=== PATIENT | female | born 1940 | race Caucasian/White ===

== ENCOUNTER → 2016-11-15 | Outpatient (CLI) | payer BC, OTHER ==
[~2016-11-15] VITALS: Ht 149.9 cm; Wt 76.4 kg
[~2016-11-15] MED LIST: ACET-1256 PO; AREDS PO; ASPI81TA28 PO; CHOL100010 PO; CLC100 PO; CRD4 PO; FAMO20TA11 PO; GUAISYP4 PO; HYDR25TA4 PO; LOSA1TAB38 PO; LVNIS30 SQ; METH-589 PO; METO1TAB69 PO; METO50TA7 PO; MULT-506 PO; MULT60CA PO; OXYC-57 PO; PRAM0.129 PO; PRAM0.5T10 PO; SIMV20TA2 PO; ULT50X PO; WATER PILL PO
[2016-11-15 11:21] VITALS: Ht 149.9 cm; Wt 76.4 kg
--- NOTE | 2016-11-15 11:40 | HISTORY & PHYSICAL EXAMINATION ---
DATE OF ADMISSION: 12/03/2016 CHIEF COMPLAINT: Right knee pain. HISTORY OF PRESENT ILLNESS: Suzette is a 75-year-old female patient of Dr. Barreto from [facility] with a long history of right knee pain that has failed conservative treatment such as behavior modification, physical therapy, injections, [id number] oral analgesics and anti-inflammatories, and rest. She admits to pain on a daily basis with activity and at rest. No new injuries or falls. She states it makes it difficult for her to perform certain activities of daily living and elective activities. She states the pain is more medial. Denies any numbness or tingling distally. No calf pain. PAST MEDICAL HISTORY: 1. Hypertension. 2. Hyperlipidemia. 3. History of thyroid dysfunction. 4. GERD. 5. Osteoarthritis. 6. Obesity. PAST SURGICAL HISTORY: 1. Hysterectomy. 2. Left bunion great toe. 3. Left elbow fracture. 4. Bilateral cataract surgery. SOCIAL HISTORY: The patient denies any alcohol, tobacco or illegal drug use. Lives at home in a safe environment. FAMILY HISTORY: Noncontributory. MEDICATIONS: 1. Vitamin D3 1000 international units twice daily. 2. Doxazosin 4 mg tab daily. 3. Losartan 100 mg tab daily. 4. Metoprolol 100 mg tab daily. 5. Multivitamin. 6. Pramipexole 0.25 mg tab at bedtime. 7. Simvastatin 20 mg tab at bedtime. ALLERGIES: No known drug allergies. REVIEW OF SYSTEMS: The patient denies headache, chest pain, shortness of breath, fevers, chills or night sweats. PHYSICAL EXAMINATION: GENERAL: The patient is alert and oriented x3 female. She is in no acute distress, pleasant, appears her currently stated age. HEAD, EYES, EARS, NOSE, AND THROAT: Head is atraumatic, normocephalic. Eyes are equal, round react to light and accommodation wearing glasses today. Her oral and nasal cavities are patent. No erythema or exudates. The patient has good dentition. No upper or lower dental plates. NECK: Supple. No JVD. No lymphadenopathy. CARDIAC: Regular rate and rhythm. S1 greater than S2. No murmurs, rubs or gallops appreciated. RESPIRATORY: Lungs are clear to auscultation bilaterally all lung schwab. No rales, rhonchi or wheezing. GASTROINTESTINAL: Abdomen is soft, nontender, nondistended. Normoactive bowel sounds all 4 quadrants. SKIN: Exam of the patient's right knee does not reveal any erythema, ecchymosis, abrasions, lacerations, skin breakdown or effusion. NEUROVASCULAR EXAMINATION: The right lower extremity distally reveals distal pulses +2. Capillary refill under 2 seconds. Good sensation with light touch. Toes freely mobile. +5 strength with dorsi and plantarflexion. Calf is supple, nontender. MUSCULOSKELETAL: Exam of the patient's right knee reveals range of motion 0, 3, 115 degrees with pain at endpoints. She has medial joint line tenderness. She has positive Elias's test with pain radiating medially. She has crepitation noted in the patellofemoral joint. Her extensor mechanism is intact. Ligaments are stable regarding cruciate and collateral ligaments. No obvious cystic changes or masses in the popliteal fossa. Mild antalgic gait appreciated. RADIOGRAPHS: The patient's right knee reveals periarticular osteophytosis, sclerotic bone change, joint space narrowing. There is no significant evidence of subchondral cyst formation, no fracture, dislocation, subluxation otherwise. IMPRESSION: Right knee osteoarthritis. PLAN: Suzette will undergo a right total knee arthroplasty by Dr. Lara from [facility] at the [facility] on 12/03/2016. She will require preoperative medical clearance through her PCP, Dr. Sabina Saleh on 11/18/2016. She already has an EKG and chest x-ray valid from February 2016 for her left knee surgery and that will be again utilized for her upcoming right knee replacement. She will obtain a preoperative CBC with diff, electrolytes, BUN, creatinine, PT/INR at the [facility] today after her visit with the preadmission testing. She will take her antihypertensive the morning of surgery with a sip of water. She is requesting to use [facility] home health services after discharge from the hospital, use Coumadin x6 weeks for DVT prophylaxis with a target INR of 2.0-3.0 and biweekly lab draws. Orders will be placed upon discharge for those along with physical therapy. Suzette will follow up with Dr. Lara 2 weeks after surgery at [facility] on 12/17/2016 for staple removal. Will discontinue any antiplatelets 1 week prior to surgery such as aspirin or [id number] oral anti-inflammatories. No other questions or concerns, if so notify [facility] at [phone].
--- NOTE | 2016-11-15 11:52 | PAT Medication Instructions ---
Service Date Nov 15, 2016. Current Home Medication List Acetaminophen (Tylenol), 1,000 MG PO Q6 PRN for Pain Cholecalciferol (Vitamin D), 2,000 INTER.UNIT PO QPM Doxazosin Mesylate (Doxazosin Mesylate), 1 TAB PO QPM Losartan Potassium (Cozaar), 100 MG PO QAM Methimazole (Methimazole ), 5 MG PO QAM Metoprolol Succ (Toprol Xl) (Toprol-Xl), 100 MG PO NOON Multiple Vitamins W/ Minerals (Preservision Areds 2), 2 CAP PO BID Pramipexole (Mirapex), 0.125 MG PO QPM Simvastatin (Zocor), 20 MG PO QPM Medication Instructions For Your Scheduled Surgery - Continue as usual: Metoprolol Succ (Toprol Xl) (Toprol-Xl), 100 MG PO NOON - Hold the following medications the morning of surgery: Multiple Vitamins W/ Minerals (Preservision Areds 2), 2 CAP PO BID Losartan Potassium (Cozaar), 100 MG PO QAM - Take the following medications the morning of surgery with a sip of water: Methimazole (Methimazole ), 5 MG PO QAM Acetaminophen (Tylenol), 1,000 MG PO Q6 PRN for Pain - Hold the following medications as scheduled the night before surgery: Pramipexole (Mirapex), 0.125 MG PO QPM - Take the following medications as scheduled the night before surgery: Simvastatin (Zocor), 20 MG PO QPM Multiple Vitamins W/ Minerals (Preservision Areds 2), 2 CAP PO BID\ Doxazosin Mesylate (Doxazosin Mesylate), 1 TAB PO QPM Cholecalciferol (Vitamin D), 2,000 INTER.UNIT PO QPM Acetaminophen (Tylenol), 1,000 MG PO Q6 PRN for Pain If you have any questions please call us at [phone] (Akosua Cruz PA-C) or [phone] or [phone]
[2016-11-15 12:22] LABS: BASO % 0.3 %; BASO ABS # 0.02 K/uL (0-0.2); COMPLETE YES; HEMATOCRIT 37.6 % (37-47); IG% 0.2 %; LYMPH % 22.8 %; LYMPH ABS # 1.47 K/uL (1.2-3.4); MEAN CELL VOLUME 87.4 fL (80-100); MEAN CORPUSCULAR HEMOGLOBIN 29.3 pg (25-34); MEAN CORPUSCULAR HGB CONC 33.5 g/dl (32-36); MEAN PLATELET VOLUME 9.3 fL (7.4-10.4); MONO % 7.6 %; NEUT % 65.1 %; PLATELET COUNT 197 K/uL (130-400); WHITE BLOOD COUNT 6.45 K/uL (4.8-10.8)
[2016-11-15 12:38] LABS: INR 1.1 (0.9-1.1); PROTHROMBIN TIME (PATIENT) 11.3 SECONDS (9.0-12.0)
[2016-11-15 13:06] LABS: BUN/CREATININE RATIO 22.7 (10-20); CALCIUM 8.3 mg/dl (8.5-10.1); CREATININE 0.69 mg/dl (0.60-1.20); POTASSIUM 3.5 mmol/L (3.5-5.1)
== END | disposition home or self-care (01) ==
LOC: C.LAB 08:00 → EDSTATUS 12-03 12:36
PROVIDERS: ATTEND Physical Medicine & Rehabilitation Sports Medicine
DX: M17.9 Osteoarthritis of knee, unspecified (principal)

== ENCOUNTER 2016-11-24 15:42 | Observation (INO) | payer BC, OTHER ==
[~2016-11-24] VITALS: Ht 149.9 cm; Wt 76.8 kg
[~2016-11-24 15:42] MED LIST changes: -AREDS PO; -ASPI81TA28 PO; -CLC100 PO; -FAMO20TA11 PO; -GUAISYP4 PO; -HYDR25TA4 PO; -LVNIS30 SQ; -METO1TAB69 PO; -MULT-506 PO; -OXYC-57 PO; -PRAM0.5T10 PO; -ULT50X PO; -WATER PILL PO
[2016-11-24] MEDS ORDERED: SODIUM CHLORIDE 0.9% 1000ML 1,000 ML IV STA (16:11)
[2016-11-24] MEDS ORDERED: ONDANSETRON INJ 2 MG/ML 2 ML VIAL IV STA (16:11)
[2016-11-24 16:21] LABS: BASO % 0.1 %; BASO ABS # 0.01 K/uL (0-0.2); COMPLETE YES; EOS % 1.6 %; HEMATOCRIT 39.3 % (37-47); IG% 0.1 %; LYMPH % 13.7 %; LYMPH ABS # 1.08 K/uL (1.2-3.4); MEAN CELL VOLUME 87.1 fL (80-100); MEAN CORPUSCULAR HEMOGLOBIN 30.6 pg (25-34); MEAN CORPUSCULAR HGB CONC 35.1 g/dl (32-36); MEAN PLATELET VOLUME 9.4 fL (7.4-10.4); MONO % 6.8 %; NEUT % 77.7 %; PLATELET COUNT 187 K/uL (130-400); RED BLOOD COUNT 4.51 M/uL (4.2-5.4); WHITE BLOOD COUNT 7.89 K/uL (4.8-10.8)
[2016-11-24] MEDS: MoRPHine SULFATE 4 MG/ML 1 ML CARP\\VIAL IV PRN ×3 (16:28→19:32)
[2016-11-24 16:29] LABS: PROTHROMBIN TIME (PATIENT) 11.1 SECONDS (9.0-12.0)
--- NOTE | 2016-11-24 16:32 | EMERGENCY ROOM VISIT NOTE ---
History Report prepared by Nawaf: Lala Hqaue Under the Supervision of: Dr. Roberth Bruce D.O. First contact with patient: 16:10 Chief Complaint: VOMITING Stated Complaint: VOMITING, TERRIBLE STOMACH Nursing Triage Summary: Vomiting since 1329. "I have a terrible stomach ache on my right side." Denies urinary symptoms. Pain with coughing. Denies SOB. History of Present Illness The patient is a 75 year old female who presents to the Emergency Room with complaints of constant vomiting beginning 2 and a half hours ago. She states that she had curly fries at [employer] and then she started vomiting consistently after that. She notes abdominal pain and chills. The patient denies any fever, back pain, and diarrhea. She notes that no one at home is sick. Source of History: patient Onset: 2.5 hours ago Position: other (global) Timing: constant Associated Symptoms: + abdominal pain, + chills, No back pain, No diarrhea, No fevers Review of Systems See HPI for pertinent positives & negatives. A total of 10 systems reviewed and were otherwise negative. Past Medical & Surgical Medical Problems: (1) High cholesterol (2) HTN (hypertension) (3) Left knee DJD Surgical Problems: (1) H/O: hysterectomy Family History No pertinent family history stated. Social History Smoking Status: Never Smoker Marital Status: Housing Status: lives with significant other Current/Historical Medications Scheduled Cholecalciferol (Vitamin D), 2,000 INTER.UNIT PO QPM Doxazosin Mesylate (Doxazosin Mesylate), 1 TAB PO QPM Losartan Potassium (Cozaar), 100 MG PO QAM Methimazole (Methimazole ), 5 MG PO QAM Metoprolol Succ (Toprol Xl) (Toprol-Xl ), 100 MG PO DAILY Pramipexole (Mirapex), 0.125 MG PO QPM Simvastatin (Zocor), 20 MG PO QPM [Water Pill], 1 TAB PO DAILY Scheduled PRN Acetaminophen (Tylenol), 1,000 MG PO Q6 PRN for Pain Allergies Coded Allergies: Latex1 -Allergic Contact Dermititis (Verified Allergy, Unknown, RASH, 11/24) NO KNOWN DRUG ALLERGIES (Verified Allergy, Unknown, NKDA, 11/24/16) Physical Exam Vital Signs Date Time Temp Pulse Resp B/P Pulse Ox O2 Delivery O2 Flow Rate FiO2 11/24/16 20:33 77 14 123/98 98 Nasal Cannula 2.0 11/24/16 19:33 76 20 151/96 93 Room Air 11/24/16 18:08 71 20 168/90 98 Room Air 11/24/16 17:10 68 20 186/94 96 Room Air 11/24/16 16:24 68 11/24/16 15:46 36.8 68 18 184/104 97 Room Air Physical Exam GENERAL: Patient is awake, alert, somewhat anxious appearing and uncomfortable. EYES: The conjunctivae are clear. The pupils are round and reactive. EARS, NOSE, MOUTH AND THROAT: The nose is without any evidence of any deformity. Mucous membranes are moist tongue is midline NECK: The neck is nontender and supple. RESPIRATORY: Normal respiratory effort is noted there is no evidence of wheezing rhonchi or rales CARDIOVASCULAR: Regular rate and rhythm noted there no murmurs rubs or gallops normal S1 normal S2 GASTROINTESTINAL: Moderately distended but soft RUQ tenderness to palpation but no definite guarding or rigidity. BACK: No midline tenderness or or step-off noted range of motion in flexion extension as well as rotation no signs of muscle spasm noted. No tenderness and no CVA tenderness to palpation. MUSCULOSKELETAL/EXTREMITIES: There is no evidence of gross deformity full range of motion is noted in the hips and shoulders SKIN: There is no obvious evidence of any rash. There are no petechiae, pallor or cyanosis noted. NEUROLOGIC: Patient is awake alert and oriented x3 Medical Decision & Procedures ER Provider Diagnostic Interpretation: X ray results and stated below per my interpretation and radiology interpretation. Other radiology results per my review and radiologist interpretation: SINGLE VIEW CHEST FINDINGS: An AP, portable, upright chest radiograph is compared to study dated 01/23/2016. The examination is degraded by portable technique and patient rotation. The heart is mildly enlarged and there is atherosclerotic calcification of the thoracic aorta. The pulmonary vasculature is noncongested. Chronic interstitial thickening is unchanged. Linear atelectasis versus scarring is again seen in the left lower lung. No airspace consolidation or large pleural effusion is identified. No pneumothorax is seen. The skeletal structures are osteopenic. There are healed right-sided rib fractures. IMPRESSION: Cardiomegaly and chronic changes as above. There is no acute cardiopulmonary abnormality. Electronically signed by: Oswald Cunningham M.D. 11/24/2016 4:39 PM Dictated Date/Time: 11/24/2016 4:37 PM KUB FINDINGS: 2 AP abdominal radiographs are obtained. No prior studies are available for comparison at the time of dictation. There is a nonobstructed abdominal bowel gas pattern noting moderate to severe colonic fecal retention. No evidence of intraperitoneal free air is seen. There are no abnormal abdominal calcifications. Numerous phleboliths are identified in the pelvis. The skeletal structures are osteopenic. There is mild to moderate lumbosacral spondylosis as well as scoliosis. The bony pelvis appears intact. Cardiac enlargement is observed. The lung bases are otherwise clear as imaged. IMPRESSION: Nonobstructed abdominal bowel gas pattern noting moderate to severe colonic fecal retention. Electronically signed by: Oswald Cunningham M.D. 11/24/2016 4:57 PM Dictated Date/Time: 11/24/2016 4:56 PM ULTRASOUND RIGHT UPPER QUADRANT ABDOMEN FINDINGS: Liver: The liver is normal in size and echotexture. There is no intrahepatic biliary ductal dilatation. The main portal vein is patent. Gallbladder: The gallbladder is normal in appearance. No gallstones are identified. There is no gallbladder wall thickening or pericholecystic fluid. A sonographic Vera's sign is reportedly absent. The common bile duct measures up to 0.6 cm in diameter. Pancreas: Visualized portions of the pancreatic head and body are normal in appearance. The splenic vein is patent. Right kidney: Survey images of the right kidney demonstrate cortical atrophy. There is no hydronephrosis. Ascites: None. IMPRESSION: Unremarkable sonographic assessment of the right upper quadrant. No gallstones are identified. Electronically signed by: Oswald Cunningham M.D. 11/24/2016 5:38 PM Dictated Date/Time: 11/24/2016 5:[address] SCAN OF THE ABDOMEN AND PELVIS WITHOUT IV CONTRAST FINDINGS: Lung bases: The heart is normal in size and there is trace pericardial effusion. The lung bases are clear. There is a small to moderate hiatal hernia. There is subareolar density in the left breast, best seen on axial image #30. Liver: The unenhanced liver is normal in size, contour, and attenuation. There is no intrahepatic biliary ductal dilatation. Gallbladder: Unremarkable. Spleen: Normal in size and attenuation. Pancreas: Unremarkable. Adrenal glands: Unremarkable. Kidneys: The unenhanced kidneys demonstrate cortical atrophy and are without hydronephrosis. There are no renal calculi identified. A 1.5 cm hyperdense lesion arising from the right lower pole likely represents a complex/hemorrhagic cyst. Abdominal vasculature: The abdominal aorta is normal in course and caliber noting mild to moderate atherosclerotic calcification. Bowel: The small bowel and colon are normal in course and caliber. There is moderate colonic fecal retention. The appendix is well-visualized and normal. Peritoneum: There is no intraperitoneal free air or abdominal ascites. There is a small fat-containing umbilical hernia. Lymphadenopathy: None. Pelvic viscera: The bladder is normal as visualized. The uterus is surgically absent. There is a complex solid and cystic mass lesion in the right adnexa, best seen on axial image #365 and likely related to right ovary. This measures 4.5 x 7.5 x 5.5 cm and demonstrates large foci of mural nodularity. There is mild prominence of the left ovary for age which measures up to 2 cm in axial length as seen on image #344. Numerous phleboliths are observed in the pelvis. Skeletal structures: The skeletal structures are osteopenic. There is moderate lumbosacral spondylosis. No lytic or blastic lesions are seen. There are healed right-sided rib fractures. IMPRESSION: 1. Suboptimal examination without oral and IV contrast. 2. There are no acute infectious or inflammatory findings in the abdomen or pelvis. 3. There is a 7.5 cm solid and cystic mass lesion in the right adnexa, likely related to the right ovary. The appearance is highly concerning for ovarian neoplasm. Gynecologic follow-up is recommended. 4. The left ovary also appears enlarged for age and may be involved. 5. Moderate constipation. 6. There is no evidence of metastatic disease in the abdomen or pelvis. 7. There is indeterminant subareolar density in the left breast which appears asymmetric to the right. If not recently performed follow-up with an outpatient mammogram is recommended. Electronically signed by: Oswald Cunningham M.D. 11/24/2016 6:50 PM Dictated Date/Time: 11/24/2016 6:40 PM Laboratory Results 11/24/16 16:05 Red Blood Count 4.51, Mean Corpuscular Volume 87.1, Mean Corpuscular Hemoglobin 30.6, Mean Corpuscular Hemoglobin Concent 35.1, Mean Platelet Volume 9.4, Neutrophils (%) (Auto) 77.7, Lymphocytes (%) (Auto) 13.7, Monocytes (%) (Auto) 6.8, Eosinophils (%) (Auto) 1.6, Basophils (%) (Auto) 0.1, Neutrophils # (Auto) 6.12, Lymphocytes # (Auto) 1.08, Monocytes # (Auto) 0.54, Eosinophils # (Auto) 0.13, Basophils # (Auto) 0.01 11/24/16 16:05 Test 11/24/16 16:00 11/24/16 16:05 Urine Color YELLOW Urine Appearance CLOUDY (CLEAR) Urine pH 8.0 (4.5-7.5) Urine Specific [place] 1.010 (1.000-1.030) Urine Protein NEG (NEG) Urine Glucose (UA) NEG (NEG) Urine Ketones NEG (NEG) Urine Occult Blood TRACE (NEG) Urine Nitrite NEG (NEG) Urine Bilirubin NEG (NEG) Urine Urobilinogen NEG (NEG) Urine Leukocyte Esterase TRACE (NEG) Urine WBC (Auto) 1-5 /hpf (0-5) Urine RBC (Auto) 5-10 /hpf (0-4) Urine Hyaline Casts (Auto) 1-5 /lpf (0-5) Urine Epithelial Cells (Auto) >30 /lpf (0-5) Urine Bacteria (Auto) 1+ (NEG) White Blood Count 7.89 K/uL (4.8-10.8) Red Blood Count 4.51 M/uL (4.2-5.4) Hemoglobin 13.8 g/dL (12.0-16.0) Hematocrit 39.3 % (37-47) Mean Corpuscular Volume 87.1 fL (80-100) Mean Corpuscular Hemoglobin 30.6 pg (25-34) Mean Corpuscular Hemoglobin Concent 35.1 g/dl (32-36) Platelet Count 187 K/uL (130-400) Mean Platelet Volume 9.4 fL (7.4-10.4) Neutrophils (%) (Auto) 77.7 % Lymphocytes (%) (Auto) 13.7 % Monocytes (%) (Auto) 6.8 % Eosinophils (%) (Auto) 1.6 % Basophils (%) (Auto) 0.1 % Neutrophils # (Auto) 6.12 K/uL (1.4-6.5) Lymphocytes # (Auto) 1.08 K/uL (1.2-3.4) Monocytes # (Auto) 0.54 K/uL (0.11-0.59) Eosinophils # (Auto) 0.13 K/uL (0-0.5) Basophils # (Auto) 0.01 K/uL (0-0.2) RDW Standard Deviation 41.6 fL (36.4-46.3) RDW Coefficient of Variation 13.0 % (11.5-14.5) Immature Granulocyte % (Auto) 0.1 % Immature Granulocyte # (Auto) 0.01 K/uL (0.00-0.02) Prothrombin Time 11.1 SECONDS (9.0-12.0) Prothromb Time International Ratio 1.0 (0.9-1.1) Activated Partial Thromboplast Time 25.5 SECONDS (21.0-31.0) Partial Thromboplastin Ratio 1.0 Anion Gap 10.0 mmol/L (3-11) Est Creatinine Clear Calc Drug Dose 53.2 ml/min Estimated GFR () 80.5 Estimated GFR (Non- 69.5 BUN/Creatinine Ratio 20.8 (10-20) Calcium Level 8.4 mg/dl (8.5-10.1) Total Bilirubin 0.9 mg/dl (0.2-1) Direct Bilirubin 0.2 mg/dl (0-0.2) Aspartate Amino Transf (AST/SGOT) 10 U/L (15-37) Alanine Aminotransferase (ALT/SGPT) 19 U/L (12-78) Alkaline Phosphatase 113 U/L (45-117) Total Creatine Kinase 53 U/L (26-192) Creatine Kinase MB < 0.5 ng/ml (0.5-3.6) Creatine Kinase MB Ratio (0-3.0) Troponin I < 0.015 ng/ml (0-0.045) Total Protein 7.5 gm/dl (6.4-8.2) Albumin 3.5 gm/dl (3.4-5.0) Lipase 149 U/L (73-393) Laboratory results per my review. Medications Administered Medications (Trade) Dose Ordered Sig/Vasile Route Start Time Stop Time Status Last Admin Dose Admin Sodium Chloride (Nss 1000ml) 1,000 ml @ 999 mls/hr Q1H1M STAT IV 11/24/16 16:11 11/24/16 17:11 DC 11/24/16 16:28 999 MLS/HR Morphine Sulfate (MoRPHine SULFATE INJ) 4 mg Q15M PRN IV 11/24/16 16:15 12/08/16 16:14 11/24/16 19:32 4 MG Ondansetron HCl (Zofran Inj) 4 mg NOW STAT IV 11/24/16 16:11 11/24/16 16:13 DC 11/24/16 16:28 4 MG Potassium Chloride (Kcl 10 Meq / Wtr) 10 meq NOW STAT IV 11/24/16 17:07 11/24/16 17:08 DC 11/24/16 18:06 10 MEQ ECG Indication: vomiting Rate (beats per minute): 64 Rhythm: normal sinus Findings: no ectopy, other (no st segment abnormalities) Comparison ECG Date: no prior available ED Course 1610: The patient was evaluated in room B9. A complete history and physical examination were performed. 1611: Zofran Inj 4mg IV, NSS 1,000 ml @ 999 mls/hr IV, Morphine Sulfate 4mg PRN IV pain. 1707: Potassium Chloride 10meq IV. 1830: I discussed the patient's case with Dr. Orozco. The patient will be evaluated for further management. 1835: Upon reevaluation, the patient is hemodynamically stable. I discussed results and treatment plan with the patient. She verbalizes agreement and understanding. I spoke with Dr. Orozco of the [facility]. The patient will be evaluated for further management and care. Medical Decision Differential diagnosis: Etiologies such as appendicitis, diverticulitis, PUD, biliary pathology, UTI, pancreatitis, obstruction, mesenteric ischemia, aortic pathology, infections, inflammatory bowel disease, renal colic, as well as others were entertained. Nursing notes reviewed. The patient is a 75-year-old female who presented to the emergency apartment for an evaluation of nausea vomiting. The patient ate a meal at a local restaurant and then started noticing severe nausea vomiting symptoms. She also had right-sided abdominal pain. Initially I thought the patient's condition was consistent with all bladder disorder. The patient did not appear to have any abnormality on ultrasound. I discussed the patient's laboratory radiographic studies with her. She was reevaluated multiple times. Because of her ongoing symptoms I did a noncontrast CT to see if there was any kidney stones. The patient was found have a pelvic mass as well as a possible breast mass. I discussed the patient's laboratory radiographic studies with her. I also discussed her case with the on-call [facility] hospitalist group because of her ongoing symptoms. She was treated with IV fluids IV pain medicine and IV antiemetics. She was also treated with potassium. Consults Time Called: 1932 Consulting Physician: Dr. Orozco Returned Call: [phone] I discussed the patient's case with Dr. Orozco. The patient will be evaluated for further management. Impression Primary Impression: Intractable abdominal pain Additional Impressions: Nausea & vomiting Hypokalemia Pelvic mass Breast mass Scribe Attestation The scribe's documentation has been prepared under my direction and personally reviewed by me in its entirety. I confirm that the note above accurately reflects all work, treatment, procedures, and medical decision making performed by me. Departure Information Dispostion Being Evaluated By Hospitalist Referrals Sabina Saleh M.D. (PCP) Patient Instructions My [facility] Problem Qualifiers
[2016-11-24 16:36] LABS: ALT/SGPT 19 U/L (12-78); AST/SGOT 10 U/L (15-37); BLOOD UREA NITROGEN 17 mg/dl (7-18); BUN/CREATININE RATIO 20.8 (10-20); CALCIUM 8.4 mg/dl (8.5-10.1); CARBON DIOXIDE 31 mmol/L (21-32); CHLORIDE 97 mmol/L (98-107); CREATININE 0.83 mg/dl (0.60-1.20); GLUCOSE 116 mg/dl (70-99); POTASSIUM 2.9 mmol/L (3.5-5.1); SODIUM 138 mmol/L (136-145)
[2016-11-24 16:41] LABS: ALKALINE PHOSPHATASE 113 U/L (45-117)
--- NOTE | 2016-11-24 16:41 | DIAGNOSTIC IMAGING REPORT ---
SINGLE VIEW CHEST CLINICAL HISTORY: Generalized abdominal pain. FINDINGS: An AP, portable, upright chest radiograph is compared to study dated 01/23/2016. The examination is degraded by portable technique and patient rotation. The heart is mildly enlarged and there is atherosclerotic calcification of the thoracic aorta. The pulmonary vasculature is noncongested. Chronic interstitial thickening is unchanged. Linear atelectasis versus scarring is again seen in the left lower lung. No airspace consolidation or large pleural effusion is identified. No pneumothorax is seen. The skeletal structures are osteopenic. There are healed right-sided rib fractures. IMPRESSION: Cardiomegaly and chronic changes as above. There is no acute cardiopulmonary abnormality. Electronically signed by: Oswald Cunningham M.D. 11/24/2016 4:39 PM Dictated Date/Time: 11/24/2016 4:37 PM
[2016-11-24] MEDS ORDERED: WATER PILL PO (16:49)
[2016-11-24] MEDS ORDERED: METO1TAB69 PO (16:50)
--- NOTE | 2016-11-24 16:59 | DIAGNOSTIC IMAGING REPORT ---
KUB CLINICAL HISTORY: Right-sided abdominal pain. FINDINGS: 2 AP abdominal radiographs are obtained. No prior studies are available for comparison at the time of dictation. There is a nonobstructed abdominal bowel gas pattern noting moderate to severe colonic fecal retention. No evidence of intraperitoneal free air is seen. There are no abnormal abdominal calcifications. Numerous phleboliths are identified in the pelvis. The skeletal structures are osteopenic. There is mild to moderate lumbosacral spondylosis as well as scoliosis. The bony pelvis appears intact. Cardiac enlargement is observed. The lung bases are otherwise clear as imaged. IMPRESSION: Nonobstructed abdominal bowel gas pattern noting moderate to severe colonic fecal retention. Electronically signed by: Oswald Cunningham M.D. 11/24/2016 4:57 PM Dictated Date/Time: 11/24/2016 4:56 PM
[2016-11-24 17:00] LABS: URINE APPEARANCE CLOUDY (CLEAR); URINE BILIRUBIN NEG (NEG); URINE COLOR YELLOW; URINE EPITHELIAL CELL AUTO >30 /lpf (0-5); URINE NITRITE NEG (NEG); UROBILINOGEN NEG (NEG)
[2016-11-24 17:04] LABS: MANUAL MICROSCOPIC REQUIRED? NO; REVIEW REQ? NO
[2016-11-24] MEDS ORDERED: POTASSIUM CHLORIDE 10 MEQ / 100ML WTR IV STA (17:07)
--- NOTE | 2016-11-24 17:40 | DIAGNOSTIC IMAGING REPORT ---
ULTRASOUND RIGHT UPPER QUADRANT ABDOMEN CLINICAL HISTORY: Right-sided abdominal pain. COMPARISON STUDY: KUB dated 11/24/2016. TECHNIQUE: Real-time, grayscale, and color flow sonography of the right upper quadrant of the abdomen was performed. Images are reviewed in the transverse and longitudinal planes. FINDINGS: Liver: The liver is normal in size and echotexture. There is no intrahepatic biliary ductal dilatation. The main portal vein is patent. Gallbladder: The gallbladder is normal in appearance. No gallstones are identified. There is no gallbladder wall thickening or pericholecystic fluid. A sonographic Vera's sign is reportedly absent. The common bile duct measures up to 0.6 cm in diameter. Pancreas: Visualized portions of the pancreatic head and body are normal in appearance. The splenic vein is patent. Right kidney: Survey images of the right kidney demonstrate cortical atrophy. There is no hydronephrosis. Ascites: None. IMPRESSION: Unremarkable sonographic assessment of the right upper quadrant. No gallstones are identified. Electronically signed by: Oswald Cunningham M.D. 11/24/2016 5:38 PM Dictated Date/Time: 11/24/2016 5:36 PM
--- NOTE | 2016-11-24 18:51 | DIAGNOSTIC IMAGING REPORT ---
CT SCAN OF THE ABDOMEN AND PELVIS WITHOUT IV CONTRAST CLINICAL HISTORY: Right-sided abdominal pain. COMPARISON STUDY: KUB and abdominal ultrasound dated 11/24/2016. TECHNIQUE: CT scan of the abdomen and pelvis is performed from the lung bases to the proximal femora. Images are reviewed in the axial, sagittal, and coronal planes. IV contrast was not administered for this examination as per the referring clinician. Note that the examination was performed and significant suboptimal fashion without oral and IV contrast. Automated dose control exposure was utilized. CT DOSE: 592.41 mGy.cm FINDINGS: Lung bases: The heart is normal in size and there is trace pericardial effusion. The lung bases are clear. There is a small to moderate hiatal hernia. There is subareolar density in the left breast, best seen on axial image #30. Liver: The unenhanced liver is normal in size, contour, and attenuation. There is no intrahepatic biliary ductal dilatation. Gallbladder: Unremarkable. Spleen: Normal in size and attenuation. Pancreas: Unremarkable. Adrenal glands: Unremarkable. Kidneys: The unenhanced kidneys demonstrate cortical atrophy and are without hydronephrosis. There are no renal calculi identified. A 1.5 cm hyperdense lesion arising from the right lower pole likely represents a complex/hemorrhagic cyst. Abdominal vasculature: The abdominal aorta is normal in course and caliber noting mild to moderate atherosclerotic calcification. Bowel: The small bowel and colon are normal in course and caliber. There is moderate colonic fecal retention. The appendix is well-visualized and normal. Peritoneum: There is no intraperitoneal free air or abdominal ascites. There is a small fat-containing umbilical hernia. Lymphadenopathy: None. Pelvic viscera: The bladder is normal as visualized. The uterus is surgically absent. There is a complex solid and cystic mass lesion in the right adnexa, best seen on axial image #365 and likely related to right ovary. This measures 4.5 x 7.5 x 5.5 cm and demonstrates large foci of mural nodularity. There is mild prominence of the left ovary for age which measures up to 2 cm in axial length as seen on image #344. Numerous phleboliths are observed in the pelvis. Skeletal structures: The skeletal structures are osteopenic. There is moderate lumbosacral spondylosis. No lytic or blastic lesions are seen. There are healed right-sided rib fractures. IMPRESSION: 1. Suboptimal examination without oral and IV contrast. 2. There are no acute infectious or inflammatory findings in the abdomen or pelvis. 3. There is a 7.5 cm solid and cystic mass lesion in the right adnexa, likely related to the right ovary. The appearance is highly concerning for ovarian neoplasm. Gynecologic follow-up is recommended. 4. The left ovary also appears enlarged for age and may be involved. 5. Moderate constipation. 6. There is no evidence of metastatic disease in the abdomen or pelvis. 7. There is indeterminant subareolar density in the left breast which appears asymmetric to the right. If not recently performed follow-up with an outpatient mammogram is recommended. Electronically signed by: Oswald Cunningham M.D. 11/24/2016 6:50 PM Dictated Date/Time: 11/24/2016 6:40 PM
[2016-11-24] MEDS ORDERED: ACETAMINOPHEN 325 MG TAB PO PRN (21:00)
[2016-11-24] MEDS ORDERED: MoRPHine SULFATE 4 MG/ML 1 ML CARP\\VIAL IV PRN (21:00)
[2016-11-24] MEDS ORDERED: ALUMINUM/MAGNESIUM/SIMETH (MAALOX MAX) 30 ML UDC PO PRN (21:00)
[2016-11-24] MEDS ORDERED: DiphenhydrAMINE HCL 50 MG/ML VIAL IV PRN (21:00)
[2016-11-24] MEDS ORDERED: PRAMIPEXOLE DIHYDROCHLORIDE 0.25MG TAB PO SCH (21:00)
[2016-11-24] MEDS ORDERED: MoRPHine SULFATE 2 MG/ML CARP IV PRN (21:00)
[2016-11-24] MEDS ORDERED: MAGNESIUM HYDROXIDE SUSP 30 ML UDC PO PRN (21:00)
[2016-11-24] MEDS ORDERED: BISACODYL 10 MG SUPP PR PRN (21:00)
[2016-11-24] MEDS ORDERED: LORAZEPAM 2 MG/ML 1 ML VIAL IV PRN (21:00)
[2016-11-24] MEDS ORDERED: ZOLPIDEM TARTRATE 5 MG TAB PO PRN ×2 (21:00)
[2016-11-24] MEDS ORDERED: IV FLUIDS COMPLETED PRN (21:00)
[2016-11-24] MEDS ORDERED: ONDANSETRON INJ 2 MG/ML 2 ML VIAL IV PRN ×2 (21:00)
[2016-11-24] MEDS ORDERED: PROMETHAZINE HCL INJ 12.5 MG in SODIUM CHLORIDE 0.9% 50ML 50 ML IV PRN (21:00)
[2016-11-24] MEDS ORDERED: DOXAZosin MESYLATE TAB 4 MG TAB PO SCH (21:00)
[2016-11-24 21:04] VITALS: Ht 149.9 cm; Wt 76.8 kg
[2016-11-24 22:10] VITALS: BP 130/88; PULSE 74; TEMP 36.8; O2SAT 96
[2016-11-24] MEDS ORDERED: LORAZEPAM INJ 0.5 MG in SYRINGE 0.75 ML IV PRN (22:30)
[2016-11-24] MEDS: NSS + 20MEQ KCL 1000ML 1,000 ML IV SCH (22:47)
[2016-11-24] MEDS: DOCUSATE SODIUM 100 MG CAP PO SCH (22:47)
--- NOTE | 2016-11-25 02:05 | History and Physical ---
History & Physical Date & Time of Service: Nov 25, 2016 at 01:51 Chief Complaint: Hypokalemia, Nausea, And Vomiting Primary Care Physician: Sabina Saleh M.D. History of Present Illness Source: patient The patient is a 75-year-old female who presents to the emergency department with complaint of constant abdominal pain, vomiting and chills that began about 2-1/2 hours prior to arrival. Her symptoms began shortly after eating curly fries at [employer]. Her whom is with her reports that he ate the same food and did not have any similar symptoms. She's had no recent travel, no sick exposures that she is aware. Past Medical/Surgical History Medical Problems: (1) High cholesterol Status: Chronic (2) HTN (hypertension) Status: Chronic Surgical Problems: (1) H/O: hysterectomy Status: Resolved Social History Smoking Status: Never Smoker Smokeless Tobacco Use: No Alcohol Use: none Drug Use: none Marital Status: Housing status: lives with family Multi-Drug Resistant Organisms History of MDRO: No Allergies Coded Allergies: Latex1 -Allergic Contact Dermititis (Verified Allergy, Unknown, RASH, 11/24) NO KNOWN DRUG ALLERGIES (Verified Allergy, Unknown, NKDA, 11/24/16) Home Medications Scheduled Cholecalciferol (Vitamin D), 2,000 INTER.UNIT PO QPM Doxazosin Mesylate (Doxazosin Mesylate), 1 TAB PO QPM Losartan Potassium (Cozaar), 100 MG PO QAM Methimazole (Methimazole ), 5 MG PO QAM Metoprolol Succ (Toprol Xl) (Toprol-Xl ), 100 MG PO DAILY Pramipexole (Mirapex), 0.125 MG PO QPM Simvastatin (Zocor), 20 MG PO QPM [Water Pill], 1 TAB PO DAILY Scheduled PRN Acetaminophen (Tylenol), 1,000 MG PO Q6 PRN for Pain Review of Systems The patient denies chest pain, palpitations, shortness of breath, cough, lower extremity swelling, vision change, hearing change, sore throat, fevers, chills, sweats, weight change, blood in urine or stool, dysuria, urinary frequency or urgency, headache, memory loss, rash, abnormal bruising or bleeding, imbalance , focal weakness, numbness or tingling in arms or legs, arthralgias or myalgias , back or neck pain, night sweats, or allergy symptoms. The review of systems is otherwise negative other than for that already noted above, and at least 10 systems have been reviewed. Physical Exam Vital Signs Date Time Temp Pulse Resp B/P Pulse Ox O2 Delivery O2 Flow Rate FiO2 11/25/16 00:21 Nasal Cannula 2.0 11/24/16 22:10 36.8 74 18 130/88 96 Nasal Cannula 2.0 11/24/16 21:04 Room Air 11/24/16 20:48 75 11/24/16 20:33 77 14 123/98 98 Nasal Cannula 2.0 11/24/16 19:33 76 20 151/96 93 Room Air 11/24/16 18:08 71 20 168/90 98 Room Air 11/24/16 17:10 68 20 186/94 96 Room Air 11/24/16 16:24 68 11/24/16 15:46 36.8 68 18 184/104 97 Room Air The patient is awake, well-developed and adequately nourished, alert and oriented 3, normocephalic and atraumatic, lying in bed and in no acute distress. HEENT--PERRL, EOMI, mucous membranes and oropharynx dry. Neck--supple, no JVD or bruits, thyroid normal, trachea midline, no adenopathy. Heart--normal S1 and S2, no extra beats, no murmurs, rubs or gallops. Lungs--clear bilaterally with good air movement, no respiratory distress, no accessory muscle use. Abdomen--normal bowel sounds and soft, nontender and nondistended, no hepatosplenomegaly. Extremities--no cyanosis, clubbing or edema. There are good distal pulses b/l. Dermatologic--normal skin turgor, normal color, warm and dry, no abnormal lymph nodes, no rash. Neurologic--cranial nerves II through XII grossly intact, motor and sensory examination normal. Rheumatologic--normal range of motion, nontender, muscles and joints. Psychiatric--normal affect. Diagnostics Laboratory Results Results Past 24 Hours Test 11/24/16 16:00 11/24/16 16:05 Range/Units Urine Color YELLOW Urine Appearance CLOUDY CLEAR Urine pH 8.0 4.5-7.5 Urine Specific [place] 1.010 1.000-1.030 Urine Protein NEG NEG Urine Glucose (UA) NEG NEG Urine Ketones NEG NEG Urine Occult Blood TRACE NEG Urine Nitrite NEG NEG Urine Bilirubin NEG NEG Urine Urobilinogen NEG NEG Urine Leukocyte Esterase TRACE NEG Urine WBC (Auto) 1-5 0-5 /hpf Urine RBC (Auto) 5-10 0-4 /hpf Urine Hyaline Casts (Auto) 1-5 0-5 /lpf Urine Epithelial Cells (Auto) >30 0-5 /lpf Urine Bacteria (Auto) 1+ NEG White Blood Count 7.89 4.8-10.8 K/uL Red Blood Count 4.51 4.2-5.4 M/uL Hemoglobin 13.8 12.0-16.0 g/dL Hematocrit 39.3 37-47 % Mean Corpuscular Volume 87.1 80-100 fL Mean Corpuscular Hemoglobin 30.6 25-34 pg Mean Corpuscular Hemoglobin Concent 35.1 32-36 g/dl Platelet Count 187 130-400 K/uL Mean Platelet Volume 9.4 7.4-10.4 fL Neutrophils (%) (Auto) 77.7 % Lymphocytes (%) (Auto) 13.7 % Monocytes (%) (Auto) 6.8 % Eosinophils (%) (Auto) 1.6 % Basophils (%) (Auto) 0.1 % Neutrophils # (Auto) 6.12 1.4-6.5 K/uL Lymphocytes # (Auto) 1.08 1.2-3.4 K/uL Monocytes # (Auto) 0.54 0.11-0.59 K/uL Eosinophils # (Auto) 0.13 0-0.5 K/uL Basophils # (Auto) 0.01 0-0.2 K/uL RDW Standard Deviation 41.6 36.4-46.3 fL RDW Coefficient of Variation 13.0 11.5-14.5 % Immature Granulocyte % (Auto) 0.1 % Immature Granulocyte # (Auto) 0.01 0.00-0.02 K/uL Prothrombin Time 11.1 9.0-12.0 SECONDS Prothromb Time International Ratio 1.0 0.9-1.1 Activated Partial Thromboplast Time 25.5 21.0-31.0 SECONDS Partial Thromboplastin Ratio 1.0 Sodium Level 138 136-145 mmol/L Potassium Level 2.9 3.5-5.1 mmol/L Chloride Level 97 98-107 mmol/L Carbon Dioxide Level 31 21-32 mmol/L Anion Gap 10.0 3-11 mmol/L Blood Urea Nitrogen 17 7-18 mg/dl Creatinine 0.83 0.60-1.20 mg/dl Est Creatinine Clear Calc Drug Dose 53.2 ml/min Estimated GFR () 80.5 Estimated GFR (Non- 69.5 BUN/Creatinine Ratio 20.8 10-20 Random Glucose 116 70-99 mg/dl Calcium Level 8.4 8.5-10.1 mg/dl Total Bilirubin 0.9 0.2-1 mg/dl Direct Bilirubin 0.2 0-0.2 mg/dl Aspartate Amino Transf (AST/SGOT) 10 15-37 U/L Alanine Aminotransferase (ALT/SGPT) 19 12-78 U/L Alkaline Phosphatase 113 45-117 U/L Total Creatine Kinase 53 26-192 U/L Creatine Kinase MB < 0.5 0.5-3.6 ng/ml Creatine Kinase MB Ratio 0-3.0 Troponin I < 0.015 0-0.045 ng/ml Total Protein 7.5 6.4-8.2 gm/dl Albumin 3.5 3.4-5.0 gm/dl Lipase 149 73-393 U/L Diagnostic Radiology Patient Name: TRUDI GONZALEZ Unit Number: [id number] Dictated: 11/24/161636 Transcribed: 11/24/161636 EV Printed Date/Time: [~ rep prt dt]/[~ rep prt tm] [~ rep ct labl] - [~ rep ct ivnm] [facility] [place] [place] [address] Dictated: 11/24/161636 Transcribed: 11/24/161636 EV Printed Date/Time: [~ rep prt dt]/[~ rep prt tm] [~ rep ct labl] - [~ rep ct ivnm] SINGLE VIEW CHEST CLINICAL HISTORY: Generalized abdominal pain. FINDINGS: An AP, portable, upright chest radiograph is compared to study dated 01/23/2016. The examination is degraded by portable technique and patient rotation. The heart is mildly enlarged and there is atherosclerotic calcification of the thoracic aorta. The pulmonary vasculature is noncongested. Chronic interstitial thickening is unchanged. Linear atelectasis versus scarring is again seen in the left lower lung. No airspace consolidation or large pleural effusion is identified. No pneumothorax is seen. The skeletal structures are osteopenic. There are healed right-sided rib fractures. IMPRESSION: Cardiomegaly and chronic changes as above. There is no acute cardiopulmonary abnormality. Electronically signed by: Oswald Cunningham M.D. 11/24/2016 4:39 PM Dictated Date/Time: 11/24/2016 4:37 PM The status of this report is Signed. Draft = Not yet reviewed or approved by Radiologist. Signed = Reviewed and approved by Radiologist. <AttendingPhy></AttendingPhy> <FamilyPhy>Sabina Saleh M.D.</FamilyPhy> < PrimaryPhy>Sabina Saleh M.D.</PrimaryPhy> <UnitNumber>[id number]</UnitNumber> < VisitNumber>[id number]</VisitNumber> <PatientName>TRUDI GONZALEZ</ PatientName> <DateOfBirth>1940</DateOfBirth> <Location>[facility]</Location> < ServiceDate>11/24/16</ServiceDate> <MNE>ESINDI</MNE> <OrderingPhy>Roberth Bruce D.O.</OrderingPhy> <OrderingPhyMNE>f rep ord dr bullock</OrderingPhyMNE> <DictatingPhyMNE>f rep dict dr bullock</DictatingPhyMNE> <CCListMNE>f rep ct kobe</ CCListMNE> <AdmittingPhyMNE>f pt admit dr bullock</AdmittingPhyMNE> <AttendingPhyMNE >f pt attend dr bullock</AttendingPhyMNE> <ConsultingPhyMNE>f pt consult dr bullock</ConsultingPhyMNE> <FamilyPhyMNE>f pt fam dr bullock</FamilyPhyMNE> <OtherPhyMNE>f pt other dr bullock</OtherPhyMNE> < PrimaryPhyMNE>f pt prim care dr bullock</PrimaryPhyMNE> <ReferringPhyMNE>f pt referring dr bullock</ReferringPhyMNE> Patient Name: TRUDI GONZALEZ Unit Number: [id number] Dictated: 11/24/161655 Transcribed: 11/24/161655 EV Printed Date/Time: [~ rep prt dt]/[~ rep prt tm] [~ rep ct labl] - [~ rep ct ivnm] [facility] Radiology Department [place] [id number] Dictated: 11/24/161655 Transcribed: 11/24/161655 EV Printed Date/Time: [~ rep prt dt]/[~ rep prt tm] [~ rep ct labl] - [~ rep ct ivnm] CLINICAL HISTORY: Right-sided abdominal pain. FINDINGS: 2 AP abdominal radiographs are obtained. No prior studies are available for comparison at the time of dictation. There is a nonobstructed abdominal bowel gas pattern noting moderate to severe colonic fecal retention. No evidence of intraperitoneal free air is seen. There are no abnormal abdominal calcifications. Numerous phleboliths are identified in the pelvis. The skeletal structures are osteopenic. There is mild to moderate lumbosacral spondylosis as well as scoliosis. The bony pelvis appears intact. Cardiac enlargement is observed. The lung bases are otherwise clear as imaged. IMPRESSION: Nonobstructed abdominal bowel gas pattern noting moderate to severe colonic fecal retention. Electronically signed by: Oswald Cunningham M.D. 11/24/2016 4:57 PM Dictated Date/Time: 11/24/2016 4:56 PM The status of this report is Signed. Draft = Not yet reviewed or approved by Radiologist. Signed = Reviewed and approved by Radiologist. <AttendingPhy></AttendingPhy> <FamilyPhy>Sabina Saleh M.D.</FamilyPhy> < PrimaryPhy>Sabina Saleh M.D.</PrimaryPhy> <UnitNumber>[id number]</UnitNumber> < VisitNumber>[id number]</VisitNumber> <PatientName>TRUDI GONZALEZ</ PatientName> <DateOfBirth>1940</DateOfBirth> <Location>[facility]</Location> < ServiceDate>11/24/16</ServiceDate> <MNE>ESINDI</MNE> <OrderingPhy>Roberth Bruce D.O.</OrderingPhy> <OrderingPhyMNE>f rep ord dr bullock</OrderingPhyMNE> <DictatingPhyMNE>f rep dict dr bullock</DictatingPhyMNE> <CCListMNE>f rep ct mne</ CCListMNE> <AdmittingPhyMNE>f pt admit dr bullock</AdmittingPhyMNE> <AttendingPhyMNE >f pt attend dr bullock</AttendingPhyMNE> <ConsultingPhyMNE>f pt consult dr bullock</ConsultingPhyMNE> <FamilyPhyMNE>f pt fam dr bullock</FamilyPhyMNE> <OtherPhyMNE>f pt other dr bullock</OtherPhyMNE> < PrimaryPhyMNE>f pt prim care dr bullock</PrimaryPhyMNE> <ReferringPhyMNE>f pt referring dr bullock</ReferringPhyMNE> Patient Name: TRUDI GONZALEZ Unit Number: [id number] Dictated: 11/24/161735 Transcribed: 11/24/161735 EV Printed Date/Time: [~ rep prt dt]/[~ rep prt tm] [~ rep ct labl] - [~ rep ct ivnm] [facility] [place] [place] [address] Dictated: 11/24/161735 Transcribed: 11/24/161735 EV Printed Date/Time: [~ rep prt dt]/[~ rep prt tm] [~ rep ct labl] - [~ rep ct ivnm] ULTRASOUND RIGHT UPPER QUADRANT ABDOMEN CLINICAL HISTORY: Right-sided abdominal pain. COMPARISON STUDY: KUB dated 11/24/2016. TECHNIQUE: Real-time, grayscale, and color flow sonography of the right upper quadrant of the abdomen was performed. Images are reviewed in the transverse and longitudinal planes. FINDINGS: Liver: The liver is normal in size and echotexture. There is no intrahepatic biliary ductal dilatation. The main portal vein is patent. Gallbladder: The gallbladder is normal in appearance. No gallstones are identified. There is no gallbladder wall thickening or pericholecystic fluid. A sonographic Vera's sign is reportedly absent. The common bile duct measures up to 0.6 cm in diameter. Pancreas: Visualized portions of the pancreatic head and body are normal in appearance. The splenic vein is patent. Right kidney: Survey images of the right kidney demonstrate cortical atrophy. There is no hydronephrosis. Ascites: None. IMPRESSION: Unremarkable sonographic assessment of the right upper quadrant. No gallstones are identified. Electronically signed by: Oswald Cunningham M.D. 11/24/2016 5:38 PM Dictated Date/Time: 11/24/2016 5:36 PM The status of this report is Signed. Draft = Not yet reviewed or approved by Radiologist. Signed = Reviewed and approved by Radiologist. <AttendingPhy></AttendingPhy> <FamilyPhy>Sabina Saleh M.D.</FamilyPhy> < PrimaryPhy>Sabina Saleh M.D.</PrimaryPhy> <UnitNumber>[id number]</UnitNumber> < VisitNumber>[id number]</VisitNumber> <PatientName>LISATRUDI J</ PatientName> <DateOfBirth>1940</DateOfBirth> <Location>[facility]</Location> < ServiceDate>11/24/16</ServiceDate> <MNE>ESINDI</MNE> <OrderingPhy>Roberth Bruce D.O.</OrderingPhy> <OrderingPhyMNE>f rep ord dr bullock</OrderingPhyMNE> <DictatingPhyMNE>f rep dict dr bullock</DictatingPhyMNE> <CCListMNE>f rep ct kobe</ CCListMNE> <AdmittingPhyMNE>f pt admit dr bullock</AdmittingPhyMNE> <AttendingPhyMNE >f pt attend dr bullock</AttendingPhyMNE> <ConsultingPhyMNE>f pt consult dr bullock</ConsultingPhyMNE> <FamilyPhyMNE>f pt fam dr bullock</FamilyPhyMNE> <OtherPhyMNE>f pt other dr bullock</OtherPhyMNE> < PrimaryPhyMNE>f pt prim care dr bullock</PrimaryPhyMNE> <ReferringPhyMNE>f pt referring dr bullock</ReferringPhyMNE> Patient Name: TRUDI GONZALEZ Unit Number: [id number] Dictated: 11/24/161839 Transcribed: 11/24/161839 EV Printed Date/Time: [~ rep prt dt]/[~ rep prt tm] [~ rep ct labl] - [~ rep ct ivnm] [facility] [place] [place] [address] Dictated: 11/24/161839 Transcribed: 11/24/161839 EV Printed Date/Time: [~ rep prt dt]/[~ rep prt tm] [~ rep ct labl] - [~ rep ct ivnm] CT SCAN OF THE ABDOMEN AND PELVIS WITHOUT IV CONTRAST CLINICAL HISTORY: Right-sided abdominal pain. COMPARISON STUDY: KUB and abdominal ultrasound dated 11/24/2016. TECHNIQUE: CT scan of the abdomen and pelvis is performed from the lung bases to the proximal femora. Images are reviewed in the axial, sagittal, and coronal planes. IV contrast was not administered for this examination as per the referring clinician. Note that the examination was performed and significant suboptimal fashion without oral and IV contrast. Automated dose control exposure was utilized. CT DOSE: 592.41 mGy.cm FINDINGS: Lung bases: The heart is normal in size and there is trace pericardial effusion. The lung bases are clear. There is a small to moderate hiatal hernia. There is subareolar density in the left breast, best seen on axial image #30. Liver: The unenhanced liver is normal in size, contour, and attenuation. There is no intrahepatic biliary ductal dilatation. Gallbladder: Unremarkable. Spleen: Normal in size and attenuation. Pancreas: Unremarkable. Adrenal glands: Unremarkable. Kidneys: The unenhanced kidneys demonstrate cortical atrophy and are without hydronephrosis. There are no renal calculi identified. A 1.5 cm hyperdense lesion arising from the right lower pole likely represents a complex/hemorrhagic cyst. Abdominal vasculature: The abdominal aorta is normal in course and caliber noting mild to moderate atherosclerotic calcification. Bowel: The small bowel and colon are normal in course and caliber. There is moderate colonic fecal retention. The appendix is well-visualized and normal. Peritoneum: There is no intraperitoneal free air or abdominal ascites. There is a small fat-containing umbilical hernia. Lymphadenopathy: None. Pelvic viscera: The bladder is normal as visualized. The uterus is surgically absent. There is a complex solid and cystic mass lesion in the right adnexa, best seen on axial image #365 and likely related to right ovary. This measures 4.5 x 7.5 x 5.5 cm and demonstrates large foci of mural nodularity. There is mild prominence of the left ovary for age which measures up to 2 cm in axial length as seen on image #344. Numerous phleboliths are observed in the pelvis. Skeletal structures: The skeletal structures are osteopenic. There is moderate lumbosacral spondylosis. No lytic or blastic lesions are seen. There are healed right-sided rib fractures. IMPRESSION: 1. Suboptimal examination without oral and IV contrast. 2. There are no acute infectious or inflammatory findings in the abdomen or pelvis. 3. There is a 7.5 cm solid and cystic mass lesion in the right adnexa, likely related to the right ovary. The appearance is highly concerning for ovarian neoplasm. Gynecologic follow-up is recommended. 4. The left ovary also appears enlarged for age and may be involved. 5. Moderate constipation. 6. There is no evidence of metastatic disease in the abdomen or pelvis. 7. There is indeterminant subareolar density in the left breast which appears asymmetric to the right. If not recently performed follow-up with an outpatient mammogram is recommended. Electronically signed by: Oswald Cunningham M.D. 11/24/2016 6:50 PM Dictated Date/Time: 11/24/2016 6:40 PM The status of this report is Signed. Draft = Not yet reviewed or approved by Radiologist. Signed = Reviewed and approved by Radiologist. <AttendingPhy></AttendingPhy> <FamilyPhy>Sabina Saleh M.D.</FamilyPhy> < PrimaryPhy>Sabina Saleh M.D.</PrimaryPhy> <UnitNumber>[id number]</UnitNumber> < VisitNumber>[id number]</VisitNumber> <PatientName>KHANH GONZALEZSIMONE Bell</ PatientName> <DateOfBirth>1940</DateOfBirth> <Location>[facility]</Location> < ServiceDate>11/24/16</ServiceDate> <MNE>ESINDI</MNE> <OrderingPhy>Roberth Bruce D.O.</OrderingPhy> <OrderingPhyMNE>f rep ord dr bullock</OrderingPhyMNE> <DictatingPhyMNE>f rep dict dr bullock</DictatingPhyMNE> <CCListMNE>f rep ct [place]</ CCListMNE> <AdmittingPhyMNE>f pt admit dr bullock</AdmittingPhyMNE> <AttendingPhyMNE >f pt attend dr bullock</AttendingPhyMNE> <ConsultingPhyMNE>f pt consult dr bullock</ConsultingPhyMNE> <FamilyPhyMNE>f pt fam dr bullock</FamilyPhyMNE> <OtherPhyMNE>f pt other dr bullock</OtherPhyMNE> < PrimaryPhyMNE>f pt prim care dr bullock</PrimaryPhyMNE> <ReferringPhyMNE>f pt referring dr bullock</ReferringPhyMNE> EKG EKG shows normal sinus rhythm at 64 bpm, there are no acute ST-T changes. Impression Assessment and Plan Nausea and vomiting--patient will be admitted to the medical floor, she will be made nothing by mouth except medications. She'll be placed on normal saline with potassium chloride 20 mEq at 100 mils per hour, Zofran 4 mg IV every 6 hours when necessary, pantoprazole 40 mg IV daily, and we'll repeat laboratories in the a.m. Differential includes food intolerance, viral gastroenteritis, toxin associated food poisoning among others. She will be primarily supportive at this time. Hypokalemia/dehydration--we'll place on normal saline with potassium chloride 20 mEq at 100 mils per hour, and hold her diuretic pill which was recently started. Hypertension--continue metoprolol succinate but change 100 mg by mouth daily 50 mg by mouth twice a day with hold parameters, doxazosin 1 mg by mouth every afternoon. Will hold losartan potassium 100 mg by mouth every morning, and unknown water pill daily. Hyperthyroidism--continue methimazole 5 mg by mouth every morning. Restless leg syndrome--continue Mirapex 0.125 mg by mouth every afternoon. Hypercholesterolemia--for now hold simvastatin 20 mg by mouth every evening. Level of Care Med/Surg Advanced Directives Existing Advance Directive: Yes Existing Living Will: Yes Existing Power of Stringing Machine Tender: Yes Resuscitation Status FULL RESUSCITATION VTE Prophylaxis VTE Risk Assessment Done? Y/N: Yes Risk Level: Moderate Given or contraindicated: SCD's Social Service Consult None Apply
[2016-11-25 06:21] LABS: BASO % 0.3 %; BASO ABS # 0.02 K/uL (0-0.2); COMPLETE YES; EOS % 0.6 %; HEMATOCRIT 33.2 % (37-47); IG% 0.1 %; LYMPH % 19.5 %; LYMPH ABS # 1.55 K/uL (1.2-3.4); MEAN CELL VOLUME 85.8 fL (80-100); MEAN CORPUSCULAR HEMOGLOBIN 29.7 pg (25-34); MEAN CORPUSCULAR HGB CONC 34.6 g/dl (32-36); MEAN PLATELET VOLUME 9.2 fL (7.4-10.4); MONO % 8.8 %; NEUT % 70.7 %; PLATELET COUNT 190 K/uL (130-400); RED BLOOD COUNT 3.87 M/uL (4.2-5.4); WHITE BLOOD COUNT 7.94 K/uL (4.8-10.8)
[2016-11-25 06:51] LABS: BUN/CREATININE RATIO 19.2 (10-20); CALCIUM 7.5 mg/dl (8.5-10.1); CREATININE 0.65 mg/dl (0.60-1.20); POTASSIUM 3.1 mmol/L (3.5-5.1)
[2016-11-25 07:22] VITALS: BP 122/72; PULSE 61; TEMP 36.7; O2SAT 99
[2016-11-25] MEDS: DOCUSATE SODIUM 100 MG CAP PO SCH (07:36)
[2016-11-25] MEDS: NSS + 20MEQ KCL 1000ML 1,000 ML IV SCH (07:37)
[2016-11-25 07:57] VITALS: O2SAT 97
[2016-11-25 08:00] VITALS: O2SAT 97
[2016-11-25] MEDS ORDERED: METOPROLOL SUCC 50MG EXT REL TAB PO SCH (08:00)
[2016-11-25] MEDS ORDERED: METHIMAZOLE 5 MG TAB PO SCH (08:00)
--- NOTE | 2016-11-25 13:47 | Discharge Instructions ---
Discharge Instructions Admission Admission Date: Nov 24, 2016 at 20:50 Admission Diagnosis: Hypokalemia, Nausea, And Vomiting. Discharge Care Plan - Problem: Medical Problems: (1) Breast mass (2) Hypokalemia (3) Intractable abdominal pain (4) Nausea & vomiting (5) Pelvic mass Care Plan - Goal(s): Improve function Care Plan - Instructions: Activity Recommendations: no limitations Recommended Home Diet: 1800 Bruce Wt Reduction, NPO Except Meds Provider Instructions: There is a 7.5 cm solid and cystic mass lesion in the right adnexa, likely related to the right ovary. The appearance is highly concerning for ovarian neoplasm. Gynecologic follow-up is recommended. VTE Core Measure Inpt VTE Proph given/why not?: Enoxaparin (Lovenox)SQ, SCD's Follow Up Follow-Up: Follow up with primary care physician for repeat potassium level in one week Follow up with Gynacologist for7.5 cm solid and cystic mass lesion in the right adnexa Work Instructions Return To Work: 5 days Lifting Limitations: none [place] Recommendations: Call your doctor if: * Temperature above 101 degrees * Pain not relieved by pain medicine ordered * There is increased drainage or redness from any incision * You have any unanswered questions or concerns. Your Doctors Instructions noted above were prepared by provider Sebastien Encinas.
[2016-11-25] MEDS ORDERED: FAMO20TA11 PO (14:00)
[2016-11-25] MEDS ORDERED: POTASSIUM CHLORIDE 20 MEQ TABCR PO ONE (14:00)
--- NOTE | 2016-11-25 14:11 | Discharge Summary ---
Discharge Summary Admission Date: Nov 24, 2016 at 20:50 Discharge Date: Nov 25, 2016 Discharge Disposition: Home Problems/Secondary Diagnoses: Nausea / vomiting likely gastritis hypokalemia Accidental discovery of right adnexal mass HTN Obesity Immunizations: Have You Had Influenza Vaccine: Unknown History of Tetanus Vaccine?: Unknown History of Pneumococcal: Unknown Medication Reconciliation New Medications: Famotidine (Pepcid) 20 Mg Tab 20 MG PO BID for 14 Days, #28 TAB Continued Medications: Acetaminophen (Tylenol) 500 Mg Tab 1000 MG PO Q6 PRN for Pain, TAB Cholecalciferol (Vitamin D) 1,000 Inter.unit Tab 2000 INTER.UNIT PO QPM, TAB Doxazosin Mesylate (Doxazosin Mesylate) 4 Mg Tab 1 TAB PO QPM for 90 Days, TAB 3 Refills Losartan Potassium (Cozaar) 100 Mg Tab 100 MG PO QAM, TAB Methimazole (Methimazole ) 5 Mg Tab 5 MG PO QAM Metoprolol Succ (Toprol Xl) (Toprol-Xl ) 100 Mg Tabcr 100 MG PO DAILY Pramipexole (Mirapex) 0.125 Mg Tab 0.125 MG PO QPM, TAB Simvastatin (Zocor) 20 Mg Tab 20 MG PO QPM, TAB [Water Pill] () Unknown Strength 1 TAB PO DAILY PATIENT UNAWARE OF MEDICAITON NAME. SHE JUST STARTED IT AND IT IS A DIRUETIC. IT IS NOT IN SURE SCRIPTS EITHER. Discharge Exam Review of Systems: Constitutional: No fever Eyes: No worsening of vision ENT: No hearing loss Respiratory: No cough, No shortness of breath, No sputum Cardiovascular: No chest pain Abdomen: No nausea, No vomiting Musculoskeletal: No joint pain, No muscle pain Physical Exam: General Appearance: WD/WN, no apparent distress Eyes: normal inspection, PERRL, EOMI ENT: normal ENT inspection, hearing grossly normal Neck: supple Respiratory/Chest: chest non-tender, lungs clear, normal breath sounds, no respiratory distress Cardiovascular: regular rate, rhythm, no edema, no gallop, no JVD, no murmur , normal peripheral pulses Abdomen / GI: non tender, soft, no organomegaly, no pulsatile mass Extremities: normal inspection Neurologic/Psychiatric: technical support coordinator II-XII nml as tested, no motor/sensory deficits , alert, normal mood/affect, oriented x 3 Skin: normal color, warm/dry, no rash Hospital Course [facility] started on IVF hydration and potassium supplement Vomiting resolved she was given oral potassium 40 mEq in the day of discharge also started on pepcid BID CT scan finding of 7.5 cm solid and cystic mass lesion in the right adnexa, likely related to the right ovary. The appearance is highly concerning for ovarian neoplasm. Gynecologic follow-up is recommended. The left ovary also appears enlarged for age and may be involved. There is indeterminant subareolar density in the left breast which appears asymmetric to the right. If not recently performed follow-up with an outpatient mammogram is recommended. she was instructed to follow up with PCP and [facility] as an out patient This includes examination of the patient, discharge planning, medication reconciliation, and communication with other providers. Discharge Instructions Please refer to the electronic Patient Visit Report (Discharge Instructions) for additional information.
[2016-11-25 14:35] VITALS: BP 122/72; PULSE 61; TEMP 36.7; O2SAT 97
[2017-02-17] MEDS ORDERED: HYDR25TA4 PO (16:42)
[2017-02-17] MEDS ORDERED: PRAM0.5T10 PO (16:42)
[2017-02-17] MEDS ORDERED: AREDS PO (16:42)
== END 2016-11-25 15:53 | disposition home or self-care (01) ==
LOC: ENRESERVTM → ENRESERVDT → C.EDB 15:43 → C.MS4W 20:50
PROVIDERS: ADMIT Hospitalist; ATTEND Hospitalist
DX: R11.2 Nausea with vomiting, unspecified (principal); E87.6 Hypokalemia; D49.59 Neoplasm of unspecified behavior of other genitourinary organ; I10 Essential (primary) hypertension; E66.9 Obesity, unspecified; E78.00 Pure hypercholesterolemia, unspecified; M17.12 Unilateral primary osteoarthritis, left knee; N63 Unspecified lump in breast; K44.9 Diaphragmatic hernia without obstruction or gangrene; G25.81 Restless legs syndrome; E05.90 Thyrotoxicosis, unspecified without thyrotoxic crisis or storm; M47.817 Spondylosis without myelopathy or radiculopathy, lumbosacral region; M41.9 Scoliosis, unspecified; Z91.040 Latex allergy status; Z90.710 Acquired absence of both cervix and uterus

== ENCOUNTER → 2016-11-27 | Outpatient (CLI) | payer BC ==
[~2016-11-27] MED LIST changes: +AREDS PO; +CLC100 PO; +FAMO20TA11 PO; +HYDR25TA4 PO; +LVNIS30 SQ; +METO1TAB69 PO; -METO50TA7 PO; -MULT60CA PO; +OXYC-57 PO; +PRAM0.5T10 PO; +ULT50X PO; +WATER PILL PO
--- NOTE | 2016-11-27 10:44 | DIAGNOSTIC IMAGING REPORT ---
PELVIC ULTRASOUND CLINICAL HISTORY: Ovarian cyst. COMPARISON STUDY: CT of the abdomen and pelvis November 24, 2016. TECHNIQUE: Transabdominal and transvaginal sonography of the pelvis was performed. FINDINGS: The patient is status post partial hysterectomy. The right ovary measures 8.2 x 5.5 x 5.7 cm and contains a complex cystic lesion that measures 7.4 x 4 x 3.9 cm. This lesion demonstrates wall irregularity with a peripheral nodular component that does not contain color flow. A few smaller cystic lesions within the right ovary measuring up to 2.4 cm. The left ovary measures 3.1 x 2.7 x 2.6 cm and contains a 1.7 cm hypoechoic lesion. Trace free fluid was noted within the left adnexa. Color flow is identified within each ovary. IMPRESSION: 1. Complex 7.4 cm cystic lesion arising from the right ovary. This is indeterminate and differential considerations include benign and malignant etiologies. This is pathologic in a postmenopausal patient and gynecologic consultation for consideration for resection is recommended. 2. Indeterminate 1.7 cm hypoechoic left ovarian lesion. 3. Trace fluid within the left adnexa. Electronically signed by: Rian Barrett M.D. 11/27/2016 10:42 AM Dictated Date/Time: 11/27/2016 10:36 AM
== END | disposition home or self-care (01) ==
LOC: C.ULTRBC 09:36
PROVIDERS: ATTEND Family Medicine
DX: N83.209 Unspecified ovarian cyst, unspecified side (principal)

== ENCOUNTER 2017-03-04 05:11 | Inpatient (IN) | payer BC, OTHER ==
[2017-02-12 14:38] LABS: BASO % 0.4 %; BASO ABS # 0.03 K/uL (0-0.2); COMPLETE YES; EOS % 2.9 %; HEMATOCRIT 37.8 % (37-47); IG% 0.1 %; LYMPH % 23.8 %; LYMPH ABS # 1.73 K/uL (1.2-3.4); MEAN CELL VOLUME 88.9 fL (80-100); MEAN CORPUSCULAR HEMOGLOBIN 29.9 pg (25-34); MEAN CORPUSCULAR HGB CONC 33.6 g/dl (32-36); MEAN PLATELET VOLUME 9.7 fL (7.4-10.4); MONO % 9.9 %; NEUT % 62.9 %; PLATELET COUNT 206 K/uL (130-400); RED BLOOD COUNT 4.25 M/uL (4.2-5.4); WHITE BLOOD COUNT 7.27 K/uL (4.8-10.8)
[2017-02-12 14:50] LABS: BLOOD UREA NITROGEN 17 mg/dl (7-18); BUN/CREATININE RATIO 20.2 (10-20); CALCIUM 8.5 mg/dl (8.5-10.1); CARBON DIOXIDE 35 mmol/L (21-32); CHLORIDE 104 mmol/L (98-107); CREATININE 0.83 mg/dl (0.60-1.20); GLUCOSE 89 mg/dl (70-99); POTASSIUM 3.5 mmol/L (3.5-5.1); SODIUM 142 mmol/L (136-145)
[2017-02-17 16:35] VITALS: Ht 149.9 cm; Wt 75.9 kg
--- NOTE | 2017-02-26 12:32 | HISTORY & PHYSICAL EXAMINATION ---
DATE OF ADMISSION: 03/04/2017 FAMILY PHYISICIAN: Dr. Sabina Saleh. CHIEF COMPLAINT: Right knee pain times many years. HISTORY OF PRESENT ILLNESS: The patient is a pleasant 76-year-old female with a past medical history of osteoarthritis of her knees, benign positional vertigo, bilateral cataracts, gastroesophageal reflux disease, hyperlipidemia, hypertension, hyperthyroidism, hypokalemia, macular degeneration, osteoporosis, restless legs syndrome, and vitamin D deficiency, presents to our office with complaints of right knee pain. We have been seeing her for quite some time. She recently underwent a left total knee arthroplasty in 02/2016, she is doing well from that. Her right knee pain becomes unbearable at times. She does have some radiation down into her lower leg. Most of her pain is on the inside aspect of her knee and pain is increased with activity and weightbearing. She has decreased activities of daily living due to pain in her right knee. She has decreased range of motion due to pain and stiffness. She denies any joint effusion that she knows of. Aggravating activities include walking, going up and down stairs. She also has pain at rest and pain at night. Prior treatments include nonsteroidal anti-inflammatory drugs such as Advil. She has also taken Tylenol in the past with minimal relief. She has tried physical therapy for both of her knees approximately 2-3 years ago with no significant change. She has not tried viscosupplementation in the past. She states that this was offered to her but she did not feel that it was necessary, and with the amount of pain that she was having, she wanted to just proceed with surgery. She does use a cane when she is outside of the house. She does not use one inside of her house as she has obando and furniture to hold onto. She was recently seen by Dr. Lara. She has elected to proceed with an elective right total knee arthroplasty which is scheduled for 03/04/2017. PAST MEDICAL HISTORY: 1. Osteoarthritis, right knee. 2. Benign positional vertigo. 3. Status post left total knee arthroplasty. 4. Bilateral hearing loss. 5. Bilateral cataracts. 6. Dermatochalasis of eyelid. 7. Dry eye syndrome. 8. GERD. 9. Hyperlipidemia. 10. Hypertension. 11. Hyperthyroidism. 12. Hypokalemia. 13. Dry macular degeneration. 14. Myopia with presbyopia. 15. Osteoporosis. 16. History of pilonidal cyst. 17. Pseudophakia. 18. Restless legs syndrome. 19. Tubular adenoma. 20. Uterine fibroids. 21. Vitamin D deficiency. CURRENT MEDICATIONS: Include: 1. Cheratussin AC 10% 100 mg/5 mL as needed for cough. 2. Losartan 100 mg daily. 3. Metoprolol 50 mg daily. 4. Simvastatin 20 mg p.o. at bedtime. 5. Multivitamin daily. 6. Tylenol 500 mg 2 tabs p.o. q. 6 hours as needed for pain. 7. Aspirin 81 mg daily. 8. Vitamin D3 1000 International Units p.o. b.i.d. 9. Doxazosin 4 mg 1 tab p.o. daily. 10. Methimazole 5 mg p.o. daily. ALLERGIES: She has no known drug allergies. She states that she does get sick to her stomach with strong pain medications. PAST SURGICAL HISTORY: 1. Hysterectomy. 2. Elbow surgery. 3. Incision and drainage of a pilonidal cyst. 4. Bladder tuck. 5. Cataract surgery. 6. Bunionectomy. 7. Bilateral cataract surgery 11/2008. 8. Anterior colporrhaphy for repair of cystocele without repair of urethrocele. 9. Left total knee arthroplasty 02/20/[address] Lara. 10. Hysterectomy and oophorectomy in 11/2016 for an ovarian mass. FAMILY HISTORY: Two maternal aunts have history of breast cancer. Mother has a history of cardiovascular disease as well as diabetes and a history of heart attack. Father had a history of high blood pressure and a TIA. Her paternal grandmother has a history of glaucoma. SOCIAL HISTORY: Denies any alcohol, tobacco or drug use. She does live with her . She has 2 steps into her house which is a single-level home. She does drink caffeine on a regular basis. She does use a cane and walker in her home and outside as needed. REVIEW OF SYSTEMS: She had blood transfusion in 1982 but no issues with that that she can recall. She does have some dry skin, but otherwise no skin conditions or rashes recently. She denies any history of DVT, pulmonary embolus, or phlebitis. She denies any history of headaches, migraines, seizures, or syncopal episodes. She does have some mild blurry vision. She wears glasses which corrects that. She denies any chest pain. She did have some heart palpitations in 12/2015, which they thought was from potassium supplement. She is not on anything since she has been on metoprolol. She denies any shortness of breath. She does have some mild heartburn which she takes Tums for, which relieves her discomfort. Denies any abdominal pain. She does get some mild constipation for which she takes prune juice. Otherwise, no history of ulcers, nausea or vomiting. No recent fevers or chills. No recent weight loss or gain. She denies any issues with diarrhea, urinary frequency, burning or foul smelling urine or incontinence. PHYSICAL EXAMINATION: GENERAL: She is alert and oriented x3. She is in no acute distress. She is a well-dressed, well-nourished female, normal mood and affect. VITAL SIGNS: She is 5 feet tall, 165 pounds, BMI is 32.2. HEENT: Head is normocephalic, atraumatic. EYES: Extraocular movements intact. Pupils are equal, round and reactive to light. Sclerae are normal. EARS: Hearing is grossly normal. TMs are normal with normal light reflex. No cerumen. NOSE: Normal turbinates. No erythema or significant drainage. THROAT: Oropharynx clear. Mucous membranes are moist. Good dentition. Uvula is midline. NECK: Supple, no lymphadenopathy. Trachea is midline. No carotid bruits. LUNGS: Clear to auscultation bilaterally. No accessory muscle use. Nontender. CHEST: No rales, wheezing or rhonchi appreciated. HEART: Regular rate and rhythm. Normal S1, S2. No murmurs appreciated. ABDOMEN: Soft, nontender, nondistended. Bowel sounds heard in all 4 quadrants. EXTREMITIES: There is no distal edema. Strength is 5/5. She ambulates with a slight antalgic gait with no assistive device today in clinic. Peripheral pulses are equal bilaterally and 1+ dorsalis pedis pulse. Range of motion of her left knee is 0/125. Range of motion of her right knee is 0/3/125. No effusion. She does have medial joint line tenderness. Mild varus deformity. Painless range of motion of the hip and the ankle. Right knee is stable ligamentously bilaterally. No joint effusion bilaterally. Her left knee has healed nicely. No crepitation with range of motion. RADIOLOGY IMAGES: AP standing, lateral, and Merchant views were taken of bilateral knees and show moderate degenerative change in her right knee. Her left total knee replacement is stable and in excellent alignment. Most of her arthritis is in the medial compartment. She also has some osteophyte formation and subchondral sclerosis, again, in the medial compartment. There are also some osteoarthritic changes in the patellofemoral joint as well. ASSESSMENT: Degenerative joint disease of her right knee. PLAN: The patient will be admitted for an elective right total knee arthroplasty with Dr. Lara on 03/04/2017, which will be done at the [facility]. Risks and complications of surgery were explained to the patient and include but are not limited to infection, pain, bleeding, scarring, nerve and blood vessel damage, wound problems, weakness, stiffness, incomplete relief of symptoms, blood clots, embolisms, hardware failure, loosening, wear, need for manipulation, heart attack, stroke and were all explained to the patient. She understands and agrees and wishes to proceed with surgery. All questions were answered and informed consent was obtained. We will have her seen and cleared by her family physician prior surgery, who is Dr. Sabina Saleh. She is scheduled for preadmission testing to obtain a chest x-ray, EKG, CBC, PT, PTT, PRP, and type and screen. For DVT prophylaxis, we will use Lovenox postoperatively. She would be managed medically postoperatively in the hospital by the hospitalist service as necessary. Her discharge plans are home after surgery with her as she had previously done. All questions were answered. She knows to call with any further problems or questions. LYNN
[2017-03-04] VITALS (11 sets, daily range): BP systolic 102–155; BP diastolic 68–99; PULSE 55–66; TEMP 36.1–36.7; O2SAT 94–99
[~2017-03-04] VITALS: Ht 149.9 cm; Wt 75.9 kg
[~2017-03-04 05:11] MED LIST changes: -ACET-1256 PO; -CLC100 PO; -FAMO20TA11 PO; -LVNIS30 SQ; +METO100T44 PO; -METO1TAB69 PO; -OXYC-57 PO; -PRAM0.129 PO; -ULT50X PO; -WATER PILL PO
[2017-03-04] MEDS ORDERED: DEXAMETHASONE 4 MG TAB PO SCH (06:00)
[2017-03-04] MEDS ORDERED: OXYCODONE HCL 10 MG TABCR (OXYCONTIN) PO SCH (06:00)
[2017-03-04] MEDS ORDERED: GABAPENTIN 300 MG CAP PO SCH (06:00)
[2017-03-04] MEDS ORDERED: BUPIVACAINE LIPOSOME 266 MG, BUPIVACAINE/EPINEPHRINE INJ 50 ML, SODIUM CHLORIDE 0.9% PF... INFIL SCH ×3 (06:00)
[2017-03-04] MEDS ORDERED: LACTATED RINGER'S 1000ML 500 ML IV ONE (06:00)
[2017-03-04] MEDS ORDERED: CEFAZOLIN 1000MG/55 ML D5W 55 ML IV SCH (06:00)
[2017-03-04] MEDS ORDERED: CLONIDINE HCL 0.1 MG/24 HR TRANSDERM SYS TD SCH (06:00)
[2017-03-04] MEDS ORDERED: TRAMADOL HCL 50 MG TAB PO SCH (06:00)
[2017-03-04] MEDS ORDERED: FAMOTIDINE 20 MG TAB PO SCH (06:00)
[2017-03-04] MEDS ORDERED: LACTATED RINGER'S 1000ML 1,000 ML IV SCH (06:00)
[2017-03-04] MEDS ORDERED: ACETAMINOPHEN 500 MG TAB PO SCH (06:00)
[2017-03-04] MEDS ORDERED: LACTATED RINGER'S 1000ML IV SCH (06:00)
[2017-03-04] MEDS ORDERED: TRANEXAMIC ACID INJ 1,000 MG in SODIUM CHLORIDE 0.9% 100ML 100 ML IV SCH ×2 (06:00→16:00)
[2017-03-04] MEDS ORDERED: METOCLOPRAMIDE HCL 10 MG TAB PO SCH (06:00)
[2017-03-04] MEDS ORDERED: ROPIVACAINE 5MG/ML 30 ML 100 MG, MoRPHine SULFATE 4 MG, EpINEphrine INJ 1MG/ML AMP 0.2 ... INFIL SCH ×4 (06:00)
[2017-03-04] MEDS ORDERED: CeleBREX 200 MG CAP PO SCH (06:00)
[2017-03-04] MEDS ORDERED: MIDAZOLAM HCL 1 MG/ML 2ML VIAL ONE (06:27)
[2017-03-04] MEDS ORDERED: PROPOFOL IV EMULSION 10 MG/ML 20 ML VIAL IV ONE ×2 (06:27→07:42)
[2017-03-04] MEDS ORDERED: BUPIVACAINE 0.25% 30 ML VIAL ONE (06:33)
[2017-03-04] MEDS ORDERED: BUPIVACAINE 0.5 % 5 MG/1 ML PF 10ML VIAL ONE (06:33)
[2017-03-04] MEDS ORDERED: FENTANYL CITRATE INJ 50 MCG/1 ML 2 ML VIAL ONE ×2 (06:40→07:39)
[2017-03-04] MEDS ORDERED: BUPIVACAINE/EPINEPHRINE 0.25% 1:200,000 30 ML VIAL ONE (06:40)
--- NOTE | 2017-03-04 06:40 | History & Physical Bridge Note ---
H&P Re-Evaluation Bridge Note: I have examined the patient, reviewed the History & Physical and in the interval since the performance of the History & Physical I have noted the following changes of clinical significance: No changes noted
[2017-03-04] MEDS ORDERED: SODIUM CHLORIDE 0.9% PF 50 ML VIAL ONE (06:41)
[2017-03-04] MEDS ORDERED: BACITRACIN 50000 UNIT VIAL ONE (06:41)
[2017-03-04] MEDS ORDERED: BUPIVACAINE LIPOSOME 1/3% 266 MG/20 ML VIAL INFIL ONE (06:41)
[2017-03-04] MEDS ORDERED: SCOPOLAMINE 1.5 MG TDSY TD ONE (06:47)
[2017-03-04] MEDS ORDERED: POVIDONE-IODINE OP SOLN 30 ML BTL ONE (07:04)
[2017-03-04] MEDS ORDERED: ORTHO JOINT ANESTHETIC ONE (07:07)
[2017-03-04] MEDS ORDERED: ONDANSETRON INJ 2 MG/ML 2 ML VIAL ONE (07:42)
[2017-03-04] MEDS ORDERED: DiphenhydrAMINE HCL 50 MG/ML VIAL ONE (07:42)
[2017-03-04] MEDS ORDERED: DEXAMETHASONE SOD INJ 4 MG/ML VIAL ONE (07:42)
[2017-03-04] MEDS ORDERED: SUCCINYLCHOLINE CHLORIDE 20 MG/ML 10 ML VIAL IV ONE (07:42)
[2017-03-04] MEDS ORDERED: LIDOCAINE HCL 2% 2 ML VIAL (20MG/ML) ONE (07:42)
[2017-03-04] MEDS ORDERED: METOCLOPRAMIDE HCL INJ 5 MG/ML 2 ML VIAL ONE (07:42)
[2017-03-04] MEDS ORDERED: ROCURONIUM BROMIDE 10 MG/ML 5 ML VIAL ONE (07:42)
[2017-03-04] MEDS ORDERED: EpHEDrine SULFATE 50MG/5ML SYR ONE (07:42)
[2017-03-04] MEDS ORDERED: HYDROmorphone INJ 2 MG/ML SYR/VIAL ONE (08:06)
[2017-03-04] MEDS ORDERED: GLYCOPYRROLATE INJ 0.2 MG/ML VIAL ONE (08:57)
[2017-03-04] MEDS ORDERED: NEOSTIGMINE METHYLSULFATE 5 MG/5 ML SYR ONE (08:57)
--- NOTE | 2017-03-04 09:21 | [facility] Post Operative Brief Note ---
Immediate Operative Summary Operative Date Mar 04, 2017. Pre-Operative Diagnosis Degenerative joint disease, right knee Post-Operative Diagnosis Same as preop Procedure(s) Performed Right total knee arthroplasty Surgeon Dr. Lara Stem Maker Surgeon(s) Halile Hernández PA-C Estimated Blood Loss 20 cc Findings medial OA Specimens A: right knee bone and tissue Drains 0 Anesthesia general with block Complication(s) None Disposition Recovery Room / PACU
[2017-03-04] MEDS ORDERED: MoRPHine SULFATE 2 MG/ML CARP IV PRN (09:30)
[2017-03-04] MEDS ORDERED: ONDANSETRON INJ 2 MG/ML 2 ML VIAL IV PRN ×2 (09:30→10:00)
[2017-03-04] MEDS ORDERED: BISACODYL 10 MG SUPP PR PRN (09:30)
[2017-03-04] MEDS ORDERED: ACETAMINOPHEN 325 MG TAB PO PRN (09:30)
[2017-03-04] MEDS ORDERED: ALUMINUM/MAGNESIUM/SIMETH (MAALOX MAX) 30 ML UDC PO PRN (09:30)
[2017-03-04] MEDS ORDERED: SOD PHOSPHATE/SOD BIPHOSPHATE ENEMA 132 ML BTL PR PRN (09:30)
[2017-03-04] MEDS ORDERED: MAGNESIUM HYDROXIDE SUSP 30 ML UDC PO PRN (09:30)
--- NOTE | 2017-03-04 09:37 | [facility] Operative Report ---
Operative Report Operative Date Mar 04, 2017. Pre-Operative Diagnosis Degenerative joint disease, right knee Post-Operative Diagnosis DJD right knee Procedure(s) Performed Right total knee arthroplasty Surgeon Dr. Lara Job Coach/Job Developer Surgeon(s) Hallie Hernández PA-C Estimated Blood Loss 20 cc Findings DJD right knee Specimens A: right knee bone and tissue Drains 0 Anesthesia general with block Complication(s) None Disposition Recovery Room / PACU Indications Patient is a 76 year old female with progressively worsening right knee pain, failed conservative treatment. Surgical intervention recommended, she agreed to proceed. X-rays confirmed end state degenerative joint disease right knee, especially in the medial compartment. Risks/complications discussed, informed consent obtained. Description of Procedure Patient was taken to the recovery room, placed under general anesthesia with peripheral nerve block. She was given IV Ancef 2gm for surgical prophylaxis. Time out performed, prepped and draped in routine sterile fashion. I was present the entire case, please see Dr. Lara's operative report for further detail. Patient was awakened and taken to the recovery room in stable condition. I attest to the content of the Intraoperative Record and any orders documented therein. Any exceptions are noted below.
[2017-03-04] MEDS ORDERED: EpHEDrine SULFATE INJ 50 MG/ML AMP IV PRN (10:00)
[2017-03-04] MEDS ORDERED: PROMETHAZINE HCL INJ 12.5 MG in SODIUM CHLORIDE 0.9% 50ML 50 ML IV PRN (10:00)
[2017-03-04] MEDS ORDERED: HYDROmorphone INJ 0.5 MG/0.5 ML SYR IV PRN (10:00)
[2017-03-04] MEDS ORDERED: ATROPINE SULFATE 0.1 MG/ML 5ML SYR IV PRN (10:00)
[2017-03-04] MEDS ORDERED: LABETALOL HCL IV 5 MG/ML 20ML IV PRN (10:00)
[2017-03-04] MEDS ORDERED: NALOXONE HCL 0.4 MG/1 ML VIAL/CARP IV PRN (10:00)
--- NOTE | 2017-03-04 10:07 | OPERATIVE REPORT ---
DATE OF OPERATION: 03/04/2017 PREOPERATIVE DIAGNOSIS: Right knee arthritis. POSTOPERATIVE DIAGNOSIS: Same. PROCEDURE: Cemented right total knee arthroplasty. SURGEON: Dr. Joe Lara. DIRECTOR OF CAMPUS RECREATION: Tammy Hernández. No resident or fellow available. ANESTHESIA: General with a femoral nerve block. INDICATIONS OF PROCEDURE: The patient is a 76-year-old female who is status post a successful left knee arthroplasty 1 year ago. She has failed conservative management and has symptomatic arthritis of her right knee refractory to nonsurgical methods of management, impacting her activities of daily living and she wishes to have an operative procedure done. PROCEDURE IN DETAIL: Informed consent was obtained. The patient was identified as Suzette Quarles. She identified the operative site as the right knee. I marked it with my initials. A preop surgical timeout was performed. A preop dose of IV antibiotics was given. She was taken to the operating room and positioned supine on the operating room table. The anesthetic was administered. A tourniquet was applied to the right thigh. The examination showed full extension and flexion to 130. No pathological laxity or effusion. Minimal varus alignment. The entire right lower extremity was prepped and draped in the usual sterile fashion. She received a preop dose of tranexamic acid. A bump was placed under her right hip. A padded post was used under the leg for positioning the foot. DVT prophylaxis intraoperatively with foot pumps and postoperatively with Coumadin. The limb was exsanguinated with the Esmarch and tourniquet inflated to 225 mmHg. A midline longitudinal incision was made about 20 cm in length. A medial skin flap was elevated followed by a medial parapatellar arthrotomy. The synovial reflection in the lateral gutter was divided. The retropatellar fat pad was resected. A medial release was performed back around to the semimembranosus tendon. The soft tissue on the anterior aspect of the distal femur was removed. The medial meniscus was deficient and there was grade 4 change person an area about the size of a nickel to a quarter, anterior medial tibia and central femur. There was an area about the size of a dime, grade 4 chondrosis of the medial patella. The lateral compartment was normal in appearance. The cruciates were intact. There was otherwise grade 2 and 3 chondrosis in the patellofemoral articulation, particularly in the trochlea, medial condyle and medial tibial plateau. Marginal osteophytes were resected. The cruciates were removed. The knee was subluxated and the meniscal remnants were removed. [employer] Scout hole was drilled into the tibia just anterior to the tibial spines. Intramedullary alignment terri was inserted. The guide was applied and set to take 10 off of the lateral side corresponding to 4 medially. This was pinned into place and the alignment was checked with an extramedullary alignment terri. [place] and mechanical axis were acceptable. The tibial cut was then made and sized to 2.5. Posteromedial marginal osteophytes were removed. A aircraft pilot hole was drilled in the distal femur followed by insertion of the cutting guide, set to resect 6 degrees right knee valgus, 12-mm thick cut. This cut was made in the extension gap with symmetric 10. The transepicondylar axis and [place]ites[place] lines were marked out. The sizing guide was applied and sized to a 3. The external rotation drill holes were made, which matched the epicondylar axis. The size 3 anterior down cutting block was applied and the appropriate cuts were then made, protecting the collateral ligaments. The box cutting guide was aligned, lateralized and the box was cut. The flexion gap was asymmetric 10, perhaps 1-2 mm of laxity laterally. The trial femur was inserted. The tibia was applied and the keel was drilled and punched. The trial poly was inserted with the tibial tray, which showed good stability in full extension, trace MCL and LCL laxity in mid position and trace LCL laxity at 90 degrees flexion. Attention was turned to the patella, which measured 20 mm in thickness. The guide was set to preserve 13 mm of bone. This cut was made. The residual patellar thickness was 12. The 35-mm paddle was aligned and the lug holes were drilled. The alignment was done with the knee in slight flexion. The patella was distalized and lateralized. The patellar tracking was fine with the no hands technique. The trial components were removed from the knee. A mixture of morphine, epinephrine and ropivacaine were injected 10 mL each into the posterior capsule, medial and lateral gutters and skin and subcutaneous tissues for total volume of 30 mL. The bony surfaces were meticulously prepared with pulse lavage. The canals were plugged. Two bags of Simplex P were mixed and while in a doughy state, the femur, tibia and patella were cemented in place and held in full extension with patellar clamp and trial poly until the cement hardened. The tourniquet was let down at 75 minutes of inflation. There was minimal bleeding, which was controlled with electrocautery. Patellar tracking was fine with the no hands technique. Patellar thickness was 20 mm. Extraneous cement was removed. Betadine lavage for 3 minutes was performed while the cement was hardening. The back of the knee was inspected for cement and there were several small flakes medially. It was noted that there was a small avulsion at the insertion of the PCL likely due to the blunt Hohmann retractor. This was about 1 cm x 0.5 cm, was structurally insignificant. It was left in situ. The back of the knee was irrigated, trialing was again performed and then a final 10-mm thick polyethylene insert was applied. Composite flexion with the knee extensor mechanism closed was 120 degrees. The extensor mechanism was closed with interrupted #2 FiberWire above the equator of the patellar, running #1 Vicryl below. The skin was closed in layers with 0 and 2-0 Vicryl and cecile on the skin. A full length Evangelist wrap and soft sterile dressing was applied. The patient was awakened from anesthesia without difficulty and taken to recovery in stable condition. There were no complications. Resected bone was sent for specimen. Counts were correct at the end of case. Blood loss was 20 mL. At the conclusion of the operation, I spoke to the patient's family and informed them of my findings. Postoperative instructions were given. She will be started on Coumadin postoperatively and will be rehabilitated according to our standard total joint protocol. She will receive Decadron and tranexamic acid. No Exparel was used. The anticoagulation plan is to use Lovenox 30 mg b.i.d. for at least 4 weeks rather than Coumadin. Components inserted were the J\T\J PFC sigma rotating platform knee, a 35-mm 3-peg oval dome patella, a size 3 10-mm thick rotating platform polyethylene insert, a size 2.5 healed mobile bearing tibial tray and a posterior stabilized size 3 right femoral component. I attest to the content of the Intraoperative Record and any orders documented therein. Any exceptio ns are noted below.
--- NOTE | 2017-03-04 10:12 | DIAGNOSTIC IMAGING REPORT ---
TWO VIEWS RIGHT KNEE CLINICAL HISTORY: Postoperative examination. FINDINGS: AP and crosstable lateral portable views of the right knee are obtained. A right knee arthroplasty is in near anatomic alignment. There has been undersurface remodeling of the patella. No acute fracture is seen. There are expected postoperative changes around the knee including skin clips soft tissue edema, and subcutaneous gas. IMPRESSION: Expected postoperative changes status post right knee arthroplasty. No acute fracture is seen. Electronically signed by: Oswald Cunningham M.D. 03/04/2017 10:09 AM Dictated Date/Time: 03/04/2017 10:03 AM
--- NOTE | 2017-03-04 10:21 | Anesthesiology Progress Note ---
Anesthesia Post Op Note Date & Time Mar 04, 2017 at 10:20 Vital Signs Pain Intensity: 2 Vital Signs Past 12 Hours Date Time Temp Pulse Resp B/P Pulse Ox O2 Delivery O2 Flow Rate FiO2 03/04/17 09:41 112/72 03/04/17 09:40 66 16 03/04/17 09:40 66 16 97 03/04/17 09:35 72 12 03/04/17 09:35 72 12 119/75 97 03/04/17 09:30 72 9 115/74 97 03/04/17 09:30 72 9 03/04/17 09:25 75 18 121/73 96 03/04/17 09:25 36.1 77 16 121/73 96 Mask 10 03/04/17 09:25 76 18 03/04/17 06:07 95 Room Air 03/04/17 06:02 36.7 64 18 155/99 Notes Mental Status: alert / awake / arousable, participated in evaluation Pt Amnestic to Procedure: Yes Nausea / Vomiting: adequately controlled Pain: adequately controlled Airway Patency, RR, SpO2: stable & adequate BP & HR: stable & adequate Hydration State: stable & adequate Anesthetic Complications: no major complications apparent
[2017-03-04] MEDS ORDERED: HydrALAZINE HCL 20 MG/ML VIAL IV. PRN (12:00)
--- NOTE | 2017-03-04 12:06 | Medical Consult ---
Consultation Date of Consultation: Mar 04, 2017. Attending Physician: Joe Lara M.D. Reason for Consultation: Medical management History of Present Illness This is a 76 y/o female with a history of hypertension, hyperlipidemia, hyperthyroidism, and restless leg syndrome who presents s/p right total knee arthroplasty with Dr. Lara on 03/04 for medical management. The patient reports feeling well postoperatively but is very fatigued. She denies any pain currently. She has not eaten, passed gas or had a bowel movement yet. She. She was able to void without difficulties postoperatively. The patient denies fevers, chills, sweats, chest pain, palpitations, claudication, cough, wheezing , shortness of breath, nausea, vomiting, abdominal pain, dysuria, hematuria, urinary retention, paralysis, weakness, numbness and tingling. Past Medical/Surgical History Medical Problems: (1) Breast mass Status: Acute (2) Hypokalemia Status: Acute (3) Intractable abdominal pain Status: Acute (4) Nausea & vomiting Status: Acute (5) Pelvic mass Status: Acute Family History Breast cancer Coronary artery disease Diabetes mellitus Myocardial infarction Stroke Social History Smoking Status: Never Smoker Smokeless Tobacco Use: No Alcohol Use: none Drug Use: none Marital Status: Housing Status: lives with significant other Occupation Status: retired Allergies Coded Allergies: Latex1 -Allergic Contact Dermititis (Verified Allergy, Unknown, RASH, 03/04) NO KNOWN DRUG ALLERGIES (Verified Allergy, Unknown, NKDA, 03/04/17) Current Inpatient Medications Current Inpatient Medications Medications (Trade) Dose Ordered Sig/Vasile Route Start Time Stop Time Status Last Admin Dose Admin Ropivacaine 100 mg/Morphine Sulfate 4 mg/ Epinephrine HCl 0.2 mg/Sodium Chloride 10 ml/ Syringe 30.4667 ml @ 0 mls/hr PREOP INFIL 03/04/17 06:00 03/04/17 17:00 03/04/17 08:41 1 MLS/HR Lactated Ringer's 1,000 ml @ 60 mls/hr [id number] IV 03/04/17 06:00 03/04/17 22:39 Cefazolin Sodium (Ancef 1000mg/55 ml D5W) 55 ml @ 100 mls/hr PREOP IV 03/04/17 06:00 03/04/17 18:00 Acetaminophen (Tylenol Tab) 1,000 mg PREOP PO 03/04/17 06:00 03/04/17 18:00 03/04/17 06:25 1,000 MG Celecoxib (CeleBREX CAP) 200 mg PREOP PO 03/04/17 06:00 03/04/17 18:00 03/04/17 06:25 200 MG Dexamethasone (Decadron Tab) 8 mg PREOP PO 03/04/17 06:00 03/04/17 18:00 03/04/17 06:26 8 MG Famotidine (Pepcid Tab) 20 mg PREOP PO 03/04/17 06:00 03/04/17 18:00 03/04/17 06:27 20 MG Gabapentin (Neurontin Cap) 300 mg PREOP PO 03/04/17 06:00 03/04/17 18:00 03/04/17 06:24 300 MG Metoclopramide HCl (Reglan Tab) 10 mg PREOP PO 03/04/17 06:00 03/04/17 18:00 03/04/17 06:27 10 MG Oxycodone HCl (Oxycontin Tab) 10 mg PREOP PO 03/04/17 06:00 03/04/17 18:00 03/04/17 06:27 10 MG Clonidine HCl ([id number] 0.1mg/24hr Patch) 1 patch PREOP TD 03/04/17 06:00 03/04/17 18:00 03/04/17 06:29 1 PATCH Miscellaneous 1 ea 1 ea Q72H N/A 03/06/17 06:00 03/06/17 06:01 Tranexamic Acid/ Sodium Chloride (Cyklokapron Inj/ Nss 100ml) 110 ml @ 660 mls/hr TODAY@0600 IV 03/04/17 06:00 03/04/17 18:00 03/04/17 06:40 660 MLS/HR Tramadol HCl 50 mg 50 mg PREOP PO 03/04/17 06:00 03/04/17 18:00 03/04/17 06:26 50 MG Lactated Ringer's (Lr 1000ml) 1,000 ml @ 15 mls/hr Q24H IV 03/04/17 06:00 03/05/17 05:59 Enoxaparin Sodium 30 mg 30 mg Q12H SQ 03/05/17 09:00 04/02/17 08:59 UNV Potassium Chloride/Dextrose/ Sod Cl 1,000 ml @ 100 mls/hr Q10H IV 03/04/17 12:00 03/05/17 11:59 Cefazolin Sodium/ Dextrose (Ancef Iv/D5 50ml) 55 ml @ 100 mls/hr Q8H IV 03/04/17 18:00 03/05/17 02:32 Ketorolac Tromethamine (Toradol Inj) 15 mg Q6H IV. 03/04/17 09:30 03/05/17 09:29 UNV Celecoxib (CeleBREX CAP) 200 mg BID PO 03/04/17 21:00 04/03/17 20:59 UNV Oxycodone HCl (Roxicodone Immediate Rel Tab) 1 TABLET FOR PAIN RATING... Q4H PRN PO 03/04/17 09:30 03/18/17 09:29 Morphine Sulfate (MoRPHine SULFATE INJ) 2mg for pain 1-5 4mg ... Q2H PRN IV 03/04/17 09:30 03/18/17 09:29 UNV Acetaminophen (Tylenol Tab) 650 mg Q6H PRN PO 03/04/17 09:30 04/03/17 09:29 Magnesium Hydroxide (Milk Of Magnesia Susp) 30 ml Q6H PRN PO 03/04/17 09:30 04/03/17 09:29 Bisacodyl (Dulcolax Supp) 10 mg DAILY PRN LA 03/04/17 09:30 04/03/17 09:29 Sodium Biphosphate/ Sodium Phosphate (Fleet Enema) 132 ml DAILY PRN LA 03/04/17 09:30 04/03/17 09:29 Docusate Sodium (coLACE CAP) 100 mg BID PO 03/04/17 21:00 04/03/17 20:59 Al Hydrox/Mg Hydrox/Simethicone (Maalox Max Susp) 15 ml Q4H PRN PO 03/04/17 09:30 04/03/17 09:29 Multivitamins (Multivitamin Tab) 1 tab QAM PO 03/05/17 09:00 04/04/17 08:59 Ondansetron HCl (Zofran Inj) 4 mg Q6H PRN IV 03/04/17 09:30 04/03/17 09:29 Pantoprazole Sodium (Protonix Tab) 40 mg QAM PO 03/05/17 09:00 04/04/17 08:59 Tramadol HCl 1 tablet for pain rating... Q4H PRN PO 03/04/17 09:30 04/03/17 09:29 Tranexamic Acid/ Sodium Chloride (Cyklokapron Inj/ Nss 100ml) 110 ml @ 660 mls/hr Q6H IV 03/04/17 09:30 03/04/17 09:39 UNV Dexamethasone (Decadron Tab) 8 mg 0730 PO 03/05/17 07:30 03/05/17 07:31 Cholecalciferol (Vitamin D Tab) 2,000 inter.unit BID PO 03/04/17 21:00 04/03/17 20:59 Doxazosin Mesylate (Cardura Tab) 4 mg QPM PO 03/04/17 21:00 04/03/17 20:59 Hydrochlorothiazide (Hydrochlorothiazide Tab) 25 mg QAM PO 03/05/17 09:00 04/04/17 08:59 Losartan Potassium (coZAAR TAB) 100 mg QAM PO 03/05/17 09:00 04/04/17 08:59 Methimazole (Methimazole Tab) 5 mg QAM PO 03/05/17 09:00 04/04/17 08:59 Metoprolol Succinate (Toprol Xl Tab) 100 mg DAILY PO 03/05/17 09:00 04/04/17 08:59 Simvastatin (Zocor Tab) 20 mg HS PO 03/04/17 21:00 04/03/17 20:59 Hydromorphone HCl (Dilaudid Inj) 0.25 mg Q5M PRN IV 03/04/17 10:00 03/04/17 15:00 Naloxone HCl (Narcan Inj) 0.2 mg Q2M PRN IV 03/04/17 10:00 03/04/17 15:00 Ondansetron HCl 4 mg 4 mg ONE PRN IV 03/04/17 10:00 03/04/17 15:00 Promethazine HCl/ Sodium Chloride (Phenergan Inj/ Nss 50ml) 50.5 ml @ 202 mls/hr ONE PRN IV 03/04/17 10:00 4/25/17 15:00 Labetalol HCl (Normodyne IV) 5 mg Q5M PRN IV 03/04/17 10:00 03/04/17 15:00 Ephedrine Sulfate (EpHEDrine SULFATE INJ) 5 mg Q5M PRN IV 03/04/17 10:00 03/04/17 15:00 Atropine Sulfate (Atropine Sulfate 0.1MG/Ml Inj) 0.5 mg Q1M PRN IV 03/04/17 10:00 03/04/17 15:00 Review of Systems See HPI for pertinent positives and negatives. All other systems reviewed and negative. Physical Exam Date Time Temp Pulse Resp B/P Pulse Ox O2 Delivery O2 Flow Rate FiO2 03/04/17 11:50 36.2 57 17 104/71 99 Nasal Cannula 2.0 03/04/17 11:19 36.2 65 16 102/68 96 Nasal Cannula 2.0 03/04/17 10:50 Nasal Cannula 2.0 03/04/17 10:50 36.1 66 16 118/78 96 Nasal Cannula 2.0 03/04/17 10:50 Nasal Cannula 2.0 03/04/17 10:21 36.6 62 16 115/66 95 Nasal Cannula 2 03/04/17 10:17 61 16 94 03/04/17 10:17 61 16 03/04/17 10:15 105/64 03/04/17 10:12 58 19 95 03/04/17 10:12 58 19 03/04/17 10:10 111/67 03/04/17 10:07 61 18 03/04/17 10:07 61 18 96 03/04/17 10:05 99/69 03/04/17 10:02 60 17 03/04/17 10:02 59 17 94 03/04/17 10:00 108/68 03/04/17 09:57 63 11 03/04/17 09:57 63 11 97 03/04/17 09:55 119/84 03/04/17 09:55 115/67 03/04/17 09:52 59 17 98 03/04/17 09:52 59 17 03/04/17 09:50 119/84 03/04/17 09:47 67 18 97 03/04/17 09:47 65 18 03/04/17 09:45 116/66 03/04/17 09:42 69 16 03/04/17 09:42 69 16 96 03/04/17 09:41 112/72 03/04/17 09:40 66 16 03/04/17 09:40 66 16 97 03/04/17 09:35 72 12 03/04/17 09:35 72 12 119/75 97 03/04/17 09:30 72 9 115/74 97 03/04/17 09:30 72 9 03/04/17 09:25 75 18 121/73 96 03/04/17 09:25 36.1 77 16 121/73 96 Mask 10 03/04/17 09:25 76 18 03/04/17 06:07 95 Room Air 03/04/17 06:02 36.7 64 18 155/99 General Appearance: WD/WN, no apparent distress, + obese Head: normocephalic, atraumatic Eyes: normal inspection, PERRL, EOMI ENT: normal ENT inspection, hearing grossly normal, pharynx normal Neck: supple, no JVD, trachea midline Respiratory/Chest: lungs clear, normal breath sounds, no respiratory distress Cardiovascular: regular rate, rhythm, no gallop, no murmur Abdomen/GI: normal bowel sounds, non tender, soft Extremities/Musculoskelatal: normal inspection, no calf tenderness, no pedal edema Neurologic/Psych: alert, normal mood/affect, oriented x 3, + pertinent finding (drowsy) Skin: normal color, warm/dry, no rash Laboratory Results Last 24 Hours Test 03/04/17 11:48 Assessment & Plan 76 y/o female with a history of hypertension, hyperlipidemia, hyperthyroidism, and restless leg syndrome who presents s/p right total knee arthroplasty with Dr. Lara on 03/04 for medical management. -Pain management, DVT prophylaxis, and PT/OT as per primary team -POD #0 HTN--stable -Hold hydrochlorothiazide while on IVF -Hold losartan until renal function checked/stable -Continue doxazosin 4 mg PO qd and metoprolol tartrate 100 mg PO qd -Cover with hydralazine 10 mg IV q6h prn SBP >180 HLD -Continue simvastatin 20 mg PO qd Hyperthyroidism -Continue methimazole 5 mg PO qd Restless leg syndrome -Continue Mirapex 0.25 mg PO qhs Code Status -Level I, FULL RESUSCITATION STATUS Thank you for this consultation. We will continue to follow. This chart was completed in part utilizing [employer] Speech Voice Recognition software. Attempts were made to minimize the grammatical errors, random word insertions, pronoun errors and incomplete sentences. Any formal questions or concerns about the content, text or information contained within the body of this dictation should be directly addressed to the provider for clarification. Attending Consult Note & Attestation: Pt seen/examined, chart reviewed, and care plan d/w ADAIR Madrigal. I agree w/ the johnston components of her consult documentation. 76yo female with HTN & hyperthyroidism who underwent elective right TKR earlier today by Dr. Lara. During my assessment she was sleeping. She only woke up with a sternal rub. Once awake she was quite groggy. She did affirm that her has told her that she snores at home. Denied any pain in any location. She quickly fell back asleep. PMH, PSH, allergies, meds, sochx, famhx, ros - reviewed VSS o2 sats normal on O2 NC gen - sleeping, difficult to arouse face - no droop neck - no JVD mouth - dry MM heart - RRR, s1, s2 lungs - CTA b/l abd - soft, mildly distended, BS+, NT ext - no edema musculo - right knee in large dressing; ice pack in place preop labs - noted to have high HCO3 of 35 A/P: 1. s/p right TKR 2. HTN 3. hyperthyroidism 4. lethargy post-op -- r/o hypercarbia (HCO3 on preop labs would suggest chronic CO2 retention) check VBG now other labs - cbc, bmp - pending (ordered by primary team) agree with recommendations made by Ms. Rohan Huerta MD
[2017-03-04] MEDS ORDERED: MoRPHine SULFATE 4 MG/ML 1 ML CARP\\VIAL IV PRN (12:15)
[2017-03-04 13:00] LABS: BASO % 0.1 %; BASO ABS # 0.01 K/uL (0-0.2); COMPLETE YES; EOS % 0.2 %; HEMATOCRIT 36.8 % (37-47); IG% 0.2 %; LYMPH % 7.5 %; LYMPH ABS # 0.66 K/uL (1.2-3.4); MEAN CELL VOLUME 89.8 fL (80-100); MEAN CORPUSCULAR HGB CONC 33.4 g/dl (32-36); MEAN PLATELET VOLUME 9.1 fL (7.4-10.4); MONO % 0.9 %; NEUT % 91.1 %; PLATELET COUNT 172 K/uL (130-400); WHITE BLOOD COUNT 8.76 K/uL (4.8-10.8)
[2017-03-04 13:27] LABS: CALCIUM 8.5 mg/dl (8.5-10.1)
[2017-03-04 13:34] LABS: BUN/CREATININE RATIO 16.5 (10-20); CREATININE 0.79 mg/dl (0.60-1.20); POTASSIUM 3.5 mmol/L (3.5-5.1)
[2017-03-04 13:44] LABS: VEN BLD GAS O2 SATURATION 74.3 %
[2017-03-04] MEDS: D5W AND 1/2NSS + 20MEQ KCL 1,000 ML IV SCH ×2 (13:56→22:13)
[2017-03-04] MEDS: KETOROLAC TROMETHAMINE 15 MG/ML VIAL IV. SCH ×2 (13:57→19:48)
--- NOTE | 2017-03-04 16:46 | Orthopedic Progress Note ---
Orthopedic Progress Note Date of Service Mar 04, 2017. Subjective Post OP Day: POD 0 Denies: SOB, calf pain, chest pain, complaints, light headedness, nausea / vomiting Additional Notes: Pain controlled. States still feels a little "groggy", but much better than this morning. Wearing Bi-pap. Denies pain, ate lunch today. Objective calves soft nontender, N/V intact, capillary refill less than 2 sec., dressing C /D/I, A&O x3, toes mobile Distal pulses 1+, able to do ankle pumps right lower extremity, awake and alert. Date Time Temp Pulse Resp B/P Pulse Ox O2 Delivery O2 Flow Rate FiO2 03/04/17 15:18 36.2 56 16 116/75 99 Room Air 03/04/17 13:51 55 19 114/82 99 Nasal Cannula 2.0 03/04/17 12:50 55 18 117/79 99 Nasal Cannula 2.0 03/04/17 11:50 36.2 57 17 104/71 99 Nasal Cannula 2.0 03/04/17 11:19 36.2 65 16 102/68 96 Nasal Cannula 2.0 03/04/17 10:50 Nasal Cannula 2.0 03/04/17 10:50 36.1 66 16 118/78 96 Nasal Cannula 2.0 03/04/17 10:50 Nasal Cannula 2.0 03/04/17 10:21 36.6 62 16 115/66 95 Nasal Cannula 2 03/04/17 10:17 61 16 94 03/04/17 10:17 61 16 03/04/17 10:15 105/64 03/04/17 10:12 58 19 95 03/04/17 10:12 58 19 03/04/17 10:10 111/67 03/04/17 10:07 61 18 03/04/17 10:07 61 18 96 03/04/17 10:05 99/69 03/04/17 10:02 60 17 03/04/17 10:02 59 17 94 03/04/17 10:00 108/68 03/04/17 09:57 63 11 03/04/17 09:57 63 11 97 03/04/17 09:55 119/84 03/04/17 09:55 115/67 03/04/17 09:52 59 17 98 03/04/17 09:52 59 17 4/25/17 09:50 119/84 03/04/17 09:47 67 18 97 03/04/17 09:47 65 18 03/04/17 09:45 116/66 03/04/17 09:42 69 16 03/04/17 09:42 69 16 96 03/04/17 09:41 112/72 03/04/17 09:40 66 16 03/04/17 09:40 66 16 97 03/04/17 09:35 72 12 03/04/17 09:35 72 12 119/75 97 03/04/17 09:30 72 9 115/74 97 03/04/17 09:30 72 9 03/04/17 09:25 75 18 121/73 96 03/04/17 09:25 36.1 77 16 121/73 96 Mask 10 03/04/17 09:25 76 18 03/04/17 06:07 95 Room Air 03/04/17 06:02 36.7 64 18 155/99 Laboratory Results 24 Hours: Test 03/04/17 12:39 White Blood Count 8.76 K/uL Red Blood Count 4.10 M/uL Hemoglobin 12.3 g/dL Hematocrit 36.8 % Mean Corpuscular Volume 89.8 fL Mean Corpuscular Hemoglobin 30.0 pg Mean Corpuscular Hemoglobin Concent 33.4 g/dl Platelet Count 172 K/uL Mean Platelet Volume 9.1 fL Neutrophils (%) (Auto) 91.1 % Lymphocytes (%) (Auto) 7.5 % Monocytes (%) (Auto) 0.9 % Eosinophils (%) (Auto) 0.2 % Basophils (%) (Auto) 0.1 % Neutrophils # (Auto) 7.97 K/uL Lymphocytes # (Auto) 0.66 K/uL Monocytes # (Auto) 0.08 K/uL Eosinophils # (Auto) 0.02 K/uL Basophils # (Auto) 0.01 K/uL Assessment & Plan Assessment: POD 0 - Right TKA Plan: OOB/PT - WBAT RLE with immobilizer/walker Ice and elevate right lower extremity as needed for pain/swelling. Appreciate medicine input/assistance Continue CPAP as ordered Pain medication as prescribed. Regular diet as ordered. Teds/Foot pumps and Lovenox ordered to start in AM 30mg BID x 4 weeks. Labs noted, repeat in AM Xrays reviewed - stable prosthesis. Will discuss findings with Dr. Lara. Discussed plan with nursing. Recheck in AM.
[2017-03-04] MEDS: CEFAZOLIN IV 1,000 MG in DEXTROSE 5% 50ML 50 ML IV SCH (19:39)
[2017-03-04] MEDS: CHOLECALCIFEROL 1000 INTER.UNIT TAB PO SCH (21:08)
[2017-03-04] MEDS: DOXAZosin MESYLATE TAB 4 MG TAB PO SCH (21:08)
[2017-03-04] MEDS: DOCUSATE SODIUM 100 MG CAP PO SCH (21:09)
[2017-03-04] MEDS: SIMVASTATIN 20 MG TAB PO SCH (21:09)
[2017-03-04] MEDS: PRAMIPEXOLE DIHYDROCHLORIDE 0.5 MG TAB PO SCH (21:09)
[2017-03-05] VITALS (7 sets, daily range): BP systolic 100–137; BP diastolic 64–87; PULSE 59–66; TEMP 36.4–36.7; O2SAT 86–97
[2017-03-05] MEDS: CEFAZOLIN IV 1,000 MG in DEXTROSE 5% 50ML 50 ML IV SCH (01:36)
[2017-03-05] MEDS: KETOROLAC TROMETHAMINE 15 MG/ML VIAL IV. SCH ×2 (01:36→08:28)
[2017-03-05 05:33] LABS: MEAN CELL VOLUME 89.6 fL (80-100); MEAN CORPUSCULAR HEMOGLOBIN 29.2 pg (25-34); MEAN CORPUSCULAR HGB CONC 32.6 g/dl (32-36); MEAN PLATELET VOLUME 9.4 fL (7.4-10.4); PLATELET COUNT 175 K/uL (130-400); RED BLOOD COUNT 3.46 M/uL (4.2-5.4); WHITE BLOOD COUNT 11.54 K/uL (4.8-10.8)
[2017-03-05 06:38] LABS: BUN/CREATININE RATIO 16.4 (10-20); CALCIUM 7.5 mg/dl (8.5-10.1); CREATININE 0.92 mg/dl (0.60-1.20); POTASSIUM 4.2 mmol/L (3.5-5.1)
[2017-03-05] MEDS ORDERED: DEXAMETHASONE 4 MG TAB PO SCH (07:30)
[2017-03-05] MEDS: CHOLECALCIFEROL 1000 INTER.UNIT TAB PO SCH ×2 (08:25→20:54)
[2017-03-05] MEDS: TRAMADOL HCL 50 MG TAB PO PRN (08:25)
[2017-03-05] MEDS: D5W AND 1/2NSS + 20MEQ KCL 1,000 ML IV SCH (08:25)
[2017-03-05] MEDS: DOCUSATE SODIUM 100 MG CAP PO SCH ×2 (08:26→20:54)
[2017-03-05] MEDS: MULTIVITAMIN TAB PO SCH (08:26)
[2017-03-05] MEDS: METHIMAZOLE 5 MG TAB PO SCH (08:27)
[2017-03-05] MEDS: METOPROLOL SUCC 50MG EXT REL TAB PO SCH (08:27)
[2017-03-05] MEDS: PANTOprazole SOD 40 MG TAB PO SCH (08:28)
[2017-03-05] MEDS: ENOXAPARIN 30 MG/0.3 ML SYR SQ SCH ×2 (08:29→20:53)
[2017-03-05] MEDS ORDERED: HYDROCHLOROTHIAZIDE 25 MG TAB PO SCH (09:00)
--- NOTE | 2017-03-05 10:28 | Orthopedic Progress Note ---
Orthopedic Progress Note Date of Service Mar 05, 2017. Subjective Post OP Day: 1 Reports: feeling well, pain controlled w PO medications, Denies: SOB, calf pain , chest pain, complaints, light headedness, nausea / vomiting Objective calves soft nontender, N/V intact, capillary refill less than 2 sec., dressing C /D/I, A&O x3, toes mobile Date Time Temp Pulse Resp B/P Pulse Ox O2 Delivery O2 Flow Rate FiO2 03/05/17 08:22 93 Room Air BiPAP 03/05/17 06:58 36.4 59 17 100/64 95 Room Air 03/05/17 03:45 36.4 62 16 114/79 97 CPAP 03/05/17 00:03 60 94 2.0 03/04/17 23:03 36.3 62 16 107/71 94 CPAP 03/04/17 20:22 58 99 2.0 03/04/17 19:35 BiPAP 03/04/17 18:16 56 122/78 95 Room Air 03/04/17 15:18 36.2 56 16 116/75 99 Room Air 03/04/17 13:51 55 19 114/82 99 Nasal Cannula 2.0 03/04/17 12:50 55 18 117/79 99 Nasal Cannula 2.0 03/04/17 11:50 36.2 57 17 104/71 99 Nasal Cannula 2.0 03/04/17 11:19 36.2 65 16 102/68 96 Nasal Cannula 2.0 03/04/17 10:50 Nasal Cannula 2.0 03/04/17 10:50 36.1 66 16 118/78 96 Nasal Cannula 2.0 03/04/17 10:50 Nasal Cannula 2.0 Laboratory Results 24 Hours: Test 03/04/17 12:39 03/05/17 05:20 White Blood Count 8.76 K/uL Red Blood Count 4.10 M/uL Hemoglobin 12.3 g/dL 10.1 g/dL Hematocrit 36.8 % 31.0 % Mean Corpuscular Volume 89.8 fL Mean Corpuscular Hemoglobin 30.0 pg Mean Corpuscular Hemoglobin Concent 33.4 g/dl Platelet Count 172 K/uL Mean Platelet Volume 9.1 fL Neutrophils (%) (Auto) 91.1 % Lymphocytes (%) (Auto) 7.5 % Monocytes (%) (Auto) 0.9 % Eosinophils (%) (Auto) 0.2 % Basophils (%) (Auto) 0.1 % Neutrophils # (Auto) 7.97 K/uL Lymphocytes # (Auto) 0.66 K/uL Monocytes # (Auto) 0.08 K/uL Eosinophils # (Auto) 0.02 K/uL Basophils # (Auto) 0.01 K/uL Assessment & Plan Assessment: POD 1 - Right TKA Plan: OOB/PT - WBAT RLE with immobilizer/walker Ice and elevate right lower extremity as needed for pain/swelling. Appreciate medicine input/assistance Continue CPAP as ordered Pain medication as prescribed. Regular diet as ordered. Teds/Foot pumps and Lovenox ordered to start in AM 30mg BID x 4 weeks. Plan for discharge to her home with home health on . All questions answered. Discharge Planning Discharge Planning: home with home health Pain Management: Percocet, Ultram DVT Prophylaxis: TEDs, Lovenox (30 mg BID x 4 weeks; then ASA daily) Therapy: Physical Therapy
[2017-03-05] MEDS ORDERED: CLC100 PO (10:57)
[2017-03-05] MEDS ORDERED: OXYC-57 PO (10:57)
[2017-03-05] MEDS ORDERED: LVNIS30 SQ (10:57)
[2017-03-05] MEDS ORDERED: ULT50X PO (10:57)
--- NOTE | 2017-03-05 11:07 | Discharge Instructions ---
Discharge Instructions Date of Service Mar 05, 2017. Admission Reason for Admission: Right Knee Osteoarthritis Discharge Discharge Diagnosis / Problem: DJD right knee Discharge Goals Goal(s): Decrease discomfort, Improve function, Increase independence Activity Recommendations Activity Limitations: per Instructions/Follow-up section Weightbearing Status: Left weightbearing (as tolerated), Right weightbearing ( as tolerated) . Instructions / Follow-Up Instructions / Follow-Up New Medicine: * You will likely be taking one or more of these medications: 1. Lovenox - One injection every 12 hours x 4 weeks; after completion of the Lovenox you will be placed on Aspirin. 2. Percocet - Take, as directed, when you need it, every four to six hours to control your pain. 3. Tramadol - take, as directed, when you need it, every 4-6 hours to control your pain. 4. Colace & Senokot - Take to prevent constipation which can be caused by narcotics. These can be bought [id number] at the pharmacy * The most common side effects of pain medicine and iron are nausea and constipation. If nausea or constipation is too much of a problem or if you have any questions about your new medicines or doses, call [facility] at . We will try to help you manage these issues. VERY IMPORTANT TO READ AND REVIEW" Blood Clots and Blood Thinning Medicine: * You are given Lovenox during the immediate post-operative period to lessen the risk of blood clots forming in your legs and/or lungs. Physical Therapy: * Do your physical therapy at home. These are the exercises you learned while in the hospital (quad sets, leg raises, calf pumps, gluteal squeezes, knee bending, and heel props.) You should do these exercises 3-4 times per day. * You will either go to inpatient rehab ([facility]), home with Home Therapy and nursing or home with outpatient rehab. You should do rehab with the therapist 2-3 times per week. You should do therapy on your own daily. * You may bear full weight on your leg with crutches or walker unless otherwise advised. Home Exercise: * You were shown a series of exercises (heel props, heel slides, etc.) in the hospital. Do these exercises three to four times each day including the exercises you were shown in physical therapy. Walking: * You may be up for short periods of time. Standing and walking for 1-2 hours at a time is usually okay. You should not stand or walk for excessive periods of time as this may cause increased pain and swelling. SELF CARE INSTRUCTIONS AFTER TOTAL KNEE REPLACEMENT A. You may need to continue a physical therapy program after discharge from the hospital. There are several options available to you. Your doctor will assist you in selecting the best one for you. 1. An out-patient facility 2 to 3 times a week for therapy or home therapy. 2. Continue working on all exercises taught to you in the hospital. Your goals should be to increase bending of your knee to 90 degrees and beyond and to fully straighten your knee. B. Your therapist will notify you when you are able to progress from a walker to a cane. C. Wear TEDS as much as possible.~ They may be removed at night for laundering. D. Do not place a pillow behind your knee when resting. A pillow at your ankle is okay. E. Ice your knee 15-20 minutes every 2-3 hours and elevate it above the level of your heart. F. You may shower on the fourth day after surgery using regular soap and water. Do not submerge until the wound is completely healed (approximately 2 weeks ). Until the fourth day after surgery, cover the incision/bandage with a bag or plastic wrap. G. Anyone who is touching your surgical incision area should wash their hands and wear gloves. H. Keep your incision covered with gauze pads under the ZENA hose until it is dry. VERY IMPORTANT TO READ AND REVIEW A. YOU WILL BE GIVEN AN ORDER AT DISCHARGE FOR PT/INR (BLOOD WORK). PLEASE HAVE THIS DONE INSTRUCTED. PLEASE CALL OUR OFFICE AFTER YOUR BLOODWORK IS COMPLETE SO WE CAN TRACK YOUR RESULTS. IF YOU ARE GOING TO OUTPATIENT PHYSICAL THERAPY, YOU WILL NEED TO GO TO OUTPATIENT TESTING TO HAVE IT DRAWN. B. There are a few signs you need to watch for after you are home. Call [facility] if you notice any of the followin. Increased severe knee pain. Some pain is expected especially when you exercise. 2. Increased swelling in your leg or knee; pain or swelling of the calf muscle in either lower leg. 3. Any fluid drainage from the incision. 4. Shortness of breath or chest pain. 5. Numbness and tingling in the surgical extremity C. Please call [facility] at if you have any concerns or questions about your operation or recovery. The doctor or his nurse will return your call promptly. D. Do not have any elective dental work or other elective procedures done for 6 weeks after your knee replacement. When you have any invasive procedure (dental cleaning, extraction, colonoscopy etc) performed, you will need to take antibiotics to prevent infection from developing in your artificial joint. Tell your other health care providers you have an artificial joint. My office will supply you with further information and the antibiotics. Call your doctor if: * Temperature above 101 degrees F. * Pain not relieved by pain medicine ordered. * Increased drainage or redness from incision. * Notify your doctor with any questions or concerns. Follow-up Visit: You will follow-up with Dr. Lara 10-14 days after surgery. The office number is . You have a follow up appointment with Dr. Lara on 03/18/17 at 2:45 p.m. You have an outpatient physical therapy appointment on 03/24/17 at 10:30 a.m. Avoid all tobacco products. If you need help to stop smoking, call [place] FREE QUITLINE at . This is a free call. Current Hospital Diet Patient's current hospital diet: Regular Diet Discharge Diet Recommended Diet: Regular Diet Procedures Procedures Performed: Right total knee arthroplasty Pending Studies Studies pending at discharge: no Medical Emergencies . Who to Call and When: Medical Emergencies: If at any time you feel your situation is an emergency, please call 911 immediately. . Non-Emergent Contact Non-Emergency issues call your: Surgeon Call Non-Emergent contact if: temperature is above 101, your pain is not controlled, your pain is worsening, your pain is concerning you, wound has increased drainage, you have any medication questions . "Provider Documentation" section prepared by Tammy Hernández. . VTE Core Measure Inpt VTE Proph given/why not?: Enoxaparin (Lovenox)SQ (30mg twice daily x 4 weeks), T.EMode Aguilar [place] Drug Monitoring Program Search Results: patient reviewed within database, no issues identified
--- NOTE | 2017-03-05 12:43 | Hospitalist Progress Note ---
Hospitalist Progress Note Date of Service Mar 05, 2017. (Prema Waddell PA-C) Subjective Pt evaluation today including: conversation w/ patient, conversation w/ family , physical exam, chart review, lab review, conversation w/ lifestyle consultant, review of inpatient medication list pt reports minimal pain at rest. She denies any nausea. Tolerating a diet. Passing gas but no bowel movements yet. No abdominal pain. Denies any dizziness, chest pain or pressure. Additional Comments: 6 system review negative. Please see pertinent positives in the history of present illness section. (Prema Waddell PA-C) Objective Vital Signs Date Time Temp Pulse Resp B/P Pulse Ox O2 Delivery O2 Flow Rate FiO2 03/05/17 08:22 93 Room Air BiPAP 03/05/17 06:58 36.4 59 17 100/64 95 Room Air 03/05/17 03:45 36.4 62 16 114/79 97 CPAP 03/05/17 00:03 60 94 2.0 03/04/17 23:03 36.3 62 16 107/71 94 CPAP 03/04/17 20:22 58 99 2.0 03/04/17 19:35 BiPAP 03/04/17 18:16 56 122/78 95 Room Air 03/04/17 15:18 36.2 56 16 116/75 99 Room Air 03/04/17 13:51 55 19 114/82 99 Nasal Cannula 2.0 03/04/17 12:50 55 18 117/79 99 Nasal Cannula 2.0 03/04/17 11:50 36.2 57 17 104/71 99 Nasal Cannula 2.0 03/04/17 11:19 36.2 65 16 102/68 96 Nasal Cannula 2.0 03/04/17 10:50 Nasal Cannula 2.0 03/04/17 10:50 36.1 66 16 118/78 96 Nasal Cannula 2.0 03/04/17 10:50 Nasal Cannula 2.0 (Prema Waddell PA-C) Physical Exam General Appearance: no apparent distress Eyes: EOMI Neck: no JVD Respiratory/Chest: lungs clear Cardiovascular: regular rate, rhythm Abdomen: normal bowel sounds, non tender, soft Extremities: non-tender, no pedal edema Neurologic/Psychiatric: no motor/sensory deficits, oriented x 3 Skin: warm/dry (Prema Waddell PA-C) Laboratory Results 03/05/17 05:20 03/05/17 05:20 Test 03/04/17 13:25 03/05/17 05:20 Venous Blood pH 7.32 (7.36-7.41) Venous Blood Partial Pressure CO2 58 mmHg (38.0-50.0) Venous Blood Partial Pressure O2 45 mmHg Venous Blood HCO3 29 mmol/L Venous Blood Oxygen Saturation 74.3 % Venous Blood Base Excess 2.0 mmol/L Red Blood Count 3.46 M/uL (4.2-5.4) Mean Corpuscular Volume 89.6 fL (80-100) Mean Corpuscular Hemoglobin 29.2 pg (25-34) Mean Corpuscular Hemoglobin Concent 32.6 g/dl (32-36) RDW Standard Deviation 42.6 fL (36.4-46.3) RDW Coefficient of Variation 13.1 % (11.5-14.5) Mean Platelet Volume 9.4 fL (7.4-10.4) Anion Gap 6.0 mmol/L (3-11) Est Creatinine Clear Calc Drug Dose 47.0 ml/min Estimated GFR () 70.6 Estimated GFR (Non- 60.9 BUN/Creatinine Ratio 16.4 (10-20) Calcium Level 7.5 mg/dl (8.5-10.1) Last 24 Hours Test 03/04/17 12:39 03/04/17 13:25 03/05/17 05:20 White Blood Count 8.76 K/uL 11.54 K/uL Red Blood Count 4.10 M/uL 3.46 M/uL Hemoglobin 12.3 g/dL 10.1 g/dL Hematocrit 36.8 % 31.0 % Mean Corpuscular Volume 89.8 fL 89.6 fL Mean Corpuscular Hemoglobin 30.0 pg 29.2 pg Mean Corpuscular Hemoglobin Concent 33.4 g/dl 32.6 g/dl Platelet Count 172 K/uL 175 K/uL Mean Platelet Volume 9.1 fL 9.4 fL Neutrophils (%) (Auto) 91.1 % Lymphocytes (%) (Auto) 7.5 % Monocytes (%) (Auto) 0.9 % Eosinophils (%) (Auto) 0.2 % Basophils (%) (Auto) 0.1 % Neutrophils # (Auto) 7.97 K/uL Lymphocytes # (Auto) 0.66 K/uL Monocytes # (Auto) 0.08 K/uL Eosinophils # (Auto) 0.02 K/uL Basophils # (Auto) 0.01 K/uL RDW Standard Deviation 43.2 fL 42.6 fL RDW Coefficient of Variation 13.0 % 13.1 % Immature Granulocyte % (Auto) 0.2 % Immature Granulocyte # (Auto) 0.02 K/uL Sodium Level 140 mmol/L 138 mmol/L Potassium Level 3.5 mmol/L 4.2 mmol/L Chloride Level 104 mmol/L 104 mmol/L Carbon Dioxide Level 29 mmol/L 28 mmol/L Anion Gap 7.0 mmol/L 6.0 mmol/L Blood Urea Nitrogen 13 mg/dl 15 mg/dl Creatinine 0.79 mg/dl 0.92 mg/dl Est Creatinine Clear Calc Drug Dose 54.7 ml/min 47.0 ml/min Estimated GFR () 84.9 70.6 Estimated GFR (Non- 73.2 60.9 BUN/Creatinine Ratio 16.5 16.4 Random Glucose 126 mg/dl 111 mg/dl Calcium Level 8.5 mg/dl 7.5 mg/dl Venous Blood pH 7.32 Venous Blood Partial Pressure CO2 58 mmHg Venous Blood Partial Pressure O2 45 mmHg Venous Blood HCO3 29 mmol/L Venous Blood Oxygen Saturation 74.3 % Venous Blood Base Excess 2.0 mmol/L (Prema Waddell, PAJasonC) Assessment and Plan 76 y/o female s/p right total knee arthroplasty with Dr. Lara on 03/04 for medical management. -Pain management, DVT prophylaxis, and PT/OT as per primary team HTN--BP borderline. -continue to hold HCTZ and losartan today. -Reasonable to continue IVF @ 100 cc/hr today -Ok to give metoprolol XL 100 mg daily this AM -Ok to give doxazosin 4 mg tonight if SBP > 100 Acute blood loss anemia-Hgb stable at 10.1 HLD -Continue simvastatin 20 mg PO qd Hyperthyroidism -Continue methimazole 5 mg PO qd Restless leg syndrome -Continue Mirapex 0.25 mg PO qhs ?AMS with CO2 retention yesterday-Completely alert and oriented today -unsure why pt was on CPAP last night--??? hypoxia vs AMS -nocturnal oximetry study for eval NANI Code Status -Level I, FULL RESUSCITATION STATUS Thank you for this consultation. We will continue to follow. This chart was completed in part utilizing [employer] Voice Recognition software. Attempts were made to minimize the grammatical errors, random word insertions, pronoun errors and incomplete sentences. Any formal questions or concerns about the content, text or information contained within the body of this dictation should be directly addressed to the provider for clarification. (Prema Waddell, CHIO) Reviewed: Pt Seen/Exam by Me (Ana Wnin MD) History Physician Airline Captain Supervision Note: I interviewed and examined the patient. Discussed with ADAIR Waddell and agree with findings and plan as documented in the note. Any exceptions or clarifications are listed here: Patient feeling well. RN reports that patient was on BiPAP postoperatively and all last night as she was having hypoxia although this is not documented in the vital signs. Nurse reports that when the mask was off and the patient was drowsy from anesthesia and pain medication, she was desaturating. reports patient has been snoring and has witnessed apneas while she is sleeping for years. She has never had a sleep study VSS Morbidly obese, NAD RRR normal S1 and S2 Clear to auscultation bilaterally, breathing unlabored, no wheezes crackles or rhonchi Abdomen soft nontender positive bowel sounds, morbidly obese Extremities-right knee in brace, no edema 76-year-old female here status post right TKA with history of hypertension, hyperthyroidism, restless leg syndrome, hyperlipidemia. Required BiPAP nocturnally but is now doing well on room air. Likely has undiagnosed NANI. -Overnight oximetry test and will need nocturnal O2 or nocturnal CPAP if qualifies -Postoperative management as per orthopedics, pain control, DVT prophylaxis -Continue home meds except holding BP meds for low normal blood pressure Documented By: Ana Winn (Ana Winn MD)
--- NOTE | 2017-03-05 13:07 | Anesthesiology Progress Note ---
Anesthesia Post Op Note Date & Time Mar 05, 2017 at 13:05 Vital Signs Pain Intensity: 2.0 Vital Signs Past 12 Hours Date Time Temp Pulse Resp B/P Pulse Ox O2 Delivery O2 Flow Rate FiO2 03/05/17 08:22 93 Room Air BiPAP 03/05/17 06:58 36.4 59 17 100/64 95 Room Air 03/05/17 03:45 36.4 62 16 114/79 97 CPAP Notes Mental Status: alert / awake / arousable, participated in evaluation Pt Amnestic to Procedure: Yes Nausea / Vomiting: adequately controlled Pain: adequately controlled Airway Patency, RR, SpO2: stable & adequate BP & HR: stable & adequate Hydration State: stable & adequate Neuraxial Anesthesia: sensory block resolved Anesthetic Complications: no major complications apparent
[2017-03-05] MEDS ORDERED: SODIUM CHLORIDE 0.9% 500ML 500 ML IV ONE (15:15)
[2017-03-05] MEDS ORDERED: NURSING VERBAL MED ORDER ONE (15:15)
[2017-03-05] MEDS: OXYCODONE HCL IR 5 MG TAB (IMMEDIATE RELEASE) PO PRN ×2 (18:28→19:59)
--- NOTE | 2017-03-05 19:38 | PROGRESS NOTE ---
DATE: 03/05/2017 Sitting up, resting comfortably. Pain is well controlled. Afebrile. Vital signs stable. She did well with PT. Continue routine postop orthopedic care. We will plan on changing her dressing tomorrow. Use knee immobilizer when ambulating.
[2017-03-05] MEDS: DOXAZosin MESYLATE TAB 4 MG TAB PO SCH (20:54)
[2017-03-05] MEDS: PRAMIPEXOLE DIHYDROCHLORIDE 0.5 MG TAB PO SCH (20:54)
[2017-03-05] MEDS: SIMVASTATIN 20 MG TAB PO SCH (20:54)
[2017-03-05] MEDS: CeleBREX 200 MG CAP PO SCH (20:55)
[2017-03-06] MEDS: OXYCODONE HCL IR 5 MG TAB (IMMEDIATE RELEASE) PO PRN (05:29)
[2017-03-06 06:29] LABS: BASO % 0.1 %; BASO ABS # 0.01 K/uL (0-0.2); COMPLETE YES; EOS % 0.5 %; HEMATOCRIT 28.4 % (37-47); IG% 0.1 %; LYMPH % 15.6 %; LYMPH ABS # 1.22 K/uL (1.2-3.4); MEAN CELL VOLUME 88.5 fL (80-100); MEAN CORPUSCULAR HEMOGLOBIN 31.5 pg (25-34); MEAN CORPUSCULAR HGB CONC 35.6 g/dl (32-36); MEAN PLATELET VOLUME 9.7 fL (7.4-10.4); NEUT % 75.7 %; PLATELET COUNT 153 K/uL (130-400); RED BLOOD COUNT 3.21 M/uL (4.2-5.4); WHITE BLOOD COUNT 7.83 K/uL (4.8-10.8)
[2017-03-06 06:37] LABS: PARTIAL THROMBOPLASTIN RATIO 1.1
[2017-03-06 06:54] LABS: BUN/CREATININE RATIO 16.7 (10-20); CALCIUM 7.9 mg/dl (8.5-10.1); CREATININE 0.84 mg/dl (0.60-1.20); POTASSIUM 3.8 mmol/L (3.5-5.1)
[2017-03-06 06:57] VITALS: BP 125/79; PULSE 71; TEMP 36.8; O2SAT 92
[2017-03-06] MEDS: DOCUSATE SODIUM 100 MG CAP PO SCH ×2 (08:46→21:30)
[2017-03-06] MEDS: CeleBREX 200 MG CAP PO SCH ×2 (08:46→21:34)
[2017-03-06] MEDS: PANTOprazole SOD 40 MG TAB PO SCH (08:47)
[2017-03-06] MEDS: METHIMAZOLE 5 MG TAB PO SCH (08:47)
[2017-03-06] MEDS: MULTIVITAMIN TAB PO SCH (08:47)
[2017-03-06] MEDS: CHOLECALCIFEROL 1000 INTER.UNIT TAB PO SCH ×2 (08:48→21:30)
[2017-03-06] MEDS: METOPROLOL SUCC 50MG EXT REL TAB PO SCH (08:48)
[2017-03-06] MEDS: ENOXAPARIN 30 MG/0.3 ML SYR SQ SCH ×2 (08:49→21:33)
--- NOTE | 2017-03-06 09:35 | Orthopedic Progress Note ---
Orthopedic Progress Note Date of Service Mar 06, 2017. Subjective Post OP Day: 2 Reports: complaints (more pain in right knee today), feeling well, pain controlled w PO medications, Denies: SOB, calf pain, chest pain, light headedness, nausea / vomiting Additional Notes: States belching, not passing gas, no BM yet. She states that she had a "rough" night due to CPAP machine and foot pumps Objective calves soft nontender, N/V intact, capillary refill less than 2 sec., incision C /D/I, A&O x3, toes mobile Lety retained. ZENA stocking in place. Distal pulses 1+, Strength nml. Date Time Temp Pulse Resp B/P Pulse Ox O2 Delivery O2 Flow Rate FiO2 03/06/17 08:04 Room Air 03/06/17 06:57 36.8 71 16 125/79 92 Room Air 03/05/17 23:28 96 BiPAP 03/05/17 23:25 36.7 66 18 137/87 86 Room Air 03/05/17 19:55 Room Air 03/05/17 15:53 36.7 63 17 134/85 91 Room Air Laboratory Results 24 Hours: Test 03/06/17 05:26 White Blood Count 7.83 K/uL Red Blood Count 3.21 M/uL Hemoglobin 10.1 g/dL Hematocrit 28.4 % Mean Corpuscular Volume 88.5 fL Mean Corpuscular Hemoglobin 31.5 pg Mean Corpuscular Hemoglobin Concent 35.6 g/dl Platelet Count 153 K/uL Mean Platelet Volume 9.7 fL Neutrophils (%) (Auto) 75.7 % Lymphocytes (%) (Auto) 15.6 % Monocytes (%) (Auto) 8.0 % Eosinophils (%) (Auto) 0.5 % Basophils (%) (Auto) 0.1 % Neutrophils # (Auto) 5.92 K/uL Lymphocytes # (Auto) 1.22 K/uL Monocytes # (Auto) 0.63 K/uL Eosinophils # (Auto) 0.04 K/uL Basophils # (Auto) 0.01 K/uL Assessment & Plan Assessment: POD 2 - Right TKA Plan: OOB/PT - WBAT RLE with walker Ice and elevate right lower extremity as needed for pain/swelling. Appreciate medicine input/assistance Continue CPAP as ordered - Discussed with medicine, she desaturates at night, she needs to go home with CPAP. director of therapy services looking into it. Pain medication as prescribed. Regular diet as ordered. Teds/Foot pumps and Lovenox ordered to start in AM 30mg BID x 4 weeks. Plan for discharge to her home with home health today if cleared by medicine regarding O2 needs. D/C immobiliizer today. All questions answered. Discharge Planning Discharge Planning: home with home health Pain Management: Percocet, Ultram DVT Prophylaxis: TEDs, Lovenox (30 mg BID x 4 weeks; then ASA daily) Therapy: Physical Therapy
--- NOTE | 2017-03-06 10:08 | Clinical Documentation Query ---
BECKI Rogers : CLINICAL DOCUMENTATION QUERY Patient is a 76 year old female who underwent right TKA on 03/04 who postoperatively was described to have an "altered mental status". This was noted in the context of CO2 retention as documented by ABG. Patient had been ordered Bi-PAP therapy by float physician the afternoon of surgery. Per attending addendum, patient "likely has undiagnosed NANI". Patient noted to be alert and oriented the following a.m. In your clinical opinion is this patient being managed for: ( x ) Metabolic encephalopathy secondary to hypercarbia, resolved with NIPPV ( ) Other explanation of clinical findings (Please Explain) ( ) Unable to determine (Please Define) ( ) Need to Discuss ( ) Not Agree The medical record reflects the following clinical findings, treatment, and risk factors. Clinical Indicators: AMS in the setting of hypercarbia in the setting of general anesthesia and analgesia Treatment: Bi-PAP/NIPPV Risk Factors: General anesthesia, analgesia Please clarify and document your clinical opinion in the progress notes and discharge summary. Terms such as "probable", "suspected", "likely", "questionable", "possible", or "still to be ruled out" are acceptable. IF IN AGREEMENT, YOU MUST DOCUMENT ABOVE DIAGNOSTIC STATEMENT IN DAILY PROGRESS NOTES AND DISCHARGE SUMMARY. This document is not part of the patient's record. Thank You, Baldemar George, NICHOLAS [phone]
[2017-03-06] MEDS: TRAMADOL HCL 50 MG TAB PO PRN (12:42)
--- NOTE | 2017-03-06 13:46 | Hospitalist Progress Note ---
Hospitalist Progress Note Date of Service Mar 06, 2017. (Prema Waddell PA-C) Subjective Pt evaluation today including: conversation w/ patient, physical exam, chart review, lab review, review of inpatient medication list Patient reports mild right knee pain. Worse with exercise. She was able to participate with physical therapy without difficulty today. Denies any chest pain or pressure. Denies any shortness of breath. She reports no known history of obstructive sleep apnea. She denies any nausea or vomiting tolerating a diet. No bowel movement yet. She is however passing gas. Additional Comments: 6 system review negative. Please see pertinent positives in the history of present illness section. (Prema Waddell PA-C) Objective Vital Signs Date Time Temp Pulse Resp B/P Pulse Ox O2 Delivery O2 Flow Rate FiO2 03/06/17 08:04 Room Air 03/06/17 06:57 36.8 71 16 125/79 92 Room Air 03/05/17 23:28 96 BiPAP 03/05/17 23:25 36.7 66 18 137/87 86 Room Air 03/05/17 19:55 Room Air 03/05/17 15:53 36.7 63 17 134/85 91 Room Air (Prema Waddell PA-C) Physical Exam General Appearance: no apparent distress Eyes: EOMI Neck: no JVD Respiratory/Chest: lungs clear Cardiovascular: regular rate, rhythm Abdomen: normal bowel sounds, non tender, soft Extremities: non-tender, no pedal edema Neurologic/Psychiatric: no motor/sensory deficits, oriented x 3 Skin: warm/dry (Prema Waddell PA-C) Laboratory Results 03/06/17 05:26 Red Blood Count 3.21, Mean Corpuscular Volume 88.5, Mean Corpuscular Hemoglobin 31.5, Mean Corpuscular Hemoglobin Concent 35.6, Mean Platelet Volume 9.7, Neutrophils (%) (Auto) 75.7, Lymphocytes (%) (Auto) 15.6, Monocytes (%) (Auto) 8.0, Eosinophils (%) (Auto) 0.5, Basophils (%) (Auto) 0.1, Neutrophils # (Auto) 5.92, Lymphocytes # (Auto) 1.22, Monocytes # (Auto) 0.63, Eosinophils # (Auto) 0.04, Basophils # (Auto) 0.01 03/06/17 05:26 Test 03/06/17 05:26 White Blood Count 7.83 K/uL (4.8-10.8) Red Blood Count 3.21 M/uL (4.2-5.4) Hemoglobin 10.1 g/dL (12.0-16.0) Hematocrit 28.4 % (37-47) Mean Corpuscular Volume 88.5 fL (80-100) Mean Corpuscular Hemoglobin 31.5 pg (25-34) Mean Corpuscular Hemoglobin Concent 35.6 g/dl (32-36) Platelet Count 153 K/uL (130-400) Mean Platelet Volume 9.7 fL (7.4-10.4) Neutrophils (%) (Auto) 75.7 % Lymphocytes (%) (Auto) 15.6 % Monocytes (%) (Auto) 8.0 % Eosinophils (%) (Auto) 0.5 % Basophils (%) (Auto) 0.1 % Neutrophils # (Auto) 5.92 K/uL (1.4-6.5) Lymphocytes # (Auto) 1.22 K/uL (1.2-3.4) Monocytes # (Auto) 0.63 K/uL (0.11-0.59) Eosinophils # (Auto) 0.04 K/uL (0-0.5) Basophils # (Auto) 0.01 K/uL (0-0.2) RDW Standard Deviation 42.3 fL (36.4-46.3) RDW Coefficient of Variation 13.1 % (11.5-14.5) Immature Granulocyte % (Auto) 0.1 % Immature Granulocyte # (Auto) 0.01 K/uL (0.00-0.02) Activated Partial Thromboplast Time 28.9 SECONDS (21.0-31.0) Partial Thromboplastin Ratio 1.1 Anion Gap 6.0 mmol/L (3-11) Est Creatinine Clear Calc Drug Dose 51.4 ml/min Estimated GFR () 78.8 Estimated GFR (Non- 68.0 BUN/Creatinine Ratio 16.7 (10-20) Calcium Level 7.9 mg/dl (8.5-10.1) Last 24 Hours Test 03/06/17 05:26 White Blood Count 7.83 K/uL Red Blood Count 3.21 M/uL Hemoglobin 10.1 g/dL Hematocrit 28.4 % Mean Corpuscular Volume 88.5 fL Mean Corpuscular Hemoglobin 31.5 pg Mean Corpuscular Hemoglobin Concent 35.6 g/dl Platelet Count 153 K/uL Mean Platelet Volume 9.7 fL Neutrophils (%) (Auto) 75.7 % Lymphocytes (%) (Auto) 15.6 % Monocytes (%) (Auto) 8.0 % Eosinophils (%) (Auto) 0.5 % Basophils (%) (Auto) 0.1 % Neutrophils # (Auto) 5.92 K/uL Lymphocytes # (Auto) 1.22 K/uL Monocytes # (Auto) 0.63 K/uL Eosinophils # (Auto) 0.04 K/uL Basophils # (Auto) 0.01 K/uL RDW Standard Deviation 42.3 fL RDW Coefficient of Variation 13.1 % Immature Granulocyte % (Auto) 0.1 % Immature Granulocyte # (Auto) 0.01 K/uL Activated Partial Thromboplast Time 28.9 SECONDS Partial Thromboplastin Ratio 1.1 Sodium Level 136 mmol/L Potassium Level 3.8 mmol/L Chloride Level 103 mmol/L Carbon Dioxide Level 27 mmol/L Anion Gap 6.0 mmol/L Blood Urea Nitrogen 14 mg/dl Creatinine 0.84 mg/dl Est Creatinine Clear Calc Drug Dose 51.4 ml/min Estimated GFR () 78.8 Estimated GFR (Non- 68.0 BUN/Creatinine Ratio 16.7 Random Glucose 76 mg/dl Calcium Level 7.9 mg/dl (Prema Waddell, PA-C) Assessment and Plan 76 y/o female s/p right total knee arthroplasty with Dr. Lara on 03/04 for medical management. -Pain management, DVT prophylaxis, and PT/OT as per primary team Metabolic encephalopathy secondary to hypercarbia Acute respiratory failure ? secondary to NANI -Needs nocturnal oximetry with ABG at 0500 tonight -NO O2, BIPAP OR CPAP TONIGHT -likely will need home CPAP HTN--BP better -Continue metoprolol XL 100 mg daily, doxazosin 4 mg HS -Restart Losartan 100 mg tomorrow morning -Resume HCTZ upon d/c Acute blood loss anemia-Hgb stable at 10.1 HLD -Continue simvastatin 20 mg PO qd Hyperthyroidism -Continue methimazole 5 mg PO qd Restless leg syndrome -Continue Mirapex 0.25 mg PO qhs Code Status -Level I, FULL RESUSCITATION STATUS Thank you for this consultation. We will continue to follow. This chart was completed in part utilizing [employer] Speech Voice Recognition software. Attempts were made to minimize the grammatical errors, random word insertions, pronoun errors and incomplete sentences. Any formal questions or concerns about the content, text or information contained within the body of this dictation should be directly addressed to the provider for clarification. (Prema Waddell PA-C) Reviewed: Pt Seen/Exam by Me (Ana Winn MD) History Physician Radiosonde Specialist Supervision Note: I interviewed and examined the patient. Discussed with ADAIR Waddell and agree with findings and plan as documented in the note. Any exceptions or clarifications are listed here: Patient feeling well. Was wearing BiPAP last night so overnight oximetry not done. VSS Morbidly obese, NAD RRR normal S1 and S2 Clear to auscultation bilaterally, breathing unlabored, no wheezes crackles or rhonchi Abdomen soft nontender positive bowel sounds, morbidly obese Extremities-right knee in brace, no edema 76-year-old female here status post right TKA with history of hypertension, hyperthyroidism, restless leg syndrome, hyperlipidemia. Required BiPAP nocturnally but is now doing well on room air while awake. Likely has undiagnosed NANI. -Overnight oximetry test needs to be done tonight and will need nocturnal O2 or nocturnal CPAP if qualifies, will need outpt sleep study -Postoperative management as per orthopedics, pain control, DVT prophylaxis -Continue home meds except holding BP meds for low normal blood pressure Documented By: Ana Winn (Ana Winn MD)
--- NOTE | 2017-03-06 14:38 | Progress Note ---
Progress Note Date of Service Mar 06, 2017. Progress Note Spoke to patient, she's disappointed that she's not going home today, but understands why. She is agreeable to stay. She states she's "feels worn out and tired" this afternoon. Recommended resting, pain meds as prescribed. For nocturnal pulse ox study tonight and morning ABG's. Will plan home tomorrow with home health and social work professor is working on home CPAP machine. Will reassess in the AM.
[2017-03-06] MEDS: LOSARTAN POTASSIUM 50 MG TAB PO SCH (15:16)
[2017-03-06 16:07] VITALS: BP 97/68; PULSE 70; TEMP 37.1; O2SAT 92
[2017-03-06] MEDS: SIMVASTATIN 20 MG TAB PO SCH (21:30)
[2017-03-06] MEDS: DOXAZosin MESYLATE TAB 4 MG TAB PO SCH (21:31)
[2017-03-06] MEDS: PRAMIPEXOLE DIHYDROCHLORIDE 0.5 MG TAB PO SCH (21:31)
[2017-03-06 23:23] VITALS: BP 129/79; PULSE 82; TEMP 37.3; O2SAT 80
[2017-03-07 00:49] VITALS: O2SAT 90
[2017-03-07 05:46] LABS: ALLEN TEST POS (POS); ARTERIAL BLD GAS O2 SATURATION 91.1 % (90-95); ARTERIAL BLOOD GAS BASE EXCESS 0.5 mEq/L (-9-1.8); ARTERIAL BLOOD GAS HCO3 24 mmol/L (19-24); ARTERIAL BLOOD GAS PO2 63 mm/Hg (80-95); ARTERIAL BLOOD GAS pH 7.48 (7.35-7.45); O2 ADMINISTRATION 2 L
[2017-03-07 06:06] LABS: BASO % 0.1 %; BASO ABS # 0.01 K/uL (0-0.2); COMPLETE YES; EOS % 3.3 %; HEMATOCRIT 27.3 % (37-47); IG% 0.1 %; LYMPH % 11.8 %; LYMPH ABS # 0.88 K/uL (1.2-3.4); MEAN CELL VOLUME 89.5 fL (80-100); MEAN CORPUSCULAR HEMOGLOBIN 29.8 pg (25-34); MEAN CORPUSCULAR HGB CONC 33.3 g/dl (32-36); MEAN PLATELET VOLUME 9.4 fL (7.4-10.4); MONO % 8.4 %; NEUT % 76.3 %; PLATELET COUNT 140 K/uL (130-400); RED BLOOD COUNT 3.05 M/uL (4.2-5.4); WHITE BLOOD COUNT 7.48 K/uL (4.8-10.8)
[2017-03-07 06:42] LABS: BUN/CREATININE RATIO 17.6 (10-20); CALCIUM 7.8 mg/dl (8.5-10.1); CREATININE 0.72 mg/dl (0.60-1.20); POTASSIUM 3.7 mmol/L (3.5-5.1)
[2017-03-07 07:36] VITALS: BP_SYST 153; BP_SYST 169; BP_DIAS 82; BP_DIAS 99; PULSE 75; TEMP 37; O2SAT 94
--- NOTE | 2017-03-07 08:02 | Orthopedic Progress Note ---
Orthopedic Progress Note Date of Service Mar 07, 2017. Subjective Post OP Day: 3 Reports: complaints (states feeling very tired, but slept better last night without the CPAP on.), feeling well, pain controlled w PO medications, Denies: SOB, calf pain, chest pain, light headedness, nausea / vomiting Objective calves soft nontender, N/V intact, capillary refill less than 2 sec., incision C /D/I, A&O x3, toes mobile Date Time Temp Pulse Resp B/P Pulse Ox O2 Delivery O2 Flow Rate FiO2 03/07/17 07:36 37.0 75 14 153/82 94 Nasal Cannula 2.0 169/99 03/07/17 00:49 90 Nasal Cannula 2.0 03/07/17 00:30 Room Air 03/06/17 23:23 37.3 82 16 129/79 80 Room Air 03/06/17 16:07 37.1 70 18 97/68 92 Room Air 03/06/17 15:45 Room Air 03/06/17 08:04 Room Air Laboratory Results 24 Hours: Test 03/07/17 05:20 White Blood Count 7.48 K/uL Red Blood Count 3.05 M/uL Hemoglobin 9.1 g/dL Hematocrit 27.3 % Mean Corpuscular Volume 89.5 fL Mean Corpuscular Hemoglobin 29.8 pg Mean Corpuscular Hemoglobin Concent 33.3 g/dl Platelet Count 140 K/uL Mean Platelet Volume 9.4 fL Neutrophils (%) (Auto) 76.3 % Lymphocytes (%) (Auto) 11.8 % Monocytes (%) (Auto) 8.4 % Eosinophils (%) (Auto) 3.3 % Basophils (%) (Auto) 0.1 % Neutrophils # (Auto) 5.70 K/uL Lymphocytes # (Auto) 0.88 K/uL Monocytes # (Auto) 0.63 K/uL Eosinophils # (Auto) 0.25 K/uL Basophils # (Auto) 0.01 K/uL Assessment & Plan Assessment: POD 3 - Right TKA Plan: OOB/PT - WBAT RLE with walker Ice and elevate right lower extremity as needed for pain/swelling. Appreciate medicine input/assistance Pulse ox study/ABG done this morning. [employer] services supervisor contacted [facility] for at home needs. Pain medication as prescribed. Regular diet as ordered. Teds/Foot pumps and Lovenox ordered to start in AM 30mg BID x 4 weeks. Will discuss findings with Dr. Lara All questions answered. Plan for discharge to her home with home health today. Discharge Planning Discharge Planning: home with home health Pain Management: Percocet, Ultram DVT Prophylaxis: TEDs, Lovenox (30 mg BID x 4 weeks; then ASA daily) Therapy: Physical Therapy
[2017-03-07] MEDS: PANTOprazole SOD 40 MG TAB PO SCH (09:02)
[2017-03-07] MEDS: CeleBREX 200 MG CAP PO SCH (09:02)
[2017-03-07] MEDS: METHIMAZOLE 5 MG TAB PO SCH (09:03)
[2017-03-07] MEDS: CHOLECALCIFEROL 1000 INTER.UNIT TAB PO SCH (09:03)
[2017-03-07] MEDS: LOSARTAN POTASSIUM 50 MG TAB PO SCH (09:03)
[2017-03-07] MEDS: METOPROLOL SUCC 50MG EXT REL TAB PO SCH (09:04)
[2017-03-07] MEDS: ENOXAPARIN 30 MG/0.3 ML SYR SQ SCH (09:04)
[2017-03-07] MEDS: MULTIVITAMIN TAB PO SCH (09:04)
[2017-03-07] MEDS: DOCUSATE SODIUM 100 MG CAP PO SCH (09:04)
--- NOTE | 2017-03-07 11:03 | Hospitalist Progress Note ---
Hospitalist Progress Note Date of Service Mar 07, 2017. (Prema Waddell PA-C) Subjective Pt evaluation today including: conversation w/ patient, conversation w/ family , physical exam, chart review, lab review, review of studies, conversation w/ supervisor home energy consultant, review of inpatient medication list Patient reports mild to moderate pain with ambulation. It is tolerable. Pain medication is helping. She hasn't needed any narcotics for approximately 12 hours. Admits to feeling winded with ambulation. Denies any chest pain. She is passing gas. No bowel movements yet. No nausea. Additional Comments: 6 system review negative. Please see pertinent positives in the history of present illness section. (Prema Waddell PA-C) Objective Vital Signs Date Time Temp Pulse Resp B/P Pulse Ox O2 Delivery O2 Flow Rate FiO2 03/07/17 07:36 37.0 75 14 153/82 94 Nasal Cannula 2.0 169/99 03/07/17 07:00 Nasal Cannula 2.0 03/07/17 00:49 90 Nasal Cannula 2.0 03/07/17 00:30 Room Air 03/06/17 23:23 37.3 82 16 129/79 80 Room Air 03/06/17 16:07 37.1 70 18 97/68 92 Room Air 03/06/17 15:45 Room Air (Prema Waddell PA-C) Physical Exam General Appearance: no apparent distress Eyes: EOMI ENT: + pertinent finding (oral mucosa slightly dry) Neck: no JVD Respiratory/Chest: + pertinent finding (faint crackles left base) Cardiovascular: regular rate, rhythm Abdomen: normal bowel sounds, non tender, soft Extremities: + pertinent finding (trace pitting edema in the lower extremity bilaterally) Neurologic/Psychiatric: oriented x 3, + pertinent finding (cerebellar function intact. Strength equal throughout. Her most finger to nose. No pronator drift. Slightly slurred speech noted. Alert and oriented 3.) Skin: warm/dry (Prema Waddell PA-C) Laboratory Results 03/07/17 05:20 Red Blood Count 3.05, Mean Corpuscular Volume 89.5, Mean Corpuscular Hemoglobin 29.8, Mean Corpuscular Hemoglobin Concent 33.3, Mean Platelet Volume 9.4, Neutrophils (%) (Auto) 76.3, Lymphocytes (%) (Auto) 11.8, Monocytes (%) (Auto) 8.4, Eosinophils (%) (Auto) 3.3, Basophils (%) (Auto) 0.1, Neutrophils # (Auto) 5.70, Lymphocytes # (Auto) 0.88, Monocytes # (Auto) 0.63, Eosinophils # (Auto) 0.25, Basophils # (Auto) 0.01 03/07/17 05:20 Test 03/07/17 05:20 03/07/17 05:27 White Blood Count 7.48 K/uL (4.8-10.8) Red Blood Count 3.05 M/uL (4.2-5.4) Hemoglobin 9.1 g/dL (12.0-16.0) Hematocrit 27.3 % (37-47) Mean Corpuscular Volume 89.5 fL (80-100) Mean Corpuscular Hemoglobin 29.8 pg (25-34) Mean Corpuscular Hemoglobin Concent 33.3 g/dl (32-36) Platelet Count 140 K/uL (130-400) Mean Platelet Volume 9.4 fL (7.4-10.4) Neutrophils (%) (Auto) 76.3 % Lymphocytes (%) (Auto) 11.8 % Monocytes (%) (Auto) 8.4 % Eosinophils (%) (Auto) 3.3 % Basophils (%) (Auto) 0.1 % Neutrophils # (Auto) 5.70 K/uL (1.4-6.5) Lymphocytes # (Auto) 0.88 K/uL (1.2-3.4) Monocytes # (Auto) 0.63 K/uL (0.11-0.59) Eosinophils # (Auto) 0.25 K/uL (0-0.5) Basophils # (Auto) 0.01 K/uL (0-0.2) RDW Standard Deviation 43.3 fL (36.4-46.3) RDW Coefficient of Variation 13.3 % (11.5-14.5) Immature Granulocyte % (Auto) 0.1 % Immature Granulocyte # (Auto) 0.01 K/uL (0.00-0.02) Anion Gap 6.0 mmol/L (3-11) Est Creatinine Clear Calc Drug Dose 60.0 ml/min Estimated GFR () 94.9 Estimated GFR (Non- 81.9 BUN/Creatinine Ratio 17.6 (10-20) Calcium Level 7.8 mg/dl (8.5-10.1) Arterial Blood pH 7.48 (7.35-7.45) Arterial Blood Partial Pressure CO2 33 mmHg (35-46) Arterial Blood Partial Pressure O2 63 mm/Hg (80-95) Arterial Blood HCO3 24 mmol/L (19-24) Arterial Blood Oxygen Saturation 91.1 % (90-95) Arterial Blood Base Excess 0.5 mEq/L (-9-1.8) Arterial Blood Gas Delivery 2 L Alonzo Test POS (POS) Last 24 Hours Test 03/07/17 05:20 03/07/17 05:27 White Blood Count 7.48 K/uL Red Blood Count 3.05 M/uL Hemoglobin 9.1 g/dL Hematocrit 27.3 % Mean Corpuscular Volume 89.5 fL Mean Corpuscular Hemoglobin 29.8 pg Mean Corpuscular Hemoglobin Concent 33.3 g/dl Platelet Count 140 K/uL Mean Platelet Volume 9.4 fL Neutrophils (%) (Auto) 76.3 % Lymphocytes (%) (Auto) 11.8 % Monocytes (%) (Auto) 8.4 % Eosinophils (%) (Auto) 3.3 % Basophils (%) (Auto) 0.1 % Neutrophils # (Auto) 5.70 K/uL Lymphocytes # (Auto) 0.88 K/uL Monocytes # (Auto) 0.63 K/uL Eosinophils # (Auto) 0.25 K/uL Basophils # (Auto) 0.01 K/uL RDW Standard Deviation 43.3 fL RDW Coefficient of Variation 13.3 % Immature Granulocyte % (Auto) 0.1 % Immature Granulocyte # (Auto) 0.01 K/uL Sodium Level 133 mmol/L Potassium Level 3.7 mmol/L Chloride Level 99 mmol/L Carbon Dioxide Level 28 mmol/L Anion Gap 6.0 mmol/L Blood Urea Nitrogen 13 mg/dl Creatinine 0.72 mg/dl Est Creatinine Clear Calc Drug Dose 60.0 ml/min Estimated GFR () 94.9 Estimated GFR (Non- 81.9 BUN/Creatinine Ratio 17.6 Random Glucose 91 mg/dl Calcium Level 7.8 mg/dl Arterial Blood pH 7.48 Arterial Blood Partial Pressure CO2 33 mmHg Arterial Blood Partial Pressure O2 63 mm/Hg Arterial Blood HCO3 24 mmol/L Arterial Blood Oxygen Saturation 91.1 % Arterial Blood Base Excess 0.5 mEq/L Arterial Blood Gas Delivery 2 L Aolnzo Test POS (Prema Waddell PA-C) Assessment and Plan 76 y/o female s/p right total knee arthroplasty with Dr. Lara on 03/04 for medical management. -Pain management, DVT prophylaxis, and PT/OT as per primary team Metabolic encephalopathy secondary to hypercarbia Acute hypoxic respiratory failure likely secondary to severe NANI -pt failed 2 step--> needs 2 liters of O2 continuous -appointment made for a follow up sleep study with pulmonary for sleep study HTN--BP stable -Continue metoprolol XL 100 mg daily, doxazosin 4 mg HS -Continue Losartan 100 mg daily -Resume HCTZ Acute blood loss anemia-Hgb stable at 9.1 HLD -Continue simvastatin 20 mg PO qd Hyperthyroidism -Continue methimazole 5 mg PO qd Restless leg syndrome -Continue Mirapex 0.25 mg PO qhs Code Status -Level I, FULL RESUSCITATION STATUS Stable for d/c with oxygen from a medical standpoint thank you This chart was completed in part utilizing [id number] Speech Voice Recognition software. Attempts were made to minimize the grammatical errors, random word insertions, pronoun errors and incomplete sentences. Any formal questions or concerns about the content, text or information contained within the body of this dictation should be directly addressed to the provider for clarification. (Prema Waddell PA-C) History Physician Middle School Coach Supervision Note: I interviewed and examined the patient. Discussed with ADAIR Waddell and agree with findings and plan as documented in the note. Any exceptions or clarifications are listed here: Patient feeling well but is tired. Her overnight oximetry results were reviewed with her and shows severe sleep apnea with a manjit pulse ox of 64%. Her longest continuous desaturation event less than 88% was for 23 minutes. She also failed her oximetry with exercise, she desaturated to 82% with ambulation. VSS Morbidly obese, NAD RRR normal S1 and S2 Clear to auscultation bilaterally, breathing unlabored, no wheezes crackles or rhonchi Abdomen soft nontender positive bowel sounds, morbidly obese Extremities-right knee in brace, no edema 76-year-old female here status post right TKA with history of hypertension, hyperthyroidism, restless leg syndrome, hyperlipidemia. Required BiPAP nocturnally for newly diagnosed NANI. Is also having acute hypoxemic respiratory failure well awake. This likely secondary to atelectasis and may be some component of restrictive lung disease due to body habitus. She will need formal outpatient pulmonary function tests and sleep study. -Follow up with pulmonology/sleep medicine as scheduled -Continue this O2 via nasal cannula and follow up with primary care physician as well as -Postoperative management as per orthopedics, pain control, DVT prophylaxis, recommend no opioids at all and this was stressed with the patient has this could worsen her hypoxia -Restart all antihypertensives -Stable for discharge Documented By: Ana Winn (Ana Winn MD)
--- NOTE | 2017-03-07 11:07 | Discharge Summary ---
Discharge Summary Date of Service Mar 06, 2017. Discharge Summary Admission Date: Mar 04, 2017 at 06:30 Discharge Date: Mar 06, 2017 Discharge Disposition: Home with services Principal Diagnosis: DJD right knee Procedures: Right Total Knee Arthroplasty Consultations: Medicine consultation Pending Studies/Follow-Up: Follow up with Dr. Lara as scheduled approximately 2 weeks after surgery. Medication Reconciliation New Medications: Oxycodone/Acetaminophen 5MG/325MG (Percocet 5MG/325MG) Tab 1-2 TABLETS PO Q4H PRN for Pain, #30 TAB PAIN Docusate Sodium (Docusate Sodium) 100 Mg Cap 100 MG PO BID for 30 Days, #60 CAP Enoxaparin (Lovenox) 30 Mg/0.3 Ml Inj 30 MG SQ Q12H for 28 Days Tramadol HCl (Tramadol HCl) 50 Mg Tab 50-100 MG PO Q4H PRN for Pain, #30 TAB 0 Refills Continued Medications: Cholecalciferol (Vitamin D) 1,000 Inter.unit Tab 2000 UNIT PO BID Doxazosin Mesylate (Doxazosin Mesylate) 4 Mg Tab 1 TAB PO QPM for 90 Days, TAB 3 Refills Hydrochlorothiazide (Hctz) 25 Mg Tab 25 MG PO QAM, TAB Losartan Potassium (Cozaar) 100 Mg Tab 100 MG PO QAM, TAB Methimazole (Methimazole ) 5 Mg Tab 5 MG PO QAM Metoprolol Succ (Toprol Xl) (Toprol-Xl ) 100 Mg Tabcr 100 MG PO DAILY AT NOON Pramipexole Dihydrochloride (Pramipexole Dihydrochlori) 0.5 Mg Tab 0.25 MG PO QPM DOSE OF 0.25MG Simvastatin (Zocor) 20 Mg Tab 20 MG PO HS, TAB [Areds] () 1 CAP PO BID Hospital Course Patient was admitted to the [facility] on 03/04/17 after undergoing an elective right total knee arthroplasty. The procedure was done with general anesthesia and a peripheral nerve block. She tolerated the procedure well without intra-operative complications. She was given 2gm IV Ancef for surgical prophylaxis which was continued for 24 hours after surgery. She was allowed out of bed, weight bear as tolerated with the assistance of a walker. Her post operative x-rays were consistent with a total knee arthroplasty. After surgery she became very sleepy and was hard to arouse without a sternal rub. She was seen in consultation by medicine. She was placed on a BiPAP machine during her hospital stay. She continue to desaturate into the 80's thru the night and required a CPAP while she slept. Prior to her admission she had no diagnosis of sleep apnea but did admit to snoring. She did not develop any post operative nausea and tolerated a regular diet. She did well out of bed with physical therapy and ambulated with 1 assist and a walker. On POD 2 her knee immobilizer was discontinued, and her dressing was changed. Her incision was clean, dry and intact. She did develop acute blood loss anemia post operatively and did not require any blood transfusions. Her pain was well controlled with oral pain medication. Medicine determined that she would require a nocturnal pulse ox study and morning ABG's which determined that she needed at home O2 and an outpatient sleep study for severe sleep apnea. She was evaluated by psychosocial rehabilitation counselor and was accepted for discharge to her home with home health from [facility]. They arranged for home oxygen. On POD 3 she was safe for discharge to her home on 03/07/17 and was discharged in stable condition. Total time spent on discharge = This includes examination of the patient, discharge planning, medication reconciliation, and communication with other providers. Discharge Instructions Discharge Instructions Date of Service Mar 05, 2017. Admission Reason for Admission: Right Knee Osteoarthritis Discharge Discharge Diagnosis / Problem: DJD right knee Discharge Goals Goal(s): Decrease discomfort, Improve function, Increase independence Activity Recommendations Activity Limitations: per Instructions/Follow-up section Weightbearing Status: Left weightbearing (as tolerated), Right weightbearing ( as tolerated) . Instructions / Follow-Up Instructions / Follow-Up New Medicine: * You will likely be taking one or more of these medications: 1. Lovenox - One injection every 12 hours x 4 weeks; after completion of the Lovenox you will be placed on Aspirin. 2. Percocet - Take, as directed, when you need it, every four to six hours to control your pain. 3. Tramadol - take, as directed, when you need it, every 4-6 hours to control your pain. 4. Colace & Senokot - Take to prevent constipation which can be caused by narcotics. These can be bought [id number] at the pharmacy * The most common side effects of pain medicine and iron are nausea and constipation. If nausea or constipation is too much of a problem or if you have any questions about your new medicines or doses, call [facility] at . We will try to help you manage these issues. VERY IMPORTANT TO READ AND REVIEW" Blood Clots and Blood Thinning Medicine: * You are given Lovenox during the immediate post-operative period to lessen the risk of blood clots forming in your legs and/or lungs. Physical Therapy: * Do your physical therapy at home. These are the exercises you learned while in the hospital (quad sets, leg raises, calf pumps, gluteal squeezes, knee bending, and heel props.) You should do these exercises 3-4 times per day. * You will either go to inpatient rehab ([facility]), home with Home Therapy and nursing or home with outpatient rehab. You should do rehab with the therapist 2-3 times per week. You should do therapy on your own daily. * You may bear full weight on your leg with crutches or walker unless otherwise advised. Home Exercise: * You were shown a series of exercises (heel props, heel slides, etc.) in the hospital. Do these exercises three to four times each day including the exercises you were shown in physical therapy. Walking: * You may be up for short periods of time. Standing and walking for 1-2 hours at a time is usually okay. You should not stand or walk for excessive periods of time as this may cause increased pain and swelling. SELF CARE INSTRUCTIONS AFTER TOTAL KNEE REPLACEMENT A. You may need to continue a physical therapy program after discharge from the hospital. There are several options available to you. Your doctor will assist you in selecting the best one for you. 1. An out-patient facility 2 to 3 times a week for therapy or home therapy. 2. Continue working on all exercises taught to you in the hospital. Your goals should be to increase bending of your knee to 90 degrees and beyond and to fully straighten your knee. B. Your therapist will notify you when you are able to progress from a walker to a cane. C. Wear TEDS as much as possible.~ They may be removed at night for laundering. D. Do not place a pillow behind your knee when resting. A pillow at your ankle is okay. E. Ice your knee 15-20 minutes every 2-3 hours and elevate it above the level of your heart. F. You may shower on the fourth day after surgery using regular soap and water. Do not submerge until the wound is completely healed (approximately 2 weeks ). Until the fourth day after surgery, cover the incision/bandage with a bag or plastic wrap. G. Anyone who is touching your surgical incision area should wash their hands and wear gloves. H. Keep your incision covered with gauze pads under the ZENA hose until it is dry. VERY IMPORTANT TO READ AND REVIEW A. YOU WILL BE GIVEN AN ORDER AT DISCHARGE FOR PT/INR (BLOOD WORK). PLEASE HAVE THIS DONE INSTRUCTED. PLEASE CALL OUR OFFICE AFTER YOUR BLOODWORK IS COMPLETE SO WE CAN TRACK YOUR RESULTS. IF YOU ARE GOING TO OUTPATIENT PHYSICAL THERAPY, YOU WILL NEED TO GO TO OUTPATIENT TESTING TO HAVE IT DRAWN. B. There are a few signs you need to watch for after you are home. Call [facility] if you notice any of the followin. Increased severe knee pain. Some pain is expected especially when you exercise. 2. Increased swelling in your leg or knee; pain or swelling of the calf muscle in either lower leg. 3. Any fluid drainage from the incision. 4. Shortness of breath or chest pain. 5. Numbness and tingling in the surgical extremity C. Please call [facility] at if you have any concerns or questions about your operation or recovery. The doctor or his nurse will return your call promptly. D. Do not have any elective dental work or other elective procedures done for 6 weeks after your knee replacement. When you have any invasive procedure (dental cleaning, extraction, colonoscopy etc) performed, you will need to take antibiotics to prevent infection from developing in your artificial joint. Tell your other health care providers you have an artificial joint. My office will supply you with further information and the antibiotics. Call your doctor if: * Temperature above 101 degrees F. * Pain not relieved by pain medicine ordered. * Increased drainage or redness from incision. * Notify your doctor with any questions or concerns. Follow-up Visit: You will follow-up with Dr. Lara 10-14 days after surgery. The office number is . You have a follow up appointment with Dr. Lara on 03/18/17 at 2:45 p.m. You have an outpatient physical therapy appointment on 03/24/17 at 10:30 a.m. Avoid all tobacco products. If you need help to stop smoking, call [facility] QUIT[facility] at . This is a free call. Current Hospital Diet Patient's current hospital diet: Regular Diet Discharge Diet Recommended Diet: Regular Diet Procedures Procedures Performed: Right total knee arthroplasty Pending Studies Studies pending at discharge: no Medical Emergencies . Who to Call and When: Medical Emergencies: If at any time you feel your situation is an emergency, please call 911 immediately. . Non-Emergent Contact Non-Emergency issues call your: Surgeon Call Non-Emergent contact if: temperature is above 101, your pain is not controlled, your pain is worsening, your pain is concerning you, wound has increased drainage, you have any medication questions . "Provider Documentation" section prepared by Tammy Hernández. Use home Oxygen as instructed by the Hospitalist service. Arrange for outpatient sleep study as recommended by the Hospitalist service. . VTE Core Measure Inpt VTE Proph given/why not?: Enoxaparin (Lovenox)SQ (30mg twice daily x 4 weeks), Luis [facility] Drug Monitoring Program Search Results: patient reviewed within database, no issues identified
[2017-03-07 14:34] VITALS: BP 169/99; PULSE 75; TEMP 37; O2SAT 94
== END 2017-03-07 16:01 | disposition home health service (06) | DRG 469 ==
LOC: ENRESERVTM → ENRESERVDT → C.ACU 05:11 → C.3E 06:30
PROVIDERS: ADMIT Physical Medicine & Rehabilitation Sports Medicine; ATTEND Physical Medicine & Rehabilitation Sports Medicine
PROC: 0SRC0J9 Replacement of Right Knee Joint with Synthetic Substitute, Cemented, Open Approach (ICD-10-PCS; principal; 2017-03-04 07:00)
DX: M17.11 Unilateral primary osteoarthritis, right knee (principal); G93.41 Metabolic encephalopathy; J96.01 Acute respiratory failure with hypoxia; J96.02 Acute respiratory failure with hypercapnia; D62 Acute posthemorrhagic anemia; K21.9 Gastro-esophageal reflux disease without esophagitis; E78.5 Hyperlipidemia, unspecified; M81.0 Age-related osteoporosis without current pathological fracture; I10 Essential (primary) hypertension; E66.01 Morbid (severe) obesity due to excess calories; G25.81 Restless legs syndrome; E05.90 Thyrotoxicosis, unspecified without thyrotoxic crisis or storm; G47.33 Obstructive sleep apnea (adult) (pediatric); Z96.652 Presence of left artificial knee joint; E78.00 Pure hypercholesterolemia, unspecified; H91.93 Unspecified hearing loss, bilateral; H35.3190 Nonexudative age-related macular degeneration, unspecified eye, stage unspecified; E55.9 Vitamin D deficiency, unspecified; Z68.33 Body mass index [BMI] 33.0-33.9, adult; Z86.59 Personal history of other mental and behavioral disorders; Z99.81 Dependence on supplemental oxygen; Z79.82 Long term (current) use of aspirin; Z79.899 Other long term (current) drug therapy

== ENCOUNTER → 2017-03-11 | Outpatient (CLI) | payer BC, OTHER ==
[~2017-03-11] MED LIST changes: +CLC100 PO; +LVNIS30 SQ; +OXYC-57 PO; +ULT50X PO
--- NOTE | 2017-03-11 11:54 | DIAGNOSTIC IMAGING REPORT ---
RIGHT KNEE 1 OR 2 VIEWS CLINICAL HISTORY: RIGHT KNEE PAIN Right postoperative evaluation COMPARISON: None. DISCUSSION: Total right knee replacement. Good contact between prosthetic and underlying bone. Expected soft tissue postoperative change IMPRESSION: Anatomic alignment status post total joint replacement. Electronically signed by: Matt Felix M.D. 03/11/2017 11:53 AM Dictated Date/Time: 03/11/2017 11:52 AM
== END | disposition home or self-care (01) ==
LOC: C.RDSM 11:17
PROVIDERS: ATTEND Physician Assistant
DX: Z96.651 Presence of right artificial knee joint (principal); Z91.81 History of falling

== ENCOUNTER → 2017-04-25 | Outpatient (CLI) | payer BC ==
[~2017-04-25] VITALS: Ht 149.9 cm; Wt 77.2 kg
[2017-04-25 14:15] VITALS: BP 152/89; PULSE 66; Ht 149.9 cm; Wt 77.2 kg
== END | disposition home or self-care (01) ==
LOC: C.NEUR 13:15
PROVIDERS: ATTEND Physician Assistant
DX: R06.81 Apnea, not elsewhere classified (principal); R06.83 Snoring

== ENCOUNTER → 2017-05-15 | Outpatient (CLI) | payer BC ==
[~2017-05-15] MED LIST changes: -METO100T44 PO; +METO1TAB69 PO
--- NOTE | 2017-05-15 16:20 | MAMMOGRAPHY REPORT ---
BILATERAL DIGITAL SCREENING MAMMOGRAM WITH CAD: 05/15/2017 CLINICAL HISTORY: Routine screening. Patient has no complaints. TECHNIQUE: Current study was also evaluated with a Computer Aided Detection (CAD) system. COMPARISON: Comparison is made to exams dated: 05/14/2016 mammogram and 05/10/2015 mammogram - [facility]. Also outside prior mammograms dated 05/06/2014, 04/12/2013, 04/02/2012, 04/01/2011. BREAST COMPOSITION: There are scattered areas of fibroglandular density in both breasts. FINDINGS: No suspicious masses, calcifications, or areas of architectural distortion are noted in ei ther breast. There has been no significant interval change compared to prior exams. Bilateral benign -appearing calcifications are not significantly changed. IMPRESSION: ACR BI-RADS CATEGORY 2: BENIGN There is no mammographic evidence of malignancy. A 1 year screening mammogram is recommended. The pa tient will receive written notification of the results. Approximately 10% of breast cancers are not detected with mammography. A negative mammographic report should not delay biopsy if a clinically suggestive mass is present. Shantel Holloway M.D. ah/:05/15/2017 15:39:30 Glaze Wiper: Sabina WALTON(Mireya)(Jaqui)(BD), [facility] letter sent: Normal 1/2 BI-RADS Code: ACR BI-RADS Category 2: Benign
== END | disposition home or self-care (01) ==
LOC: C.MAMM 11:07
PROVIDERS: ATTEND Family Medicine
DX: Z12.31 Encounter for screening mammogram for malignant neoplasm of breast (principal)

== ENCOUNTER → 2017-06-04 | Outpatient (CLI) | payer BC ==
--- NOTE | 2017-06-05 06:22 | PAP/PSG TECHNICIAN REPORT ---
[facility] Steward/Stewardess Economy Class Polysomnogram Report Study name: None Report date: 06/05/2017 Study date: 06/04/2017 Referring Physician: Rossi Centeno PA-C, PA-C Name: TRUDI GONZALEZ Interpreting Physician: German Barksdale M.D. Date of : 1940 Steward/Stewardess Economy Class: EDDIE Merino. Sex: Female Age: 76 StudyType: PSG Weight: 170 lbs Height: 76 years, Height 4' 11" Neck Circum: 17 inches BMI: 34.33 Medications: Doxazosin 4 mg, HCTZ 25 mg, Losartan Potassium 100 mg, Methimazole 5 mg, Metoprolol Tartrate 100 mg, Pramipexole Dihydrochloride 0.5 mg, Preservision, Simvastatin 20 mg, Vitamin D 3 1000 units Patient History 76 yr. old female here for a possible split night sleep study in room 6. Patient failed a home oximeter test, and had difficulty waking from anesthesia. She always feels tired. Patients [place] Sleepiness Scale Score is 3/24. Parameters Monitored NPSG: E1-M2, E2-M1, Fp1-M2, Fp2-M1, F3-M2, F4-M2, F4-M1, C3-M2, C4-M2, C4-M1, O1-M2, O2-M2, O2-M1, T3-M2, T4-M1, P3-M2, P4-M1, CHIN1, CHIN2, HR, EKG, Legs, PFLOW, SNOR, FLOW, CFLOW, Tidal Volume, THOR, ABDO, SpO2, PLTH, CPRESS, ETCO2 Wave, ETCO2, pH Sleep Architecture Sleep Stages Time at Lights Off 9:28:53 PM STAGES Time (min.) TST (%) Time at Lights On 5:26:53 AM Wake 63.5 -- Total Recording Time (TRT) 476.50 min. N1 54.5 13 Total Sleep Period (TSP) 466.0 min. N2 208.5 50 Total Sleep Time (TST) 413.0min. N3 86.0 21 Awake Time 63.5 min. REM 64.0 15 Wake after Sleep Onset 54.5 min. Sleep Efficiency (SE) 87 % Sleep Onset Latency (ABDULLAHI) 10.5 min. Number of Stage 1 Shifts None Awakenings 43 Stage Changes 187 Number of REM periods 6 REM 64.0 15 REM Latency 154.0 min. NREM 349.0 85 Body Position Analysis Supine Right Left Side Prone Vertical Total Sleep Time (min.) 17.4 290.0 108.5 398.50 0.0 0.1 Total Sleep Time (%) 4% 70% 26% 96 0% N/A% Total Sleep Time REM (min.) 0.0 29.0 35.0 None 0.0 0.0 Total Sleep Time NREM (min.) 14.5 261.0 73.5 None 0.0 0.0 Intermittent Wake (min.) 2.9 52.8 7.7 None 0.0 0.1 Total Sleep Period (%) 4% None None None None None Arousals Myoclonus (PLM) * Events Count Index Events Count Index Spontaneous 4 1 Events Awake (PLMW) 118 111.5 Respiratory 16 2.3 Events Asleep w/ Arousal (PLMA) 56 8.1 PLM 54 8 Events Asleep w/o Arousal (PLMS) 258 37.5 Snoring 11 2 Total Asleep 314 45.6 Total 82 12 Total 432 54 Respiratory Analysis * CA OA MA CH H RERA Total Count 0 2 0 0 92 2 94 Index 0.0 0.3 0.0 0 13.4 0 13.9 Mean Duration 0.0 12.7 0.0 0.00 21.2 26.4 21.2 Longest Duration 0.0 12.8 0.0 0.00 0.0 30.9 56.3 Respiratory Event Summary Total Supine ~Supine Right Left Prone REM NREM Apneas Count 2 1 1 0 1 N/A 0 2 Index 0.3 4 0 0.0 0.6 N/A 0 0 Hypopneas (4% Desat) Count 92 7 85 52 33 N/A 18 74 Index 13.4 29.0 13 10.8 18.2 N/A 16.9 12.7 Apneas & All Hypopneas Count 94 8 86 52 34 N/A 18 76 Index 13.7 33 13 11 19 N/A 16.9 13.1 Respiratory Events ([employer]+All Hyp+RERA) Count 94 8 88 53 35 N/A 18 76 Index 13.9 33 13 11.0 19.4 N/A 17.8 13.2 Respiratory Related Arousal Count 16 8 15 10 5 N/A 1 15 Index 2.3 4 2 2 3 N/A 1 3 Snoring Analysis Supine Right Left Prone REM NREM Total Snore duration 107.8 min Snores count 130 2,249 1,143 N/A 538 2,984 3,522 Snore mean duration 1.8 Sec Snores index 538 465 632 N/A 504.4 513.0 511.7 TST with snoring (%) 26.1% Desaturation Event Summary: Minimum %SpO2 Event Count Mean/Min/Max Duration(sec.) Desaturation Index % Time In Bed > 90 123 25.2 / 9.8 / 60.0 17.4 90.3 86 - 90 8 32.5 / 14.5 / 53.5 10.8 9.4 81 - 85 1 26.8 / 26.8 / 26.8 48.5 0.3 76 - 80 0 N/A 0.0 0.0 71 - 75 0 N/A 0.0 0.0 66 - 70 0 N/A 0.0 0.0 61 - 65 0 N/A 0.0 0.0 56 - 60 0 N/A 0.0 0.0 51 - 55 0 N/A 0.0 0.0 < 50 0 N/A 0.0 0.0 Total REM NREM Awake <50% 0.0 min. 0.0 min. 0.0 min. 0.0 min. 51 - 60% 0.0 min. 0.0 min. 0.0 min. 0.0 min. 61 - 70% 0.0 min. 0.0 min. 0.0 min. 0.0 min. 71 - 80% 0.2 min. 0.0 min. 0.0 min. 0.2 min. 81 - 90% 45.5 min. 17.3 min. 20.6 min. 7.7 min. 91 - 100% 425.0 min. 46.7 min. 328.0 min. 50.4 min. Average 93 92 93 93 Minimum SpO2 80 82 86 80 Desaturation Event Index 15.7 21.6 13.8 21.7 # Desat. Events below 89% 22 12 3 7 Time(%) with Saturation below 89% 1.8 1.1 0.2 0.5 Time(min.) with Saturation below 89% 8.4 5.2 0.8 2.3 Time (mins) REM (mins) NREM (mins) % of TST SpO2 Below 90% 55 18 N37 4.3 SpO2 Below 88% 7 0 0 1 Heart Rate Analysis Min (bpm) Max (bpm) Average (bpm) Awake 51 250 72 NREM 50 85 59 REM 55 127 61 Overall 50 127 59 Supplemental O2 Values Minimum O2 level: None Value Start Time End Time Steward/Stewardess Economy Class Comments Mrs. Gonzalez slept in the right, left, and supine positions. No cardiac arrhythmia or PLMs noted. No bruxism noted. Snoring was noted and scored as a 4 on a scale of 0 through 5. (0=no snoring, 5=snoring loud enough to be heard through a closed door or down the de la cru[address] way) Mrs. Gonzalez awoke to use the restroom once during the night. Mrs. Gonzalez stated, that was a normal night. The final report will be interpreted and signed by a sleep physician. The completed physician report will then be placed in the patient medical record. Therapy (cm H2O) 0 TIB (min.) 476.5 TST (min.) 413.0 Sleep Onset (min.) 10.5 REM Onset From Sleep (min.) 154.0 Sleep Efficiency % 87 Wakefulness (%) 13 Wakefulness (min.) 63.5 NREM 1 (%) 13 NREM 1 (min.) 54.5 NREM 2 (%) 50 NREM 2 (min.) 208.5 NREM 3 (%) 21 NREM 3 (min.) 86.0 REM (%) 15 REM (min.) 64.0 # Arousals 82 Arousal Index 12 # Snore 3,522 Snore Index 511.7 AHI 13.7 AHI Supine 33 AHI Non-Supine 13 NREM AHI 13.1 REM AHI 16.9 RDI 13.9 # Obstructive Apnea 2 # Central Apnea 0 # Mixed Apnea 0 # Hypopneas 92 RERAs 2 Total Respiratory Events 115 Time Below SpO2 89% (min.) 6.0 Mean NREM SpO2 (%) 93 Mean REM SpO2 (%) 92 Mean Sleep SpO2 (%) 93 Min NREM SpO2 (%) 86 Min REM SpO2 (%) 82 Position Supine (min.) 17.4 Position Non-supine (min.) 398.5 LM Index Sleep 45.6 LM Index NREM 45.9 LM Index REM 44.1 Mean Heart Rate (bpm) 59 Min Heart Rate (bpm) 50
--- NOTE | 2017-06-05 09:57 | POLYSOMNOGRAPH REPORT ---
CLINICAL DATA: A 76-year-old female with a BMI of 34.[address] Saleh and Rossi Centeno for a sleep study. She had a home oximeter test which showed nocturnal hypoxemia. She has had difficulty waking from anesthesia. She always feels tired. Her Lu[place] Sleepiness Score was 3/24. SLEEP ARCHITECTURE: Total recording time was 476.5 minutes. Total sleep period was 466 minutes. Total sleep time was 413 minutes divided between 349 minutes of non-REM sleep and 64 minutes of REM sleep. Sleep onset latency was 10.5 minutes. REM latency was slightly delayed at 154 minutes. Sleep efficiency was 87%. Wake after sleep onset was 54.5 minutes. Sleep consisted of stage N1 13%, stage N2 50%, stage N3 21%, and REM 15%. AROUSAL DATA: 82 arousals were recorded for an index of 12 per hour. 54 were due to PLM events. PLM DATA: 314 limb movements during sleep were noted for an index of 45.6 per hour with arousal index of 8.1 per hour. RESPIRATORY DATA: Mild sleep apnea was documented. The AHI was 13.7. There were 2 obstructive apneic episodes. The longest apneic episode was 12.8 seconds. There were 92 hypopneas with a mean duration of 21.2 seconds. OXIMETRY DATA: Mild nocturnal hypoxemia was seen. Oxygen manjit was 82% during REM. The mean saturation was 93%. Time below 88% was 7 minutes. EKG: Heart rates ranged from 50-127 beats per minute. No arrhythmias were noted. GOVERNMENT SERVICES PROFESSIONAL'S COMMENTS: The patient slept in the right, left, and supine positions. Snoring was severe, rated 4 on a scale of 1 through 5. The patient did not achieve split night criteria, so a split night study could not be performed. IMPRESSION: 1. Mild sleep apnea/hypopnea with an AHI of 13.7 with nocturnal hypoxemia. 2. Very frequent limb movements during sleep consistent with periodic limb movement disorder. RECOMMENDATIONS: The patient may benefit from a repeat sleep study with CPAP, use of auto CPAP, or use of an oral appliance. Clinical correlation is needed. [facility]
== END | disposition home or self-care (01) ==
LOC: C.NEUR 21:00
PROVIDERS: ATTEND Physician Assistant
DX: G47.30 Sleep apnea, unspecified (principal); G47.61 Periodic limb movement disorder; R06.83 Snoring

== ENCOUNTER → 2017-06-16 | Outpatient (CLI) | payer BC ==
[~2017-06-16] VITALS: Ht 149.9 cm; Wt 78.2 kg
[2017-06-16 14:30] VITALS: BP 137/90; PULSE 66; Ht 149.9 cm; Wt 78.2 kg
== END | disposition home or self-care (01) ==
LOC: C.NEUR 14:10
PROVIDERS: ATTEND Physician Assistant
DX: G47.30 Sleep apnea, unspecified (principal); G25.81 Restless legs syndrome

== ENCOUNTER → 2017-07-22 | Outpatient (CLI) | payer BC ==
--- NOTE | 2017-07-23 05:13 | PAP/PSG TECHNICIAN REPORT ---
[facility] Clinical Care Leader Polysomnogram Report Study name: None Report date: 07/23/2017 Study date: 07/22/2017 Referring Physician: Rossi Centeno PA-C, PA-C Name: TRUDI GONZALEZ Interpreting Physician: German Barksdale M.D. Date of : 1940 Clinical Care Leader: EDDIE Schroeder. Sex: Female Age: 76 StudyType: PSG PAP Weight: 172.2 lbs Height: 76 years, Height 4' 11" Neck Circum:17inches BMI: 34.78 Medications: Doxazosin Mesylate 4mg, Eszopiclone 2mg(for tonight right before getting into bed), HCTZ 25mg, Losartan Potassium 100mg, Methimazole 5mg, Metoprolol Tartrate 100mg, Pramipexole Dihydrochloride 0.5 mg, Simvastatin 20mg, Vit D3 Patient History Study started on room air with [id number] in room #8. 76 yr old female here tonight for a new titration study. She had a diagnostic psg here on 06/04/17 that had an AHI of 13.7 and frequent limb movements. Neck circ=17inches. Parameters Monitored NPSG: E1-M2, E2-M1, Fp1-M2, Fp2-M1, F3-M2, F4-M2, F4-M1, C3-M2, C4-M2, C4-M1, O1-M2, O2-M2, O2-M1, T3-M2, T4-M1, P3-M2, P4-M1, CHIN1, CHIN2, HR, EKG, Legs, PFLOW, SNOR, FLOW, CFLOW, Tidal Volume, THOR, ABDO, SpO2, PLTH, CPRESS, ETCO2 Wave, ETCO2, pH Sleep Architecture Sleep Stages Time at Lights Off 9:50:16 PM STAGES Time (min.) TST (%) Time at Lights On 5:06:46 AM Wake 93.0 -- Total Recording Time (TRT) 436.50 min. N1 23.5 7 Total Sleep Period (TSP) 424.5 min. N2 215.0 63 Total Sleep Time (TST) 343.5min. N3 73.5 21 Awake Time 93.0 min. REM 31.5 9 Wake after Sleep Onset 87.0 min. Sleep Efficiency (SE) 79 % Sleep Onset Latency (ABDULLAHI) 6.0 min. Number of Stage 1 Shifts None Awakenings 24 Stage Changes 120 Number of REM periods 14 REM 31.5 9 REM Latency 113.0 min. NREM 312.0 91 Body Position Analysis Supine Right Left Side Prone Vertical Total Sleep Time (min.) 3.4 247.0 96.5 343.50 0.0 0.0 Total Sleep Time (%) 0% 72% 28% 100 0% N/A% Total Sleep Time REM (min.) 0.0 15.0 16.5 None 0.0 0.0 Total Sleep Time NREM (min.) 0.0 232.0 80.0 None 0.0 0.0 Intermittent Wake (min.) 3.4 72.9 16.7 None 0.0 0.0 Total Sleep Period (%) 0% None None None None None Arousals Myoclonus (PLM) * Events Count Index Events Count Index Spontaneous 15 3 Events Awake (PLMW) 211 136.1 Respiratory 15 2.8 Events Asleep w/ Arousal (PLMA) 35 6.1 PLM 33 6 Events Asleep w/o Arousal (PLMS) 422 73.7 Snoring 4 1 Total Asleep 457 79.8 Total 67 12 Total 668 92 Respiratory Analysis * CA OA MA CH H RERA Total Count 0 3 0 0 44 0 47 Index 0.0 0.5 0.0 0 7.7 0 8.2 Mean Duration 0.0 21.5 0.0 0.00 25.7 0.0 25.4 Longest Duration 0.0 24.2 0.0 0.00 0.0 0.0 83.5 Respiratory Event Summary Total Supine ~Supine Right Left Prone REM NREM Apneas Count 3 N/A 3 1 2 N/A 1 2 Index 0.5 N/A 1 0.2 1.2 N/A 2 0 Hypopneas (4% Desat) Count 44 N/A 44 22 22 N/A 9 35 Index 7.7 N/A 8 5.3 13.7 N/A 17.1 6.7 Apneas & All Hypopneas Count 47 N/A 47 23 24 N/A 10 37 Index 8.2 N/A 8 6 15 N/A 19.0 7.1 Respiratory Events (Dietary Aide+All Hyp+RERA) Count 47 N/A 47 23 24 N/A 10 37 Index 8.2 N/A 8 5.6 14.9 N/A 19.0 7.1 Respiratory Related Arousal Count 15 N/A 16 6 10 N/A 5 11 Index 2.8 N/A 3 1 6 N/A 10 2 Snoring Analysis Supine Right Left Prone REM NREM Total Snore duration 10.0 min Snores count N/A 287 100 N/A 54 333 387 Snore mean duration 1.5 Sec Snores index N/A 70 62 N/A 102.9 64.0 67.6 TST with snoring (%) 2.9% Desaturation Event Summary: Minimum %SpO2 Event Count Mean/Min/Max Duration(sec.) Desaturation Index % Time In Bed > 90 69 25.0 / 10.3 / 54.3 12.5 78.6 86 - 90 9 26.1 / 9.5 / 50.8 6.1 20.9 81 - 85 0 N/A 0.0 0.5 76 - 80 0 N/A 0.0 0.0 71 - 75 0 N/A 0.0 0.0 66 - 70 0 N/A 0.0 0.0 61 - 65 0 N/A 0.0 0.0 56 - 60 0 N/A 0.0 0.0 51 - 55 0 N/A 0.0 0.0 < 50 0 N/A 0.0 0.0 Total REM NREM Awake <50% 0.0 min. 0.0 min. 0.0 min. 0.0 min. 51 - 60% 0.0 min. 0.0 min. 0.0 min. 0.0 min. 61 - 70% 0.0 min. 0.0 min. 0.0 min. 0.0 min. 71 - 80% 0.0 min. 0.0 min. 0.0 min. 0.0 min. 81 - 90% 90.0 min. 8.1 min. 64.9 min. 17.1 min. 91 - 100% 330.0 min. 23.4 min. 247.0 min. 59.6 min. Average 92 92 92 92 Minimum SpO2 83 85 87 83 Desaturation Event Index 9.8 26.7 7.7 12.9 # Desat. Events below 89% 14 4 6 4 Time(%) with Saturation below 89% 2.4 0.4 0.8 1.3 Time(min.) with Saturation below 89% 10.3 1.5 3.3 5.5 Time (mins) REM (mins) NREM (mins) % of TST SpO2 Below 90% 38 10 N28 4.4 SpO2 Below 88% 5 0 0 0 Heart Rate Analysis Min (bpm) Max (bpm) Average (bpm) Awake 47 136 65 NREM 51 127 59 REM 53 71 61 Overall 51 127 59 Supplemental O2 Values Minimum O2 level: None Value Start Time End Time Clinical Care Leader Comments Mrs. Gonzalez slept in the right and left positions. No cardiac arrhythmia noted. PLM's noted. No bruxism noted. CPAP was initiated at +4 CMH2O and up-titrated to an optimal level of +11 CMH2O, which nearly eliminated all respiratory events and snoring. An x-small Quattro Air full face mask by [employer] was used during titration She awoke to use the restroom 1 time during the night. She stated that she slept a little worse than when at home. The final report will be interpreted and signed by a sleep physician. The completed physician report will then be placed in the patient medical record. Therapy Event: Therapy (cm H20) 4 5 6 7 8 9 11 Total Time at Pressure (min.) 19.4 35.9 47.1 63.6 30.8 13.2 226.5 TST at Pressure (min.) 8.9 35.9 43.1 41.6 27.3 13.2 173.5 # Periods 1 1 1 1 1 1 1 Sleep Onset (min.) 6.0 0.0 0.0 0.0 0.0 0.0 0.0 REM Onset (min.) N/A N/A N/A 16.6 25.0 0.0 0.0 Sleep Efficiency % 45 100 91 65 88 100 76 Wakefulness (%) 54.2 0.0 8.5 34.6 11.4 0.0 23.4 Wakefulness (min.) 10.5 0.0 4.0 22.0 3.5 0.0 53.0 NREM 1 (%) 12.9 0.0 5.3 8.7 4.9 15.2 4.2 NREM 1 (min.) 2.5 0.0 2.5 5.5 1.5 2.0 9.5 NREM 2 (%) 32.9 24.8 68.2 54.4 68.3 41.7 47.0 NREM 2 (min.) 6.4 8.9 32.1 34.6 21.0 5.5 106.5 NREM 3 (%) 0.0 75.2 18.0 0.0 0.0 0.0 16.8 NREM 3 (min.) 0.0 27.0 8.5 0.0 0.0 0.0 38.0 REM (%) 0.0 0.0 0.0 2.4 15.5 43.2 8.6 REM (min.) 0.0 0.0 0.0 1.5 4.8 5.7 19.5 # Arousals 6 0 8 19 7 6 21 Arousal Index 40.5 0.0 11.1 27.4 15.4 27.3 7.3 # Snore 11 140 104 32 50 32 18 Snore Index 74.3 234.1 144.6 46.2 109.9 145.5 6.2 AHI 20.3 8.4 9.7 14.4 26.4 27.3 1.4 AHI Supine N/A N/A N/A N/A N/A N/A N/A AHI Non-Supine 20.3 8.4 9.7 14.4 26.4 27.3 1.4 NREM AHI 20.3 8.4 9.7 12.0 21.3 16.0 1.6 REM AHI N/A N/A N/A 80.0 50.2 42.1 0.0 RDI 20.3 8.4 9.7 14.4 26.4 27.3 1.4 # Obstructive 0 0 0 0 1 1 1 # Central Ap 0 0 0 0 0 0 0 # Mixed 0 0 0 0 0 0 0 # Hypopneas 3 5 7 10 11 5 3 RERAS 0 0 0 0 0 0 0 Total Respiratory Events 3 5 7 10 12 6 4 Time Below SpO2 89.00% (min.) 0.3 0.2 0.0 3.1 0.8 0.0 0.4 Mean NREM SpO2 (%) 91 91 91 92 92 94 92 Mean REM SpO2 (%) N/A N/A N/A 90 92 93 92 Mean Sleep SpO2 (%) 91 91 91 92 92 93 92 Min NREM SpO2 (%) 88 88 89 87 88 90 88 Min REM SpO2 (%) N/A N/A N/A 88 85 89 88 Position Supine (min.) 0.0 0.0 0.0 0.0 0.0 0.0 0.0 Position Non-supine (min.) 8.9 35.9 43.1 41.6 27.3 13.2 173.5 LM Index Sleep 60.8 6.7 37.6 96.7 83.5 159.2 95.8 LM Index NREM 60.8 6.7 37.6 95.9 82.6 152.0 92.3 LM Index REM N/A N/A N/A 120.0 87.9 168.6 122.9 Mean Heart Rate (bpm) 64 63 61 59 58 59 58 Min Heart Rate (bpm) 60 58 55 53 52 53 51
--- NOTE | 2017-07-23 09:15 | POLYSOMNOGRAPH REPORT ---
CLINICAL DATA: A 76-year-old female with BMI of 34.8 referred by Rossi Centeno PA-C, for a CPAP titration study. She had a diagnostic sleep study in May 2017, which showed an AHI of 13.7 with frequent limb movements. SLEEP ARCHITECTURE: Total recording time was 436.5 minutes. Total sleep period was 424.5 minutes. Total sleep time was 343.5 minutes divided between 310 minutes of non-REM sleep and 31.5 minutes of REM sleep. Sleep onset latency was 6 minutes. REM latency was 113 minutes. Sleep efficiency was 79%. Wake after sleep onset was elevated at 87 minutes. Sleep consisted of stage N1 7%, stage N2 63%, stage N3 21%, and REM 9%. AROUSAL DATA: Sixty-seven arousals were recorded for an index of 12 per hour. PLM DATA: Significantly elevated limb movements during sleep were noted. There were 457 limb movements during sleep noted for an index of 79.8 per hour with arousal index of 6.1 per hour. RESPIRATORY DATA: The AHI was 8.2. There were 3 obstructive apneic episodes. The longest apneic episode was 24.2 seconds. There were 44 hypopneic episodes. The mean duration of hypopnea was 25.7 seconds. OXIMETRY DATA: Nocturnal hypoxemia was seen. Oxygen manjit was 85%. Mean saturation was 92%. Time below 88% was 5 minutes. EKG: Heart rate ranged from 51-127 beats per minute. No arrhythmias were noted. UNDERGROUND TRUCK OPERATOR'S COMMENTS: The patient slept in the right and left positions. An extra small Quattro full facemask by [employer] was used. The patient was titrated up to her final pressure setting of 11 cm water pressure CPAP. At that pressure setting, she slept for 173.5 minutes with an AHI of 1.4. IMPRESSION: Mild sleep apnea/hypopnea corrected with CPAP 11 cm water pressure, extra small Quattro Air full facemask by [employer]. The patient continued to have significant PLMD inspite of treatment with CPAP. RECOMMENDATIONS: The patient should be started on the above noted treatment regimen and seen back in followup within 90 days to document efficacy and compliance. [facility]
== END | disposition home or self-care (01) ==
LOC: C.NEUR 21:00
PROVIDERS: ATTEND Physician Assistant
DX: G47.30 Sleep apnea, unspecified (principal)

== ENCOUNTER → 2017-07-31 | Outpatient (CLI) | payer BC ==
[~2017-07-31] VITALS: Ht 149.9 cm; Wt 78.4 kg
[2017-07-31 13:54] VITALS: BP 158/61; PULSE 60; Ht 149.9 cm; Wt 78.4 kg
== END | disposition home or self-care (01) ==
LOC: C.NEUR 12:58
PROVIDERS: ATTEND Physician Assistant
DX: G47.30 Sleep apnea, unspecified (principal); R06.83 Snoring

== ENCOUNTER → 2017-10-16 | Outpatient (CLI) | payer BC ==
[~2017-10-16] MED LIST changes: +METO100T44 PO; -METO1TAB69 PO; -OXYC-57 PO
[2017-10-16 12:48] LABS: THYROID STIMULATING HORMONE 2.47 uIu/ml (0.300-4.500)
== END | disposition home or self-care (01) ==
LOC: C.LAB1850 11:14
PROVIDERS: ATTEND Internal Medicine Endocrinology, Diabetes & Metabolism
DX: E05.90 Thyrotoxicosis, unspecified without thyrotoxic crisis or storm (principal)

== ENCOUNTER → 2017-10-16 | Outpatient (CLI) | payer BC ==
[~2017-10-16] VITALS: Ht 149.9 cm; Wt 81.0 kg
[2017-10-16 14:02] VITALS: BP 147/84; PULSE 66; Ht 149.9 cm; Wt 81.0 kg
== END | disposition home or self-care (01) ==
LOC: C.NEUR 13:50
PROVIDERS: ATTEND Physician Assistant
DX: G47.33 Obstructive sleep apnea (adult) (pediatric) (principal); G25.81 Restless legs syndrome; I10 Essential (primary) hypertension; E55.9 Vitamin D deficiency, unspecified; E03.9 Hypothyroidism, unspecified; R06.83 Snoring

== ENCOUNTER → 2018-02-11 | Outpatient (CLI) | payer BC ==
[~2018-02-11] MED LIST changes: -PRAM0.5T10 PO; +PRAM0.5T13 PO
== END | disposition home or self-care (01) ==
LOC: C.LAB1850 12:18
PROVIDERS: ATTEND Internal Medicine Endocrinology, Diabetes & Metabolism
DX: E05.10 Thyrotoxicosis with toxic single thyroid nodule without thyrotoxic crisis or storm (principal)

== ENCOUNTER → 2018-03-09 | Outpatient (CLI) | payer BC ==
--- NOTE | 2018-03-09 13:00 | DIAGNOSTIC IMAGING REPORT ---
SINUSES-MAXILLOFACIAL W/O CLINICAL HISTORY: 77 years-old Female presenting with PAROSMIA. TECHNIQUE: Multidetector CT of the sinuses was performed without the use of intravenous contrast. IV contrast: None. A dose lowering technique was used consistent with the principles of ALARA (as low as reasonably achievable). COMPARISON: None. CT DOSE (mGy.cm): The estimated cumulative dose is 661.51 mGy.cm. FINDINGS: Mental Health Practitioner topogram: Unremarkable. Paranasal sinuses and mastoid air cells clear. Middle ears clear. Bony nasal septum is midline. No sclerosis of the sinus obando to suggest chronic sinusitis. No osseous erosion. No bony dehiscence of the carotid siphons or optic canals. No other anatomic variant. Ostiomeatal units and nasofrontal ethmoidal recesses patent. Age-related changes of the brain noted. [place] lenses in the orbits are absent. Superficial soft tissues of the face within normal limits. IMPRESSION: 1. No evidence of acute or chronic sinusitis at this time. 2. No significant anatomic variant. Electronically signed by: Joe Álvarez M.D. 03/09/2018 12:59 PM Dictated Date/Time: 03/09/2018 12:55 PM
== END | disposition home or self-care (01) ==
LOC: C.CTS 12:41
PROVIDERS: ATTEND Otolaryngology
DX: R43.1 Parosmia (principal)

== ENCOUNTER → 2018-06-08 | Outpatient (CLI) | payer BC | END | disposition home or self-care (01) | LOC: C.RDSM 11:17 | PROVIDERS: ATTEND Physical Medicine & Rehabilitation Sports Medicine | DX: Z09 Encounter for follow-up examination after completed treatment for conditions other than malignant neoplasm (principal); Z96.651 Presence of right artificial knee joint ==

== ENCOUNTER → 2018-06-10 | Outpatient (CLI) | payer BC | END | disposition home or self-care (01) | LOC: C.LAB1850 09:34 | PROVIDERS: ATTEND Internal Medicine Endocrinology, Diabetes & Metabolism | DX: E05.90 Thyrotoxicosis, unspecified without thyrotoxic crisis or storm (principal) ==

== ENCOUNTER 2022-12-12 11:07 | Inpatient (IN) ==
--- NOTE | 2022-12-06 18:17 | Anesthesiology Consultation ---
Date of Service December 06, 2022 Assessment & Plan (1) Encounter for pre-operative examination: Chart Review Chart Review: journal entry audit clerk initiated History Surgery Operation Date: 12/12/22 14:30 Proposed Procedures p Colonoscopy Dr. Everett Floyd MD Height/Weight Height: 5 ft Weight: 90.718 kg Allergies Allergy/AdvReac Type Severity Reaction Status Date / Time gabapentin Allergy Intermediate DIZZINESS/T Verified 12/06/22 13:16 REMORS latex Allergy Mild RASH Verified 12/06/22 13:16 Medications Home Medications Medication Instructions Recorded Confirmed Last Taken cholecalciferol (vitamin D3) 25 1,000 units PO BID 10/05/19 12/06/22 Unknown mcg (1,000 unit) capsule (Vitamin D3) doxazosin 4 mg tablet 2 mg PO HS 10/05/19 12/06/22 Unknown losartan 100 mg tablet 100 mg PO QAM 10/05/19 12/06/22 Unknown simvastatin 20 mg tablet 20 mg PO HS 10/05/19 12/06/22 Unknown famotidine 20 mg tablet 20 mg PO QPM 10/14/19 12/06/22 Unknown ferrous sulfate 325 mg (65 mg 325 mg PO QAM 04/06/20 12/06/22 Unknown iron) tablet meloxicam 7.5 mg tablet 7.5 mg PO DAILY 12/19/20 12/06/22 Unknown CPAP Machine #1 ea 03/22/21 12/02/22 Unknown fluticasone propionate 50 2 spray intranasal DAILY #15.8 mL 05/15/21 12/06/22 Unknown mcg/actuation nasal spray,suspension potassium chloride 10 mEq 10 meq PO TID 10/10/21 12/06/22 Unknown tablet,extended release furosemide 20 mg tablet (Lasix) 10 mg PO QAM 09/04/22 12/06/22 Unknown spironolactone 25 mg tablet 25 mg PO QAM 09/04/22 12/06/22 Unknown zolpidem 5 mg tablet (Ambien) 5 mg PO ONCE #1 tab 09/26/22 12/06/22 Unknown sodium sul 1.479 gram-potas ch See Rx Instructions PO .COMPLEX 12/01/22 12/02/22 Unknown 0.188 gram-magnes sul 0.225 gram #24 tabs tablet (Sutab) methimazole 5 mg tablet 2.5 mg PO QAM 12/06/22 12/06/22 Unknown metoprolol succinate 50 mg 50 mg PO QPM 12/06/22 12/06/22 Unknown tablet,extended release 24 hr pramipexole 0.25 mg tablet 0.25 mg PO BID 12/06/22 12/06/22 Unknown vit C 250 mg-vit E 90 mg-zinc 40 1 tab PO BID 12/06/22 12/06/22 Unknown mg-copper 1 [id number] capsule (PreserVision AREDS-2) Past Medical History Medical History Arthritis Depression GERD (gastroesophageal reflux disease) H/O radioactive iodine thyroid ablation History of cystocele Repaired 04/23/2001 Hyperlipidemia Hypertension Hyperthyroidism Macular degeneration NANI (obstructive sleep apnea) CPAP Restless legs syndrome Past Family History Family History Father Hearing loss Hypertension Stroke Mother Heart disease Other No family history of adverse response to anesthesia No family history of bleeding disorder Past Surgical History Surgical History H/O breast surgery LEFT D/T INFECTION H/O elbow surgery LEFT (HARDWARE INTACT) History of anesthesia reaction NAUSEA AND SLOW TO WAKE UP History of bunionectomy LEFT History of cataract surgery RT/LEFT History of colonoscopy History of knee replacement Left Knee - 02/20/2016 Right Knee - 03/04/2017 History of partial hysterectomy History of surgery Removal of mass on ovaries History of tooth extraction Hx of salpingo-oophorectomy, bilateral Social History Smoking Status: Never smoker Hx Alcohol Use: No Hx Substance Use: No substance use type: does not use Lab Results Anesthesia Preop Results Results Anesthesia Widget: TSH 0.773 uIu/ml (0.300-4.500) 12/02/22 Free T4 1.14 ng/dl (0.61-1.60) 12/02/22 Testing Chest X-Ray Date: 06/26/22 Findings: + NAD Echocardiogram Per Cardiology report (08/19/22): 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
--- NOTE | 2022-12-12 11:36 | History & Physical Report ---
Date of Service December 12, 2022 Assessment & Plan (1) AVM (arteriovenous malformation): Plan proceed with colonoscopy. risks/benefits and procedure discussed with patient, who agrees to proceed History of Present Illness Primary Care Provider: Sabina Saleh MD 82 yo female here for colonoscopy. Allergies Allergy/AdvReac Type Severity Reaction Status Date / Time gabapentin Allergy Intermediate DIZZINESS/T Verified 12/12/22 11:23 REMORS latex Allergy Mild RASH Verified 12/12/22 11:23 Home Medications Medication Instructions Recorded Confirmed Type cholecalciferol (vitamin D3) 25 1,000 units PO BID 10/05/19 12/12/22 History mcg (1,000 unit) capsule (Vitamin D3) doxazosin 4 mg tablet 2 mg PO HS 10/05/19 12/12/22 History losartan 100 mg tablet 100 mg PO QAM 10/05/19 12/12/22 History simvastatin 20 mg tablet 20 mg PO HS 10/05/19 12/12/22 History famotidine 20 mg tablet 20 mg PO QPM 10/14/19 12/12/22 History ferrous sulfate 325 mg (65 mg 325 mg PO QAM 04/06/20 12/12/22 History iron) tablet meloxicam 7.5 mg tablet 7.5 mg PO DAILY 12/19/20 12/12/22 History CPAP Machine #1 ea 03/22/21 12/02/22 Rx fluticasone propionate 50 2 spray intranasal DAILY #15.8 mL 05/15/21 12/12/22 Rx mcg/actuation nasal spray,suspension potassium chloride 10 mEq 10 meq PO TID 10/10/21 12/12/22 History tablet,extended release furosemide 20 mg tablet (Lasix) 10 mg PO QAM 09/04/22 12/12/22 History spironolactone 25 mg tablet 25 mg PO QAM 09/04/22 12/12/22 History zolpidem 5 mg tablet (Ambien) 5 mg PO ONCE #1 tab 09/26/22 12/12/22 Rx sodium sul 1.479 gram-potas ch See Rx Instructions PO .COMPLEX 12/01/22 12/02/22 Rx 0.188 gram-magnes sul 0.225 gram #24 tabs tablet (Sutab) methimazole 5 mg tablet 2.5 mg PO QAM 12/06/22 12/12/22 History metoprolol succinate 50 mg 50 mg PO QPM 12/06/22 12/12/22 History tablet,extended release 24 hr pramipexole 0.25 mg tablet 0.25 mg PO BID 12/06/22 12/12/22 History vit C 250 mg-vit E 90 mg-zinc 40 1 tab PO BID 12/06/22 12/12/22 History mg-copper 1 [id number] capsule (PreserVision AREDS-2) Past Med/Surg History Medical History Arthritis Depression GERD (gastroesophageal reflux disease) H/O radioactive iodine thyroid ablation History of cystocele Repaired 04/23/2001 Hyperlipidemia Hypertension Hyperthyroidism Macular degeneration NANI (obstructive sleep apnea) CPAP Restless legs syndrome Surgical History H/O breast surgery LEFT D/T INFECTION H/O elbow surgery LEFT (HARDWARE INTACT) History of anesthesia reaction NAUSEA AND SLOW TO WAKE UP History of bunionectomy LEFT History of cataract surgery RT/LEFT History of colonoscopy History of knee replacement Left Knee - 02/20/2016 Right Knee - 03/04/2017 History of partial hysterectomy History of surgery Removal of mass on ovaries History of tooth extraction Hx of salpingo-oophorectomy, bilateral Family History Father Hearing loss Hypertension Stroke Mother Heart disease Other No family history of adverse response to anesthesia No family history of bleeding disorder Social History Smoking Status: Never smoker Second Hand Exposure: Yes ( A CHILD); Hx Alcohol Use: No Hx Substance Use: No Preferred Language: Mexican Internet Technology Manager Required: No Beliefs That Will Affect Care: None Current Living Situation: Spouse Feels Safe at Home: Yes Safety Concerns: Feels Safe At This Time Assistive Devices: Cane, CPAP, Hearing Aid - Bilateral and Walker Physical Exam Constitutional: WD/WN, vitals as above Respiratory: normal respiratory effort, lungs clear to auscultation Cardiovascular: RRR, no murmur, no edema Gastrointestinal (Abdomen): normal bowel sounds, soft, nontender, no hepatosplenomegaly Musculoskeletal: no lower extremity edema Psychiatric: A+Ox3, euthymic affect Results & Data ([facility]) Vital Signs (Past 12 Hours) Vital Signs Temp Pulse Resp BP Pulse Ox O2 Del Method 12/12/22 11:29 36.8 C 60 20 163/91 H 95 Room Air Coding Level of Care Code INT OBSERVATION CARE 70M LVL 3 Diagnoses AVM (arteriovenous malformation) Q27.30
[2022-12-12] MEDS ORDERED: SODIUM CHLORIDE 0.9% 1000ML 1,000 ML IV SCH (11:45)
[2022-12-12] MEDS ORDERED: LIDOCAINE 2% MPF LOCAL 5 ML VIAL INFIL ONE (11:55)
[2022-12-12] MEDS ORDERED: PROPOFOL IV EMULSION 10 MG/ML 20 ML VIAL IV ONE (11:56)
[2022-12-12] MEDS ORDERED: ONDANSETRON INJ 2 MG/ML 2 ML VIAL ONE ×2 (11:56→12:44)
[2022-12-12] MEDS ORDERED: DEXAMETHASONE SOD INJ 4 MG/ML VIAL ONE (12:44)
--- NOTE | 2022-12-12 12:45 | GI REPORT ---
Patient Name: Suzette Quarles Procedure Date: 12/12/2022 11:42 AM Date of : 1940 Admit Type: Outpatient Age: 82 Gender: Female Attending MD: Nikko Floyd MD, Procedure: Colonoscopy Providers: Nikko Floyd MD Referring MD: Sabina Saleh Indications: Suspected angioectasia Medicines: Monitored Anesthesia Care Complications: No immediate complications. Estimated blood loss: None. Estimated Blood Loss: Estimated blood loss: none. Procedure: Pre-Anesthesia Assessment: - Prior Anticoagulants: The patient has taken no anticoagulant or antiplatelet agents. - ASA Grade Assessment: II - A patient with mild systemic disease. After I obtained informed consent, the scope was passed under direct vision. Throughout the procedure, the patient's blood pressure, pulse, and oxygen saturations were monitored continuously. The Scope was introduced through the anus with the intention of advancing to the cecum. The scope was advanced to the ascending colon before the procedure was aborted. Medications were given. The colonoscopy was technically difficult and complex due to a redundant colon. The patient tolerated the procedure fairly well. Findings: A 3 mm polyp was found in the transverse colon. The polyp was sessile. The polyp was removed with a cold snare. Resection and retrieval were complete. Estimated blood loss: none. large redundant colon requiring manual pressure, upon advancing to ascending colon patient began to cough/vomit some contents, procedure aborted as per anesthesia's direction Impression: - One 3 mm polyp in the transverse colon, removed with a cold snare. Resected and retrieved. Recommendation: - Discharge patient to home (with escort). - Resume previous diet today. check CXR now to ensure no aspiration - Await pathology results. Nikko Floyd MD 12/12/2022 12:44:48 PM This report has been signed electronically. Note Initiated On: 12/12/2022 11:42 AM Number of Addenda: 0 I attest to the content of the Intraoperative Record and orders documented therein, exceptions below {[id number]}
[2022-12-12] MEDS ORDERED: ePHEDrine sulfate 50 MG/ML AMP IV PRN (13:38)
[2022-12-12] MEDS ORDERED: ATROPINE SULFATE 0.1 MG/ML 10ML SYR IV PRN (13:38)
[2022-12-12] MEDS ORDERED: ALBUTEROL 0.083% NEBU SOLN 3 ML VIAL INH PRN (13:38)
--- NOTE | 2022-12-12 14:39 | Communication Note ---
Date of Service: December 12, 2022 GI brief note patient noted to desaturate in recovery off oxygen, CXR appears to be stable, after discussion with anesthesia will monitor under observation tonight; discussed with admitting hospitalist who will monitor. Nikko Floyd MD Gastroenterology
--- NOTE | 2022-12-12 14:52 | XRay Report ---
XR chest 1V portable CLINICAL HISTORY: possible aspiration during colonoscopy COMPARISON STUDY: Chest radiograph June 26, 2022. FINDINGS: No pneumothorax or pleural effusion is present. Cardiomegaly is again noted. Linear left ba silar opacities reflect atelectasis. Subtle interstitial thickening and a few possible patchy left radhames ng opacities are present. There is no lobar consolidation. Old right-sided rib fractures are incident ally noted. IMPRESSION: 1. Subtle interstitial thickening and a few possible patchy left lung opacities. An infectious proces s or aspiration pneumonitis would be difficult to exclude. No lobar consolidation. 2. Cardiomegaly. No evidence for pulmonary edema. ACT 112: Negative or not required by law. Electronically signed by: Rian Barrett M.D. 12/12/2022 2:51 PM
--- NOTE | 2022-12-12 15:00 | Communication Note ---
Date of Service: December 12, 2022 During this pt's procedure this afternoon she seemed to have aspirated when pressure was applied to her abdomen to facilitate the colonoscopy. In PACU she complained of chest tightness, a sore throat, and exhibited a lot of coughing. On exam she had wheezing and ronchi after an albuterol nebulizer treatment. CXR showed some fuzziness at the diaphragmatic borders laterally, B/L. She maintained an O2 saturation of 95% on 10 lpm but desaturated to mid 80's on room air. I discussed this with Dr Floyd. He said he would call hospitalist to admit patient for further evaluation and treatment of probable aspiration.
--- NOTE | 2022-12-12 15:18 | History & Physical Report ---
Date of Service December 12, 2022 Assessment & Plan (1) Aspiration pneumonitis: Plan: Aspiration Pneumonitis -Patient with concerns for aspiration during colonoscopy during abdominal pressure to facilitate colonoscopy Postoperatively with significant coughing, increased wheezing/rhonchi following nebulizer, CXR concerning for pneumonitis and with desaturation requiring oxime mask CXR: 1. Subtle interstitial thickening and a few possible patchy left lung opacities. An infectious process or aspiration pneumonitis would be difficult to exclude. No lobar consolidation. 2. Cardiomegaly. No evidence for pulmonary edema. No fever, chills Follow clinically for fever, leukocytosis, Pro-Bruce pending. We will treat as aspiration pneumonitis at this time. She feels she is improving and has had no fevers, chills, and is not short of breath. If she develops fever/chills/sweats will cover empirically for aspiration pneumonia and can start Unasyn at that time We will continue on clears at this time, no indication for bronchoscopy/steroids at this time, no indication of oropharyngeal dysphagia SPO2 goal greater than 89% Suspected angioectasias Colonoscopy 12/12/2022. Sessile polyp was removed with a cold snare. No abdominal pain. Follow clinically for bleeding. COPD with history of dyspnea on exertion Albuterol as needed for wheezing NANI on CPAP CPAP nightly Chronic lower extremity edema Continue Lasix 10 mg every morning Hypertension Continue home losartan, metoprolol DVT prophylaxis: SCDs, will defer pharmacal prophylaxis for 12 hours given cold snare resection and then start Lovenox Disposition: Medical telemetry for monitoring given clinical aspiration and acute hypoxia CODE STATUS: Full code Diet: Clears (2) GERD (gastroesophageal reflux disease): (3) Hyperlipidemia: (4) Hypertension: (5) Hyperthyroidism: History of Present Illness Primary Care Provider: Sabina Saleh MD Suzette is seen at the bedside post colonoscopy in and recovery. She reports that post procedurally she has had a sore throat, has had an increased cough which is now starting to improve, and was coughing up some clear mucus which is now starting to improve. She was short of breath initially, she is not currently short of breath on oxime mask at 2 L. She was very wheezy, this is improved with an albuterol treatment and time. She reports she has a history of COPD, and medications were reconciled and accurate just prior to her procedure. She denies fever, chills, sweats, difficulty breathing, chest pain, chest pressure at time of bedside assessment. She is not lightheaded or dizzy. She is seen in the company of her who are agreeable to overnight observation for aspiration pneumonitis with risk of aspiration pneumonia. She has no medication allergies, does not use tobacco products, and does not use alcohol products. She has no abdominal pain, nausea following her colonoscopy. She did take her medications as directed this morning. Medical, surgical history, allergies, reviewed Allergies Allergy/AdvReac Type Severity Reaction Status Date / Time gabapentin Allergy Intermediate DIZZINESS/T Verified 12/12/22 11:23 REMORS latex Allergy Mild RASH Verified 12/12/22 11:23 Home Medications Medication Instructions Recorded Confirmed Type cholecalciferol (vitamin D3) 25 1,000 units PO BID 10/05/19 12/12/22 History mcg (1,000 unit) capsule (Vitamin D3) doxazosin 4 mg tablet 2 mg PO HS 10/05/19 12/12/22 History losartan 100 mg tablet 100 mg PO QAM 10/05/19 12/12/22 History simvastatin 20 mg tablet 20 mg PO HS 10/05/19 12/12/22 History famotidine 20 mg tablet 20 mg PO QPM 10/14/19 12/12/22 History ferrous sulfate 325 mg (65 mg 325 mg PO QAM 04/06/20 12/12/22 History iron) tablet meloxicam 7.5 mg tablet 7.5 mg PO DAILY 12/19/20 12/12/22 History CPAP Machine #1 ea 03/22/21 12/02/22 Rx fluticasone propionate 50 2 spray intranasal DAILY #15.8 mL 05/15/21 12/12/22 Rx mcg/actuation nasal spray,suspension potassium chloride 10 mEq 10 meq PO TID 10/10/21 12/12/22 History tablet,extended release furosemide 20 mg tablet (Lasix) 10 mg PO QAM 09/04/22 12/12/22 History spironolactone 25 mg tablet 25 mg PO QAM 09/04/22 12/12/22 History zolpidem 5 mg tablet (Ambien) 5 mg PO ONCE #1 tab 09/26/22 12/12/22 Rx sodium sul 1.479 gram-potas ch See Rx Instructions PO .COMPLEX 12/01/22 12/02/22 Rx 0.188 gram-magnes sul 0.225 gram #24 tabs tablet (Sutab) methimazole 5 mg tablet 2.5 mg PO QAM 12/06/22 12/12/22 History metoprolol succinate 50 mg 50 mg PO QPM 12/06/22 12/12/22 History tablet,extended release 24 hr pramipexole 0.25 mg tablet 0.25 mg PO BID 12/06/22 12/12/22 History vit C 250 mg-vit E 90 mg-zinc 40 1 tab PO BID 12/06/22 12/12/22 History mg-copper 1 [id number] capsule (PreserVision AREDS-2) Past Med/Surg History Medical History (Updated 12/12/22 @ 15:39 by Joe Thompson MD) Arthritis Depression GERD (gastroesophageal reflux disease) H/O radioactive iodine thyroid ablation History of cystocele Repaired 04/23/2001 Hyperlipidemia Hypertension Hyperthyroidism Macular degeneration NANI (obstructive sleep apnea) CPAP Restless legs syndrome Surgical History H/O breast surgery LEFT D/T INFECTION H/O elbow surgery LEFT (HARDWARE INTACT) History of anesthesia reaction NAUSEA AND SLOW TO WAKE UP History of bunionectomy LEFT History of cataract surgery RT/LEFT History of colonoscopy History of knee replacement Left Knee - 02/20/2016 Right Knee - 03/04/2017 History of partial hysterectomy History of surgery Removal of mass on ovaries History of tooth extraction Hx of salpingo-oophorectomy, bilateral Family History Father Hearing loss Hypertension Stroke Mother Heart disease Other No family history of adverse response to anesthesia No family history of bleeding disorder Social History Smoking Status: Never smoker Second Hand Exposure: Yes ( A CHILD); Hx Alcohol Use: No Hx Substance Use: No Preferred Language: Libyan Manager Community Development Required: No Beliefs That Will Affect Care: None Current Living Situation: Spouse Feels Safe at Home: Yes Safety Concerns: Feels Safe At This Time Assistive Devices: Cane, CPAP, Hearing Aid - Bilateral and Walker Review of Systems Review of Systems: All systems reviewed & are unremarkable except as noted in HPI & below Physical Exam Physical Exam: General: A&Ox3. NAD. Cooperative. HEENT: Atraumatic, normocephalic. Oxen mask in place Pulm: Diffusely coarse most prominent in the right upper lung field, at time of hospitalist assessment she is not wheezing. Symmetrical chest rise. No increased work of breathing. No respiratory distress. Cardiac: RRR, -mrg. Radial pulses intact and symmetrical. Abdominal: Nontender, nondistended, soft. BS present. Extremities: Warm, dry. Moving all extremities equally Results & Data Results & Data ([facility]) Vital Signs (Past 12 Hours) Vital Signs Temp Pulse Resp BP Pulse Ox O2 Del Method O2 Flow Rate 12/12/22 14:18 78 20 95 Oxymask 10 12/12/22 15:06 87 20 143/100 H 95 Oxymask 2 12/12/22 15:01 90 20 147/88 H 94 Oxymask 2 12/12/22 14:56 86 20 116/95 94 Oxymask 2 12/12/22 14:50 85 20 137/100 92 Oxymask 2 12/12/22 14:46 87 20 150/85 H 94 Oxymask 2 12/12/22 14:40 88 20 132/97 94 Oxymask 2 12/12/22 14:34 87 20 136/94 94 Oxymask 2 12/12/22 14:29 86 20 153/117 H 91 Oxymask 10 12/12/22 14:22 86 18 108/77 91 Oxymask 7 12/12/22 14:10 81 18 132/96 96 Oxymask 10 12/12/22 14:05 84 18 150/91 H 96 Oxymask 10 12/12/22 14:01 83 18 143/89 H 98 Oxymask 10 12/12/22 13:56 81 18 134/74 97 Oxymask 10 12/12/22 13:51 89 18 133/90 97 Oxymask 10 12/12/22 13:46 90 18 114/97 97 Oxymask 10 12/12/22 13:41 80 20 157/93 H 95 Oxymask 10 12/12/22 13:36 76 20 156/92 H 97 Oxymask 10 12/12/22 13:30 78 20 142/84 H 96 Oxymask 10 12/12/22 13:26 74 20 135/93 95 Oxymask 10 12/12/22 13:20 36.5 C 83 18 177/119 H 97 Oxymask 10 12/12/22 13:15 36.6 C 82 20 159/98 H 95 Oxymask 10 12/12/22 13:10 36.6 C 90 20 162/99 H 96 Oxymask 10 12/12/22 13:00 36.6 C 84 20 155/97 H 98 Oxymask 10 12/12/22 11:29 36.8 C 60 20 163/91 H 95 Room Air PG Care Time/CCT Total # of Minutes Spent Total Time Spent with Patient: Total time spent is greater than 50% in coordination of care (as documented) at patient's floor/unit and/or counseling patient: Coding Level of Care Code 17511 INT INP/OBS CARE 255MIN Diagnoses Aspiration pneumonitis J69.0 GERD (gastroesophageal reflux disease) K21.9 Hyperlipidemia E78.5 Hypertension I10 Hyperthyroidism E05.90
[2022-12-12] MEDS ORDERED: ACETAMINOPHEN 325 MG TAB PO PRN (17:26)
[2022-12-12 17:52] LABS: Hematocrit (blood only) 40.2 % (37.0-47.0); Hemoglobin 13.7 g/dl (12.0-16.0); Mean Corpuscular Hemoglobin 31.1 pg (25.0-34.0); Mean Corpuscular Hgb Conc 34.1 g/dL (32.0-36.0); Mean Corpuscular Volume 91.4 fL (80.0-100.0); Mean Platelet Volume 9.5 fL (9.4-12.4); Platelet Count 131 K/uL (130-400); RDW Coefficient of Variation 12.8 % (11.5-14.5); RDW Standard Deviation 42.5 fL (36.4-46.3); White Blood Count 13.93 K/ul (4.8-10.8)
[2022-12-12 18:16] LABS: BUN Creatinine Ratio 23.5 (10-20); Creatinine Clr Calc Pharmacy 45.7 ml/min; Est GFR (African American) 62.7 ml/min; Est GFR (Non-African American) 54.1 ml/min; Potassium 3.8 mmol/L (3.5-5.1)
[2022-12-12 18:31] LABS: Basophils # (auto) 0.03 K/uL (0-0.2); Basophils % (auto) 0.2 %; Eosinophils # (auto) 0.01 K/uL (0-0.50); Eosinophils % (auto) 0.1 %; Immature Granulocytes # (auto) 0.04 K/uL (0.01-0.20); Immature Granulocytes % (auto) 0.3 %; Lymphocytes # (auto) 0.45 K/uL (1.2-3.4); Lymphocytes % (auto) 3.2 %; Monocytes # (auto) 0.53 K/uL (0.11-0.59); Monocytes % (auto) 3.8 %; Neutrophils # (auto) 12.87 K/uL (1.40-6.50); Neutrophils % (auto) 92.4 %; Polychromasia 1+
[2022-12-12] MEDS: PRAMIPEXOLE DIHYDROCHLO 0.25 MG TAB PO SCH (20:39)
[2022-12-12] MEDS: METOPROLOL SUCC 50MG EXT REL TAB PO SCH (20:39)
[2022-12-12] MEDS: POTASSIUM CHLORIDE 10 MEQ TABCR PO SCH (20:40)
[2022-12-12] MEDS: FAMOTIDINE 20 MG TAB PO SCH (20:40)
[2022-12-12] MEDS: SIMVASTATIN 20 MG TAB PO SCH (20:41)
[2022-12-13 07:01] LABS: Basophils # (auto) 0.02 K/uL (0-0.2); Basophils % (auto) 0.2 %; Eosinophils # (auto) 0.01 K/uL (0-0.50); Eosinophils % (auto) 0.1 %; Hematocrit (blood only) 35.5 % (37.0-47.0); Hemoglobin 11.9 g/dl (12.0-16.0); Immature Granulocytes # (auto) 0.05 K/uL (0.01-0.20); Immature Granulocytes % (auto) 0.4 %; Lymphocytes % (auto) 6.4 %; Mean Corpuscular Hemoglobin 30.9 pg (25.0-34.0); Mean Corpuscular Hgb Conc 33.5 g/dL (32.0-36.0); Mean Corpuscular Volume 92.2 fL (80.0-100.0); Mean Platelet Volume 9.7 fL (9.4-12.4); Monocytes # (auto) 0.81 K/uL (0.11-0.59); Monocytes % (auto) 6.5 %; Neutrophils # (auto) 10.82 K/uL (1.40-6.50); Neutrophils % (auto) 86.4 %; Platelet Count 148 K/uL (130-400); RDW Coefficient of Variation 13.1 % (11.5-14.5); RDW Standard Deviation 44.5 fL (36.4-46.3); Red Blood Count 3.85 M/uL (4.20-5.40); White Blood Count 12.51 K/ul (4.8-10.8)
[2022-12-13 07:26] LABS: BUN Creatinine Ratio 22.5 (10-20); C Reactive Protein 3.65 mg/dl (0-0.5); Creatinine Clr Calc Pharmacy 43.8 ml/min; Est GFR (African American) 59.7 ml/min; Est GFR (Non-African American) 51.5 ml/min
[2022-12-13] MEDS: methIMAzole 5 MG TABLET PO SCH (08:20)
[2022-12-13] MEDS: FUROSEMIDE 20 MG TAB PO SCH (08:20)
[2022-12-13] MEDS: SPIRONOLACTONE 25 MG TAB PO SCH (08:20)
[2022-12-13] MEDS: LOSARTAN POTASSIUM 50 MG TAB PO SCH (08:21)
[2022-12-13] MEDS: PRAMIPEXOLE DIHYDROCHLO 0.25 MG TAB PO SCH ×2 (08:22→20:12)
[2022-12-13] MEDS: POTASSIUM CHLORIDE 10 MEQ TABCR PO SCH ×3 (08:22→20:14)
[2022-12-13] MEDS: ALBUT/IPRATROP 3MG/0.5MG NEB 3 ML VIAL NEB SCH ×3 (15:23→23:21)
[2022-12-13] MEDS: SIMVASTATIN 20 MG TAB PO SCH (20:12)
[2022-12-13] MEDS: METOPROLOL SUCC 50MG EXT REL TAB PO SCH (20:13)
[2022-12-13] MEDS: FAMOTIDINE 20 MG TAB PO SCH (20:13)
--- NOTE | 2022-12-13 23:39 | Hospitalist Progress Note ---
Date of Service December 13, 2022 Assessment & Plan (1) Aspiration pneumonitis: Plan: Aspiration Pneumonitis -Patient with concerns for aspiration during colonoscopy during abdominal pressure to facilitate colonoscopy Postoperatively with significant coughing, increased wheezing/rhonchi following nebulizer, CXR concerning for pneumonitis and with desaturation requiring oxime mask CXR: 1. Subtle interstitial thickening and a few possible patchy left lung opacities. An infectious process or aspiration pneumonitis would be difficult to exclude. No lobar consolidation. 2. Cardiomegaly. No evidence for pulmonary edema. No fever, chills Follow clinically for fever, leukocytosis, Pro-Bruce pending. We will treat as aspiration pneumonitis at this time. She feels she is improving and has had no fevers, chills, and is not short of breath. If she develops fever/chills/sweats will cover empirically for aspiration pneumonia and can start Unasyn at that time We will continue on clears at this time, no indication for bronchoscopy/steroids at this time, no indication of oropharyngeal dysphagia SPO2 goal greater than 89% Suspected angioectasias Colonoscopy 12/12/2022. Sessile polyp was removed with a cold snare. No abdominal pain. Follow clinically for bleeding. COPD with history of dyspnea on exertion Albuterol as needed for wheezing NANI on CPAP CPAP nightly Chronic lower extremity edema Continue Lasix 10 mg every morning Hypertension Continue home losartan, metoprolol DVT prophylaxis: SCDs, will defer pharmacal prophylaxis for 12 hours given cold snare resection and then start Lovenox Disposition: Medical telemetry for monitoring given clinical aspiration and acute hypoxia CODE STATUS: Full code Diet: Clears (2) GERD (gastroesophageal reflux disease): (3) Hyperlipidemia: (4) Hypertension: (5) Hyperthyroidism: Admission and Anticipated Discharge Date Admission Date: December 12, 2022 Subjective Patient still reports some wheezing symptoms No fevers or chills Physical Exam Physical Exam: Head and ENT no thyroid enlargement trachea midline Cardiovascular S1-S2 are normal no S3 Lungs bilateral air entry decreased at bases with few wheezes heard Abdomen soft nondistended positive bowel sounds no rebound tenderness Extremity shows trace edema Neurologically no focal deficits Skin shows no rash no cyanosis Results & Data Results & Data ([facility]) Vital Signs (Past 12 Hours) Vital Signs Temp Pulse Pulse Resp BP Pulse Ox Pulse Ox 12/13/22 23:13 36.6 C 72 20 120/74 90 12/13/22 23:23 81 92 12/13/22 19:34 36.6 C 66 16 117/65 90 12/13/22 19:47 88 90 12/13/22 17:26 97 12/13/22 16:44 37.1 C 67 19 132/78 96 12/13/22 15:47 60 12/13/22 15:24 74 17 90 O2 Del Method O2 Del Method O2 Flow Rate FiO2 12/13/22 23:13 Room Air 12/13/22 23:23 Room Air 21 12/13/22 19:34 Room Air 12/13/22 19:47 Room Air 21 12/13/22 17:26 Nasal Cannula 2 12/13/22 16:44 Room Air 12/13/22 15:47 12/13/22 15:24 Room Air Laboratory Results Short CBC 12/13/22 Range/Units 06:16 WBC 12.51 H (4.8-10.8) K/ul Hgb 11.9 L (12.0-16.0) g/dl Hct 35.5 L (37.0-47.0) % Plt Count 148 (130-400) K/uL BMP 12/13/22 06:16 Sodium 139 Potassium 4.0 Chloride 107 Carbon Dioxide 27 BUN 23 Creatinine 1.02 Glucose 89 Calcium 8.0 L PG Care Time/CCT Total # of Minutes Spent Total Time Spent with Patient: Total time spent is greater than 50% in coordination of care (as documented) at patient's floor/unit and/or counseling patient: Coding Level of Care Code 13280 SUB INP/OBS CARE 235MIN Diagnoses Aspiration pneumonitis J69.0 GERD (gastroesophageal reflux disease) K21.9 Hyperlipidemia E78.5 Hypertension I10 Hyperthyroidism E05.90
[2022-12-14] MEDS: ALBUT/IPRATROP 3MG/0.5MG NEB 3 ML VIAL NEB SCH ×5 (03:08→20:16)
[2022-12-14 06:57] LABS: Hematocrit (blood only) 35.2 % (37.0-47.0); Hemoglobin 11.7 g/dl (12.0-16.0); Mean Corpuscular Hemoglobin 31.4 pg (25.0-34.0); Mean Corpuscular Hgb Conc 33.2 g/dL (32.0-36.0); Mean Corpuscular Volume 94.4 fL (80.0-100.0); Mean Platelet Volume 9.3 fL (9.4-12.4); Platelet Count 131 K/uL (130-400); RDW Coefficient of Variation 13.2 % (11.5-14.5); RDW Standard Deviation 45.7 fL (36.4-46.3); Red Blood Count 3.73 M/uL (4.20-5.40); White Blood Count 8.14 K/ul (4.8-10.8)
[2022-12-14 07:18] LABS: BUN Creatinine Ratio 12.8 (10-20); Calcium 8.3 mg/dl (8.5-10.1); Creatinine Clr Calc Pharmacy 35.5 ml/min; Est GFR (African American) 46.7 ml/min; Est GFR (Non-African American) 40.3 ml/min; Potassium 3.9 mmol/L (3.5-5.1)
[2022-12-14] MEDS: FUROSEMIDE 20 MG TAB PO SCH (08:39)
[2022-12-14] MEDS: methIMAzole 5 MG TABLET PO SCH (08:40)
[2022-12-14] MEDS: LOSARTAN POTASSIUM 50 MG TAB PO SCH (08:40)
[2022-12-14] MEDS: SPIRONOLACTONE 25 MG TAB PO SCH (08:40)
[2022-12-14] MEDS: POTASSIUM CHLORIDE 10 MEQ TABCR PO SCH ×3 (08:40→20:53)
[2022-12-14] MEDS: PRAMIPEXOLE DIHYDROCHLO 0.25 MG TAB PO SCH ×2 (08:40→20:54)
[2022-12-14] MEDS: FAMOTIDINE 20 MG TAB PO SCH (20:52)
[2022-12-14] MEDS: METOPROLOL SUCC 50MG EXT REL TAB PO SCH (20:54)
[2022-12-14] MEDS: SIMVASTATIN 20 MG TAB PO SCH (20:54)
[2022-12-14] MEDS ORDERED: BENZONATATE 100 MG CAPSULE PO PRN (22:11)
--- NOTE | 2022-12-14 22:46 | Hospitalist Progress Note ---
Date of Service December 14, 2022 Assessment & Plan (1) Aspiration pneumonitis: Plan: Aspiration Pneumonitis -Patient with concerns for aspiration during colonoscopy during abdominal pressure to facilitate colonoscopy Postoperatively with significant coughing, increased wheezing/rhonchi following nebulizer, CXR concerning for pneumonitis and with desaturation requiring oxime mask CXR: 1. Subtle interstitial thickening and a few possible patchy left lung opacities. An infectious process or aspiration pneumonitis would be difficult to exclude. No lobar consolidation. 2. Cardiomegaly. No evidence for pulmonary edema. No fever, chills Follow clinically for fever, leukocytosis, Pro-Bruce pending. We will treat as aspiration pneumonitis at this time. She feels she is improving and has had no fevers, chills, and is not short of breath. If she develops fever/chills/sweats will cover empirically for aspiration pneumonia and can start Unasyn at that time We will continue on clears at this time, no indication for bronchoscopy/steroids at this time, no indication of oropharyngeal dysphagia SPO2 goal greater than 89% Suspected angioectasias Colonoscopy 12/12/2022. Sessile polyp was removed with a cold snare. No abdominal pain. Follow clinically for bleeding. COPD with history of dyspnea on exertion Albuterol as needed for wheezing NANI on CPAP CPAP nightly Chronic lower extremity edema Continue Lasix 10 mg every morning Hypertension Continue home losartan, metoprolol DVT prophylaxis: SCDs, will defer pharmacal prophylaxis for 12 hours given cold snare resection and then start Lovenox Disposition: Medical telemetry for monitoring given clinical aspiration and acute hypoxia CODE STATUS: Full code Diet: Clears /-patient to be continued on bronchodilators Aspiration precautions to be continued Short course of steroids Patient also will continue on incentive spirometry (2) GERD (gastroesophageal reflux disease): (3) Hyperlipidemia: (4) Hypertension: (5) Hyperthyroidism: Admission and Anticipated Discharge Date Admission Date: December 12, 2022 Subjective Patient has some improvement in wheezing symptoms Bedside swallowing eval performed patient not found to have aspiration issues Diet will be advanced No fevers or chills Physical Exam Physical Exam: Head and ENT no thyroid enlargement trachea midline Cardiovascular S1-S2 are normal no S3 Lungs bilateral air entry decreased at bases with wheezing heard Abdomen soft nondistended positive bowel sounds no rebound tenderness Extremity shows trace edema Neurologically no focal deficits Skin shows no rash no cyanosis Results & Data Results & Data ([facility]) Vital Signs (Past 12 Hours) Vital Signs Temp Pulse Pulse Pulse Resp BP Pulse Ox 12/14/22 20:22 90 16 90 12/14/22 19:17 36.8 C 86 20 134/83 90 12/14/22 17:07 94 H 12/14/22 15:23 36.8 C 101 H 18 130/85 92 12/14/22 14:50 85 18 92 12/14/22 13:04 94 12/14/22 12:15 36.8 C 96 H 16 122/80 90 12/14/22 11:03 76 18 91 O2 Del Method 12/14/22 20:22 Room Air 12/14/22 19:17 Room Air 12/14/22 17:07 12/14/22 15:23 Room Air 12/14/22 14:50 Room Air 12/14/22 13:04 Room Air 12/14/22 12:15 Room Air 12/14/22 11:03 Room Air Laboratory Results Short CBC 12/14/22 Range/Units 06:19 WBC 8.14 (4.8-10.8) K/ul Hgb 11.7 L (12.0-16.0) g/dl Hct 35.2 L (37.0-47.0) % Plt Count 131 (130-400) K/uL BMP 12/14/22 06:19 Sodium 140 Potassium 3.9 Chloride 107 Carbon Dioxide 28 BUN 16 Creatinine 1.25 H Glucose 97 Calcium 8.3 L PG Care Time/CCT Total # of Minutes Spent Total Time Spent with Patient: Total time spent is greater than 50% in coordination of care (as documented) at patient's floor/unit and/or counseling patient: Coding Level of Care Code 10191 SUB INP/OBS CARE 235MIN Diagnoses Aspiration pneumonitis J69.0 GERD (gastroesophageal reflux disease) K21.9 Hyperlipidemia E78.5 Hypertension I10 Hyperthyroidism E05.90
[2022-12-14] MEDS: dexAMETHasone 4 MG in SYRINGE 0 ML IV SCH (23:35)
[2022-12-15] MEDS: ALBUT/IPRATROP 3MG/0.5MG NEB 3 ML VIAL NEB SCH ×7 (00:02→22:19)
[2022-12-15 06:47] LABS: Hematocrit (blood only) 38.8 % (37.0-47.0); Mean Corpuscular Hemoglobin 31.1 pg (25.0-34.0); Mean Corpuscular Hgb Conc 33.5 g/dL (32.0-36.0); Mean Corpuscular Volume 92.8 fL (80.0-100.0); Mean Platelet Volume 9.6 fL (9.4-12.4); Platelet Count 152 K/uL (130-400); RDW Standard Deviation 44.5 fL (36.4-46.3); Red Blood Count 4.18 M/uL (4.20-5.40)
[2022-12-15 06:55] LABS: BUN Creatinine Ratio 16.8 (10-20); Calcium 9.2 mg/dl (8.5-10.1); Creatinine Clr Calc Pharmacy 43.7 ml/min; Est GFR (African American) 60.5 ml/min; Est GFR (Non-African American) 52.2 ml/min; Potassium 4.5 mmol/L (3.5-5.1)
[2022-12-15] MEDS: FUROSEMIDE 20 MG TAB PO SCH (08:17)
[2022-12-15] MEDS: methIMAzole 5 MG TABLET PO SCH (08:18)
[2022-12-15] MEDS: PRAMIPEXOLE DIHYDROCHLO 0.25 MG TAB PO SCH ×2 (08:18→20:15)
[2022-12-15] MEDS: SPIRONOLACTONE 25 MG TAB PO SCH (08:18)
[2022-12-15] MEDS: POTASSIUM CHLORIDE 10 MEQ TABCR PO SCH ×3 (08:18→20:15)
[2022-12-15] MEDS: LOSARTAN POTASSIUM 50 MG TAB PO SCH (08:18)
[2022-12-15] MEDS ORDERED: MAGNESIUM HYDROXIDE SUSP 30 ML UDC PO PRN (16:04)
--- NOTE | 2022-12-15 16:53 | Hospitalist Progress Note ---
Date of Service December 15, 2022 Assessment & Plan (1) Aspiration pneumonitis: Plan: Aspiration Pneumonitis -Patient with concerns for aspiration during colonoscopy during abdominal pressure to facilitate colonoscopy Postoperatively with significant coughing, increased wheezing/rhonchi following nebulizer, CXR concerning for pneumonitis and with desaturation requiring oxime mask CXR: 1. Subtle interstitial thickening and a few possible patchy left lung opacities. An infectious process or aspiration pneumonitis would be difficult to exclude. No lobar consolidation. 2. Cardiomegaly. No evidence for pulmonary edema. No fever, chills Follow clinically for fever, leukocytosis, Pro-Bruce pending. We will treat as aspiration pneumonitis at this time. She feels she is improving and has had no fevers, chills, and is not short of breath. If she develops fever/chills/sweats will cover empirically for aspiration pneumonia and can start Unasyn at that time We will continue on clears at this time, no indication for bronchoscopy/steroids at this time, no indication of oropharyngeal dysphagia SPO2 goal greater than 89% Suspected angioectasias Colonoscopy 12/12/2022. Sessile polyp was removed with a cold snare. No abdominal pain. Follow clinically for bleeding. COPD with history of dyspnea on exertion Albuterol as needed for wheezing NANI on CPAP CPAP nightly Chronic lower extremity edema Continue Lasix 10 mg every morning Hypertension Continue home losartan, metoprolol DVT prophylaxis: SCDs, will defer pharmacal prophylaxis for 12 hours given cold snare resection and then start Lovenox Disposition: Medical telemetry for monitoring given clinical aspiration and acute hypoxia CODE STATUS: Full code Diet: Clears 2/-patient to be continued on bronchodilators Aspiration precautions to be continued Short course of steroids Patient also will continue on incentive spirometry /-patient showing improvement with IV Decadron and oxygen supplementation Continuous incentive spirometry Will obtain nocturnal pulse oximetry as patient is requiring oxygen supplementation to nasal cannula to determine needs If patient continues to improve plan to DC tomorrow (2) GERD (gastroesophageal reflux disease): (3) Hyperlipidemia: (4) Hypertension: (5) Hyperthyroidism: Admission and Anticipated Discharge Date Admission Date: December 12, 2022 Subjective Patient has some improvement in wheezing symptoms Patient noted to have some need for oxygen supplementation Will obtain nocturnal pulse oximetry today Patient continuing to use incentive spirometry Diet will be advanced No fevers or chills Physical Exam Physical Exam: Head and ENT no thyroid enlargement trachea midline Cardiovascular S1-S2 are normal no S3 Lungs bilateral air entry decreased at bases with wheezing improving Abdomen soft nondistended positive bowel sounds no rebound tenderness Extremity shows trace edema Neurologically no focal deficits Skin shows no rash no cyanosis Results & Data Results & Data ([facility]) Vital Signs (Past 12 Hours) Vital Signs Temp Pulse Pulse Pulse Resp BP Pulse Ox 12/15/22 15:56 95 H 12/15/22 15:09 36.4 C L 104 H 20 128/68 92 12/15/22 14:20 88 18 95 12/15/22 13:00 95 12/15/22 12:37 36.8 C 102 H 16 134/86 93 12/15/22 11:36 80 18 97 12/15/22 11:21 12/15/22 10:21 12/15/22 07:50 85 12/15/22 07:44 36.5 C 95 H 18 134/88 90 12/15/22 07:17 83 18 94 Pulse Ox O2 Del Method O2 Del Method O2 Flow Rate O2 Flow Rate 12/15/22 15:56 12/15/22 15:09 Room Air 12/15/22 14:20 Nasal Cannula 1 12/15/22 13:00 Nasal Cannula 3 12/15/22 12:37 Nasal Cannula 2 12/15/22 11:36 Nasal Cannula 2 12/15/22 11:21 Nasal Cannula 2 12/15/22 10:21 96 Nasal Cannula 2 12/15/22 07:50 12/15/22 07:44 Nasal Cannula 12/15/22 07:17 Nasal Cannula 2 Laboratory Results Short CBC 12/15/22 Range/Units 05:45 WBC 7.30 (4.8-10.8) K/ul Hgb 13.0 (12.0-16.0) g/dl Hct 38.8 (37.0-47.0) % Plt Count 152 (130-400) K/uL BMP 12/15/22 05:45 Sodium 139 Potassium 4.5 Chloride 105 Carbon Dioxide 29 BUN 17 Creatinine 1.01 Glucose 127 H Calcium 9.2 PG Care Time/CCT Total # of Minutes Spent Total Time Spent with Patient: Total time spent is greater than 50% in coordination of care (as documented) at patient's floor/unit and/or counseling patient: Coding Level of Care Code 52089 SUB INP/OBS CARE MIN Diagnoses Aspiration pneumonitis J69.0 GERD (gastroesophageal reflux disease) K21.9 Hyperlipidemia E78.5 Hypertension I10 Hyperthyroidism E05.90
[2022-12-15] MEDS: FAMOTIDINE 20 MG TAB PO SCH (20:15)
[2022-12-15] MEDS: METOPROLOL SUCC 50MG EXT REL TAB PO SCH (20:15)
[2022-12-15] MEDS: SIMVASTATIN 20 MG TAB PO SCH (20:16)
[2022-12-15] MEDS ORDERED: ONDANSETRON INJ 2 MG/ML 2 ML VIAL IV PRN (22:00)
[2022-12-15] MEDS: dexAMETHasone 4 MG in SYRINGE 0 ML IV SCH (22:41)
[2022-12-16] MEDS: ALBUT/IPRATROP 3MG/0.5MG NEB 3 ML VIAL NEB SCH ×3 (04:49→11:09)
[2022-12-16 06:27] LABS: Hematocrit (blood only) 38.6 % (37.0-47.0); Hemoglobin 13.1 g/dl (12.0-16.0); Mean Corpuscular Hemoglobin 31.3 pg (25.0-34.0); Mean Corpuscular Hgb Conc 33.9 g/dL (32.0-36.0); Mean Corpuscular Volume 92.3 fL (80.0-100.0); Mean Platelet Volume 9.4 fL (9.4-12.4); Platelet Count 178 K/uL (130-400); RDW Coefficient of Variation 13.1 % (11.5-14.5); Red Blood Count 4.18 M/uL (4.20-5.40); White Blood Count 9.98 K/ul (4.8-10.8)
[2022-12-16 06:47] LABS: BUN Creatinine Ratio 20.2 (10-20); Calcium 8.8 mg/dl (8.5-10.1); Creatinine Clr Calc Pharmacy 44.5 ml/min; Est GFR (African American) 61.9 ml/min; Est GFR (Non-African American) 53.4 ml/min; Potassium 4.8 mmol/L (3.5-5.1)
[2022-12-16] MEDS: methIMAzole 5 MG TABLET PO SCH (08:17)
[2022-12-16] MEDS: FUROSEMIDE 20 MG TAB PO SCH (08:18)
[2022-12-16] MEDS: LOSARTAN POTASSIUM 50 MG TAB PO SCH (08:18)
[2022-12-16] MEDS: SPIRONOLACTONE 25 MG TAB PO SCH (08:19)
[2022-12-16] MEDS: PRAMIPEXOLE DIHYDROCHLO 0.25 MG TAB PO SCH (08:19)
[2022-12-16] MEDS: POTASSIUM CHLORIDE 10 MEQ TABCR PO SCH (08:20)
--- NOTE | 2022-12-16 08:43 | XRay Report ---
XR chest 1V portable HISTORY: aspiration pneumonitis COMPARISON: Chest 06/11/2023. FINDINGS: There are low lung volumes. The cardiac silhouette remains mildly enlarged. The upper lung zones appear clear. Old, healed right-sided rib fractures again noted. Left basilar linear densities favor subsegmental atelectasis or scarring. No evidence for pulmonary edema. Suspect trace bilateral pleural effusions. IMPRESSION: 1. Left basilar linear densities favor subsegmental atelectasis or scarring. This is similar to the p rior studies. 2. Low lung volumes with trace bilateral pleural effusions. 3. No new focal lung consolidations to suggest a pneumonia. ACT 112: Negative or not required by law. Electronically signed by: Demian Encinas M.D. 12/16/2022 8:42 AM
--- NOTE | 2022-12-16 09:48 | Electrocardiogram Report ---
Test Reason : Blood Pressure : / mmHG Vent. Rate : 086 BPM Atrial Rate : 086 BPM P-R Int : 166 ms QRS Dur : 074 ms QT Int : 368 ms P-R-T Axes : 030 -15 042 degrees QTc Int : 440 ms Normal sinus rhythm Low voltage QRS Borderline ECG When compared with ECG of 24-NOV-2016 16:37, No significant change was found Confirmed by Tanner Martinez ([id number]) on 12/16/2022 9:47:42 AM Referred By: Sabina Saleh Confirmed By:Tanner Martinez
--- NOTE | 2022-12-16 12:53 | Discharge Summary ---
Date of Service December 16, 2022 Admission HPI Per Admitting Provider Suzette is seen at the bedside post colonoscopy in and recovery. She reports that post procedurally she has had a sore throat, has had an increased cough which is now starting to improve, and was coughing up some clear mucus which is now starting to improve. She was short of breath initially, she is not currently short of breath on oxime mask at 2 L. She was very wheezy, this is improved with an albuterol treatment and time. She reports she has a history of COPD, and medications were reconciled and accurate just prior to her procedure. She denies fever, chills, sweats, difficulty breathing, chest pain, chest pressure at time of bedside assessment. She is not lightheaded or dizzy. She is seen in the company of her who are agreeable to overnight observation for aspiration pneumonitis with risk of aspiration pneumonia. She has no medication allergies, does not use tobacco products, and does not use alcohol products. She has no abdominal pain, nausea following her colonoscopy. She did take her medications as directed this morning. Medical, surgical history, allergies, reviewed Principal Diagnosis Aspiration pneumonitis, acute exacerbation COPD Discharge Exam General-alert and oriented x3, no fevers, no chills HEENT-head atraumatic and normocephalic, pupils equal and reactive to light, extraocular muscles intact Neck-no lymphadenopathy or thyromegaly, trachea midline Chest-clear to auscultation percussion. No rales wheezing or rhonchi Cardiac-regular rate and rhythm, normal S1 and S2, no murmurs Abdomen-normal bowel sounds, nontender, no hepatosplenomegaly Extremities-no cyanosis, clubbing, or edema Neuro-cranial nerves II through XII intact, motor and sensory function within normal limits, strength symmetrical , no focal deficits Psych-normal affect, normal mood Discharge Data Allergies Allergy/AdvReac Type Severity Reaction Status Date / Time gabapentin Allergy Intermediate DIZZINESS/T Verified 12/12/22 11:23 REMORS latex Allergy Mild RASH Verified 12/12/22 11:23 Procedures Performed Operation Date: 12/12/22 12:00 Actual Procedures p Colonoscopy Polypectomy - Nikko Floyd MD Hospital Course (1) Aspiration pneumonitis: Resolved with intravenous steroid therapy. Chest x-ray done today, December 16, looks good. She is now on room air. She will continue with a prednisone taper at home (2) GERD (gastroesophageal reflux disease): Controlled with PPI therapy (3) Hyperlipidemia: Controlled with statin therapy (4) Hypertension: Controlled with current medication therapy Plan Home today, December 16, on a prednisone tapering dose Total Time Total Time Spent Total Time Spent (In Minutes): 35 minutes Discharge Plan Discharge Items Patient Disposition: Home - Self-Care Reason For Visit: AHRF, SUSPECTED ASPIRATION PNEUMONITIS Discharge Diagnosis: colon polyp Activity: Per Instructions section Non-emergency contact: Primary Care Provider Call non-emergency contact if: your temperature is above 101 Follow-up/Referrals: Sabina Saleh MD [Primary Care Provider] - Diet: Heart Healthy Addtl Attending Provider Instructions: --No exercising or heavy lifting for 24 hours --Do not drink alcohol for the rest of the day --Do not drive a car or operate machinery until the day after the procedure --Do not make any important life decisions or sign important papers in the next 24 hours Pending Studies at Discharge: No Stand-Alone Forms: My [facility] Medications and DC Order Prescriptions: New prednisone 10 mg tablet See Rx Instructions .ROUTE .COMPLEX Qty: 12 0RF Rx Instructions: 10 mg orally 3 times a day for 2 days, then 10 mg twice a day for 2 days, then 10 mg once a day for 2 days, then stop Continued ferrous sulfate 325 mg (65 mg iron) tablet 325 mg PO QAM Sutab 1.479-0.188- 0.225 gram tablet See Rx Instructions PO .COMPLEX Qty: 24 0RF Rx Instructions: Take per split dose instructions. PLEASE USE COUPON BIN: [id number] PCN: DENI GROUP#: [id number] doxazosin 4 mg tablet 2 mg PO HS losartan 100 mg tablet 100 mg PO QAM simvastatin 20 mg tablet 20 mg PO HS cholecalciferol (vitamin D3) [Vitamin D3] 1,000 unit capsule 1,000 units PO BID famotidine 20 mg tablet 20 mg PO QPM (DME) CPAP Machine Misc See Rx Instructions .ROUTE .MEDSUPPLY Qty: 1 0RF Rx Instructions: INCREASE CPAP 14CM. YASMINE'S potassium chloride 10 mEq tablet extended release 10 meq PO TID zolpidem [Ambien] 5 mg tablet 5 mg PO ONCE Qty: 1 0RF Label Comments: TO TAKE BEFORE SLEEP STUDY WEEK Rx Instructions: Take 1 tablet orally on arrival to sleep lab spironolactone 25 mg tablet 25 mg PO QAM furosemide [Lasix] 20 mg tablet 10 mg PO QAM meloxicam 7.5 mg tablet 7.5 mg PO DAILY fluticasone propionate 50 mcg/actuation spray,suspension 2 spray intranasal DAILY Qty: 15.8 2RF Label Comments: TAKES PRN Rx Instructions: administer into each nostril metoprolol succinate 50 mg Tablet Extended Release 24 Hr 50 mg PO QPM PreserVision AREDS-2 250-90-40-1 mg Capsule 1 tab PO BID pramipexole 0.25 mg tablet 0.25 mg PO BID methimazole 5 mg Tablet 2.5 mg PO QAM Discharge Orders: Discharge Order (Routine); Ordered 12/16/22 Ordered By: Darryl Hoffmann Admission Data Admit Date/Time: 12/12/22 15:21 Attending Provider: Darryl Hoffmann Admit Provider: Joe Thompson Primary Care Provider: Sabina Saleh Coding Level of Care Code HOSP INP/OBS DISCH >30 MIN Diagnoses Aspiration pneumonitis J69.0 GERD (gastroesophageal reflux disease) K21.9 Hyperlipidemia E78.5 Hypertension I10
== END 2022-12-16 13:31 | disposition home or self-care (01) | DRG 205 ==
LOC: ENDO 11:07 → 2N 15:21 → SUATTDRO 15:21